=== PATIENT | female | born 1930 | race Caucasian/White ===

== ENCOUNTER 2017-11-16 12:55 | Emergency (ER) | payer OTHER ==
[2017-11-16] MEDS ORDERED: ONDANSETRON 4 MG/2 ML VIAL ONE ×2 (15:15→16:26)
[2017-11-16] MEDS ORDERED: NA CHLORIDE 0.9% 1,000 ML ONE (15:15)
[2017-11-16 15:16] LABS: Absolute Lymphocytes (CBC) 2.5 K/uL (0.7-4.9); Absolute Monocytes 1.2 K/uL (0.1-1.3); Absolute Neutrophil 6.1 K/uL (1.8-8.0); Basophils % 0.7 % (0-1.3); Eosinophils % 0.7 % (0-4.4); Hematocrit 33.9 % (36.0-45.0); Lymphocytes % 24.9 % (15.3-44.8); MCV 88.3 fL (80-100); MPV 8.1 fL (7.6-11.3); RBC Red Blood Cell Count 3.84 M/uL (3.86-4.86)
[2017-11-16 15:34] LABS: Albumin 3.4 g/dL (3.4-5.0); Bilirubin Direct 0.1 mg/dL (0-0.2); Bilirubin Total 0.3 mg/dL (0.2-1.0); Potassium 3.6 mmol/L (3.5-5.1); Protein, Total 6.6 g/dL (6.4-8.2)
[2017-11-16] MEDS ORDERED: PROMETHAZINE 25 MG/ML VIAL ONE (16:50)
--- NOTE | 2017-11-16 17:45 | RAD REPORT ---
EXAM DESCRIPTION: CT - Abdomen Pelvis W Contrast - 11/16/2017 5:30 pm CLINICAL HISTORY: Left-sided abdominal pain, patient details history of diverticulitis diagnosis 1 w [id number] earlier COMPARISON: No recent imaging, January 2017 study reviewed. TECHNIQUE: Biphasic, helical CT imaging of the abdomen and pelvis was performed following 100 ml non -ionic IV contrast. Oral contrast was given. All CT scans are performed using dose optimization technique as appropriate and may include automated exposure control or mA/KV adjustment according to patient size. FINDINGS: Chronic atelectasis changes are present abutting the chronic right hemidiaphragm elevation . No pericardial thickening or effusion. The liver, spleen, and pancreas show no suspicious findings. Gallbladder and biliary tree are also wi thout suspicious finding. Symmetric renal function is seen with no hydronephrosis or suspicious renal mass. Patient has numerou s bilateral renal cysts, more so on the left. These are similar to the comparison. No pyelonephritis. No urinary bladder abnormalities. Patient has several vascular calcifications present. In the left s ayesha pelvis (image 78/102) there is a 2 mm calcific density potentially a distal left ureteral calculu s. Small atrophic uterus is present. No ovarian abnormality. No acute gastric finding. No small bowel dilatation, wall thickening or mass. Patient has very minima l left-sided diverticulosis. No diverticulitis, mass, wall thickening or other acute colon process. No free air, free fluid or inflammatory stranding. No hernia, mass or bulky lymphadenopathy. No adre nal abnormality. No suspicious bony findings. IMPRESSION: No diverticulitis or acute colon process. Patient has very little diverticulosis. A 2 millimeter calcification is seen in close proximity or within the distal left ureter. There is n o hydronephrosis, asymmetric function or other findings to indicate ureteral obstruction. Correlation is needed with any clinical presentation or UA abnormality that might indicate a stone. Otherwise, no abnormality seen that would explain left-sided symptoms.
[2017-11-16 19:02] LABS: Urine Blood NEGATIVE (NEG); Urine Glucose NEGATIVE (NEG); Urine Protein NEGATIVE (NEG); Urine Specific Gravity 1.015 (1.005-1.030)
[2017-11-16 19:03] LABS: Urine Bacteria <20 /HPF (<20); Urine Culture Reflex Order NOT NEEDED; Urine RBC <5 /HPF (NONE SEEN)
--- NOTE | 2017-11-16 19:06 | ER ---
Nurse's Notes [facility] Name: Itzel Nunez Age: 86 yrs Sex: Female : 1930 Arrival Date: 11/16/2017 Time: 12:58 Bed 3 Private MD: Sky Draper C Diagnosis: Unspecified abdominal pain Presentation: 11/16 13:20 Presenting complaint: Patient states: Thursday a week ago, i was dx with diverticulitis, hj and was Rx with 2 antibiotics; now, i have not been eating or drinking right; denies fever and chills; reports constipation and abd pain;. Transition of care: patient was not received from another setting of care. Onset of symptoms was November 16, 2017. Risk Assessment: Do you want to hurt yourself or someone else? Patient reports no desire to harm self or others. Initial Sepsis Screen: Does the patient meet any 2 criteria? No. Patient's initial sepsis screen is negative. Does the patient have a suspected source of infection? No. Patient's initial sepsis screen is negative. Care prior to arrival: None. 13:20 Method Of Arrival: Ambulatory 13:20 Acuity: BRENDAN 3 hj Triage Assessment: 13:23 General: Appears in no apparent distress. uncomfortable, Behavior is calm, cooperative, hj appropriate for age. Pain: Complains of pain in abdomen. GI: Reports lower abdominal pain. Historical: - Allergies: 13:23 No Known Allergies; hj - Home Meds: 13:23 Metoprolol Tartrate Oral [Active]; Tramadol Oral for Chronic pain [Active]; Hyzaar Oral hj [Active]; - PMHx: 13:23 Back pain; High Cholesterol; Hypertension; hj - PSHx: 13:23 None; hj - Immunization history:: Adult Immunizations up to date. - Social history:: Smoking status: Patient/guardian denies using tobacco, Patient/guardian denies using alcohol. - Ebola Screening: : Patient negative for fever greater than or equal to 101.5 degrees Fahrenheit, and additional compatible Ebola Virus Disease symptoms Patient denies exposure to infectious person Patient denies travel to an Ebola-affected area in the 21 days before illness onset. Screenin:24 Abuse screen: Denies threats or abuse. Denies injuries from another. Nutritional hj screening: No deficits noted. Tuberculosis screening: No symptoms or risk factors identified. Fall Risk None identified. Assessment: 13:24 GI: Bowel sounds present X 4 quads. Abd is soft Abdomen is tender to palpation. hj 15:00 General: Appears in no apparent distress. comfortable, well groomed, well developed, sg well nourished, Behavior is calm, cooperative, appropriate for age. Pain: Complains of pain in abdomen Quality of pain is described as aching. Neuro: Level of Consciousness is awake, alert, obeys commands, Oriented to person, place, time, situation, Hall Manager are equal bilaterally Moves all extremities. Full function Speech is normal, Facial symmetry appears normal. Cardiovascular: Heart tones S1 S2 present Capillary refill is brisk in bilateral fingers Patient's skin is warm and dry. Chest pain is denied. Respiratory: Airway is patent Respiratory effort is even, unlabored, Respiratory pattern is regular, symmetrical. : No signs and/or symptoms were reported regarding the genitourinary system. EENT: No signs and/or symptoms were reported regarding the EENT system. Derm: Skin is pink, warm \T\ dry. Musculoskeletal: Circulation, motion, and sensation intact. Range of motion: intact in all extremities, Swelling absent. 15:48 Reassessment: Patient appears in no apparent distress at this time. Patient and/or sg family updated on plan of care and expected duration. Pain level reassessed. pt reports finishing her PO contrast, CT notified. 16:27 Reassessment: Patient appears in no apparent distress at this time. Patient and/or sg family updated on plan of care and expected duration. Pain level reassessed. Patient is alert, oriented x 3, equal unlabored respirations, skin warm/dry/pink. Patient states symptoms have not improved. 16:51 Reassessment: Patient appears in no apparent distress at this time. Patient and/or sg family updated on plan of care and expected duration. Pain level reassessed. Patient is alert, oriented x 3, equal unlabored respirations, skin warm/dry/pink. awaiting CT scan at this time, will continue to monitor Patient states symptoms have not improved. 19:00 Reassessment: RECD REPORT FROM LAUREN GALVAN. 86YO WF P/W ABD PAIN, ALL CURRENT ORDERS bp COMPLETED. VS STABLE, NO ACUTE FINDINGS AT THIS TIME. 19:17 Reassessment: Patient appears in no apparent distress at this time. Patient and/or tl2 family updated on plan of care and expected duration. Pain level reassessed. Patient is alert, oriented x 3, equal unlabored respirations, skin warm/dry/pink. Pt and family verbalized understanding of discharge instructions, need for follow up and prescription usage. Pt taken out of ER by family via wheelchair Patient states feeling better. Vital Signs: 13:24 BP 104 / 60; Pulse 65; Resp 18; Temp 98.0(O); Pulse Ox 95% on R/A; Weight 64.41 kg; hj Height 5 ft. 2 in. (157.48 cm); 17:07 BP 152 / 74; Pulse 64; Resp 18; Pulse Ox 92% on R/A; sv 18:33 BP 132 / 61; Pulse 75; Resp 18; Pulse Ox 93% ; mh5 19:00 BP 149 / 81; Pulse 82; Resp 14; Pulse Ox 91% ; bp 13:24 Body Mass Index 25.97 (64.41 kg, 157.48 cm) ED Course: 12:58 Patient arrived in ED. rg4 12:58 Sky Draper MD is Private Physician. rg4 13:22 Triage completed. hj 13:24 Arm band placed on right wrist. hj 13:24 Patient has correct armband on for positive identification. Placed in gown. Bed in low hj position. Call light in reach. Side rails up X 1. Adult w/ patient. 14:14 Wilman Amaya, MANDY is Primary Nurse. sg 14:42 David Godinez PA is PHCP. cp 14:42 David Luu MD is Attending Physician. cp 15:00 Initial lab(s) drawn, by sd, sent to lab. Inserted saline lock: 22 gauge in left sg antecubital area, using aseptic technique. Blood collected. 16:[address] Scan. sg 17:30 CT completed. Patient moved to CT via stretcher. Patient moved back from CT. cw1 17:30 CT Abd/Pelvis - W/Contrast In Process Unspecified. EDMS 18:30 Straight cath inserted, using sterile technique, 16 Fr. Specimen obtained. Patient mh5 tolerated well. 18:31 Urine Microscopic Only Sent. mh5 19:05 Sky Draper MD is Referral Physician. cp 19:17 Primary Nurse role handed off by Wilman Amaya RN sg 19:17 No provider procedures requiring assistance completed. IV discontinued, intact, tl2 bleeding controlled, No redness/swelling at site. Pressure dressing applied. 19:18 Chavez Lorenzo, RN is Primary Nurse. bp Administered Medications: 15:10 Drug: NS 0.9% 1000 ml Route: IV; Rate: 75 ml/hr; Site: left antecubital; sg 19:21 Follow up: IV Status: Order to discontinue infusion tl2 15:10 Drug: NS 0.9% 250 ml Route: IV; Rate: bolus; Site: left antecubital; sg 19:21 Follow up: IV Status: Completed infusion; IV Intake: 250ml tl2 15:10 Drug: Zofran 4 mg Route: IVP; Site: left antecubital; sg 16:10 Follow up: Response: No adverse reaction; Nausea unchanged sg 16:26 Drug: Zofran 4 mg Route: IVP; Site: left antecubital; sg 19:20 Follow up: Response: Marked relief of symptoms bp 16:49 Drug: Phenergan 6.25 mg Route: IVP; Site: left antecubital; sv 19:20 Follow up: Response: Marked relief of symptoms bp Intake: 19:21 IV: 250ml; Total: 250ml. tl2 Outcome: 19:05 Discharge ordered by MD. cp 19:17 Discharged to home via wheelchair, with family. tl2 19:17 Condition: stable 19:17 Discharge instructions given to patient, family, Instructed on discharge instructions, follow up and referral plans. medication usage, Demonstrated understanding of instructions, follow-up care, medications, Prescriptions given X 1. 19:32 Patient left the ED. tl2 Signatures: Dispatcher [employer] EDRadha Wang RN Wilman Mendez RN RN Kimberli Ricks cw1 Homer Mtz RN David Macias PA PA cp Knox, Taylor RN RN 2 Clari Perkins [facility] Mi Rodriguez [facility] Chavez Lorenzo, RN RN bp
--- NOTE | 2017-11-16 19:06 | EDPHYS ---
Physician Documentation [facility] Name: Itzel Nunez Age: 86 yrs Sex: Female : 1930 Arrival Date: 11/16/2017 Time: 12:58 Bed 3 Private MD: Sky Draper C ED Physician David Luu HPI: 11/16 14:47 This 86 yrs old Female presents to ER via Ambulatory with complaints of cp Abdominal Pain. 14:47 The patient presents with abdominal pain in the left upper quadrant. Onset: The cp symptoms/episode began/occurred gradually. The symptoms do not radiate. Associated signs and symptoms: Pertinent positives: constipation, nausea, decreased appetite. The symptoms are described as constant. Modifying factors: the symptoms are aggravated by pressure. Patient reports being diagnosed with diverticulitis 1 week ago and being prescribed oral antibiotics. Patient reports continued pain and decreased appetite. Historical: - Allergies: 13:23 No Known Allergies; hj - Home Meds: 13:23 Metoprolol Tartrate Oral [Active]; Tramadol Oral for Chronic pain [Active]; Hyzaar Oral hj [Active]; - PMHx: 13:23 Back pain; High Cholesterol; Hypertension; hj - PSHx: 13:23 None; hj - Immunization history:: Adult Immunizations up to date. - Social history:: Smoking status: Patient/guardian denies using tobacco, Patient/guardian denies using alcohol. - Ebola Screening: : Patient negative for fever greater than or equal to 101.5 degrees Fahrenheit, and additional compatible Ebola Virus Disease symptoms Patient denies exposure to infectious person Patient denies travel to an Ebola-affected area in the 21 days before illness onset. ROS: 14:50 Constitutional: Positive for poor PO intake, Negative for body aches, chills, fever. cp 14:50 Eyes: Negative for injury, pain, redness, and discharge. cp 14:50 ENT: Negative for drainage from ear(s), ear pain, sore throat, difficulty swallowing, difficulty handling secretions. 14:50 Cardiovascular: Negative for chest pain, edema, palpitations. 14:50 Respiratory: Negative for cough, shortness of breath, wheezing. 14:50 Abdomen/GI: Positive for abdominal pain, nausea, constipation, anorexia, Negative for vomiting, diarrhea, black/tarry stool, rectal bleeding. 14:50 Back: Negative for pain at rest, pain with movement, radiated pain. 14:50 : Negative for urinary symptoms. 14:50 Skin: Negative for cellulitis, rash. 14:50 Neuro: Negative for altered mental status, dizziness, headache, syncope, near syncope, weakness. 14:50 All other systems are negative. Exam: 15:00 Constitutional: The patient appears in no acute distress, alert, awake, well developed, cp well nourished. 15:00 Head/Face: Normocephalic, atraumatic. cp 15:00 Eyes: Periorbital structures: appear normal, Pupils: equal, round, and reactive to light and accomodation, Extraocular movements: intact throughout, Conjunctiva: normal, no exudate, no injection, Sclera: no appreciated abnormality, Lids and lashes: appear normal, bilaterally. 15:00 ENT: External ear(s): are unremarkable, Ear canal(s): are normal, clear, TM's: bulging, is not appreciated, dullness, bilaterally, erythema, is not appreciated, bilaterally, Nose: is normal, Mouth: Lips: moist, Oral mucosa: pink and intact, moist, Posterior pharynx: is normal, airway is patent, no erythema, no exudate. 15:00 Neck: ROM/movement: is normal, is supple, without pain, no range of motions limitations, no meningismus, no nuchal rigidity. 15:00 Chest/axilla: Inspection: normal, Palpation: is normal, no crepitus, no tenderness. 15:00 Cardiovascular: Rate: normal, Rhythm: regular. 15:00 Respiratory: the patient does not display signs of respiratory distress, Respirations: normal, no use of accessory muscles, no retractions, no splinting, no tachypnea, labored breathing, is not present, Breath sounds: are clear throughout, no decreased breath sounds, no stridor, no wheezing. 15:00 Abdomen/GI: Inspection: abdomen appears normal, Bowel sounds: active, all quadrants, Palpation: soft, in all quadrants, mild abdominal tenderness, in the left upper quadrant, rebound tenderness, is not appreciated, voluntary guarding, is not appreciated, involuntary guarding, is not appreciated. 15:00 Back: pain, is absent, ROM is normal. 15:00 Skin: cellulitis, is not appreciated, no rash present. 15:00 Neuro: Orientation: to person, place \T\ time. Mentation: lucid, able to follow commands, Cerebellar function: is grossly normal, Motor: moves all fours, strength is normal, Sensation: no obvious gross deficits. Vital Signs: 13:24 BP 104 / 60; Pulse 65; Resp 18; Temp 98.0(O); Pulse Ox 95% on R/A; Weight 64.41 kg; hj Height 5 ft. 2 in. (157.48 cm); 17:07 BP 152 / 74; Pulse 64; Resp 18; Pulse Ox 92% on R/A; sv 18:33 BP 132 / 61; Pulse 75; Resp 18; Pulse Ox 93% ; mh5 19:00 BP 149 / 81; Pulse 82; Resp 14; Pulse Ox 91% ; bp 13:24 Body Mass Index 25.97 (64.41 kg, 157.48 cm) hj MDM: 14:42 Patient medically screened. cp 15:00 Differential diagnosis: bowel obstruction, cholecystitis, Cholelithiasis, cp diverticulitis, gastritis, pancreatitis, Pyelonephritis, Ureterolithiasis, urinary tract infection. 18:00 Data reviewed: vital signs, nurses notes, lab test result(s), radiologic studies, CT cp scan. 18:36 Physician consultation: A Bonny CARVAJAL was called at 18:36, left message on voicemail. cp 19:05 Physician consultation: A Bonny CARVAJAL was called at 19:05, left message on voicemail. cp 11/16 14:51 Order name: Amylase, Serum; Complete Time: 16:31 cp 11/16 14:51 Order name: Basic Metabolic Panel; Complete Time: 16:31 cp 11/16 17:57 Interpretation: Normal except: GFR 42. cp 11/16 14:51 Order name: CBC with Diff; Complete Time: 16:31 cp 11/16 16:31 Interpretation: Normal except: RBC 3.84; HGB 11.5; HCT 33.9. cp 11/16 14:51 Order name: Creatinine for Radiology; Complete Time: 16:31 cp 11/16 17:14 Interpretation: Abnormal: GFR 42. cp 11/16 14:51 Order name: Hepatic Function; Complete Time: 16:31 cp 11/16 17:53 Interpretation: Normal except: AST 14. cp 11/16 14:51 Order name: Lipase; Complete Time: 16:31 cp 11/16 14:51 Order name: Urine Microscopic Only; Complete Time: 19:04 cp 11/16 19:04 Interpretation: Reviewed. 11/16 14:51 Order name: CT Abd/Pelvis - W/Contrast; Complete Time: 17:47 cp 11/16 18:56 Order name: Urine Dipstick--Ancillary (enter results); Complete Time: 19:04 rg2 11/16 13:50 Order name: Urine Dipstick-Ancillary (obtain specimen); Complete Time: 19:17 hj 11/16 14:51 Order name: IV Saline Lock; Complete Time: 15:18 cp 11/16 14:51 Order name: Labs collected and sent; Complete Time: 15:18 cp 11/16 18:00 Order name: Straight Cath - Urine; Complete Time: 18:31 sg Administered Medications: 15:10 Drug: NS 0.9% 1000 ml Route: IV; Rate: 75 ml/hr; Site: left antecubital; sg 19:21 Follow up: IV Status: Order to discontinue infusion tl2 15:10 Drug: NS 0.9% 250 ml Route: IV; Rate: bolus; Site: left antecubital; sg 19:21 Follow up: IV Status: Completed infusion; IV Intake: 250ml tl2 15:10 Drug: Zofran 4 mg Route: IVP; Site: left antecubital; sg 16:10 Follow up: Response: No adverse reaction; Nausea unchanged sg 16:26 Drug: Zofran 4 mg Route: IVP; Site: left antecubital; sg 19:20 Follow up: Response: Marked relief of symptoms bp 16:49 Drug: Phenergan 6.25 mg Route: IVP; Site: left antecubital; sv 19:20 Follow up: Response: Marked relief of symptoms bp Disposition: 11/17 07:21 Co-signature as Attending Physician, David Luu MD I agree with the assessment and arash plan of care. Disposition: 11/16/17 19:05 Discharged to Home. Impression: Unspecified abdominal pain. - Condition is Stable. - Discharge Instructions: Abdominal Pain, Adult. - Prescriptions for Zofran 4 mg Oral Tablet - take 1 tablet by ORAL route every 12 hours As needed; 20 tablet. - Medication Reconciliation Form, Thank You Letter, Antibiotic Education, Prescription Opioid Use form. - Follow up: Sky Draper MD; When: 2 - 3 days; Reason: Recheck today's complaints. - Problem is new. - Symptoms have improved. Signatures: Dispatcher [employer] Radha Meza, RN RN Wilman Corado RN RN sg Anderson, Corey, MD MD cha Joaquin, Henry RN David Macias, LIZABETH BARONE cp Brittny Ojeda RN RN tl2 Chavez Lorenzo RN bp Corrections: (The following items were deleted from the chart) 11/16 19:32 19:05 11/16/2017 19:05 Discharged to Home. Impression: Unspecified abdominal pain. tl2 Condition is Stable. Forms are Medication Reconciliation Form, Thank You Letter, Antibiotic Education, Prescription Opioid Use. Follow up: Sky Draper; When: 2 - 3 days; Reason: Recheck today's complaints. Problem is new. Symptoms have improved. cp
== END 2017-11-16 19:32 | disposition home or self-care (01) ==
LOC: ER 12:55
DX: R10.12 Left upper quadrant pain (principal); I10 Essential (primary) hypertension; E78.00 Pure hypercholesterolemia, unspecified
CPT/HCPCS: 36415; 74177; 80048; 80076; 82150; 83690; 85025; J2405 ×2; J2550; J7030; Q9967; 51702; 81003; 81015; 96361; 96365; 96366; 96374; 96375; 99284

== ENCOUNTER 2018-03-28 11:27 | Inpatient (IN) | payer OTHER ==
[2018-03-28 12:35] LABS: Absolute Lymphocytes (CBC) 1.9 K/uL (0.7-4.9); Absolute Monocytes 1.1 K/uL (0.1-1.3); Absolute Neutrophil 6.9 K/uL (1.8-8.0); Basophils % 0.5 % (0-1.3); Eosinophils % 0.3 % (0-4.4); Hematocrit 37.7 % (36.0-45.0); MCH 31.1 pg (27.0-35.0); MCV 90.8 fL (80-100); MPV 8.2 fL (7.6-11.3); Monocytes % 11.1 % (3.3-12.3); RBC Red Blood Cell Count 4.15 M/uL (3.86-4.86)
[2018-03-28 12:45] LABS: Protime INR 1.06
[2018-03-28 12:47] LABS: Albumin 3.5 g/dL (3.4-5.0); Bilirubin Direct 0.2 mg/dL (0-0.2); Bilirubin Total 0.7 mg/dL (0.2-1.0); Magnesium 1.9 mg/dL (1.8-2.4); Potassium 3.6 mmol/L (3.5-5.1); Protein, Total 7.5 g/dL (6.4-8.2); Troponin (Emerg Dept Use Only) 0.08 ng/mL (0.0-0.045)
[2018-03-28] MEDS ORDERED: NA CHLORIDE 0.9% 1,000 ML ONE (13:04)
--- NOTE | 2018-03-28 13:05 | RAD REPORT ---
EXAM DESCRIPTION: CT - Head C Spine Cap Wo Con - 03/28/2018 12:32 pm CLINICAL HISTORY: Trauma, head and neck injury. Chest, abdomen and pelvis pain. PAIN COMPARISON: Abdomen Pelvis W Contrast dated 11/16/2017; Abdomen Pelvis Wo Contrast dated 01/28/20 17; Facial Bones W/ Mpr dated 07/27/2015; Thorax Wo Con dated 12/14/2015 TECHNIQUE: CT head without contrast. CT cervical spine without contrast with coronal and sagittal reformatted images. CT chest, abdomen and pelvis without contrast with coronal and sagittal reformatted images of the spi ne. All CT scans are performed using dose optimization technique as appropriate and may include automated exposure control or mA/KV adjustment according to patient size. FINDINGS: CT HEAD WITHOUT CONTRAST: No intracranial hemorrhage, hydrocephalus or extra-axial fluid collection. Mild generalized brain atr ophy is present with mild periventricular and deep white matter chronic microvascular ischemic change s. No areas of brain edema or midline shift. The paranasal sinuses and mastoids are clear. The calvarium is intact. CT CERVICAL SPINE WITHOUT CONTRAST: No fracture or subluxation. Prominent mid and lower cervical degenerative changes. The prevertebral s oft tissues are normal in thickness. CT CHEST, ABDOMEN, PELVIS WITHOUT CONTRAST: NOTE: Lack of contrast is a significant limitation in the assessment of trauma related findings. Spec ifically, solid organ, vascular and bowel evaluation is significantly limited. Mild linear subsegmental atelectasis in both lung bases.No evidence of pulmonary infiltrate or contus ion.No pneumothorax or pericardial/pleural fluid. No evidence of intra-abdominal visceral injury, free fluid or free air is seen within the above detai led limitations. No concerning pelvic findings. Mild to moderate compression fracture affects T11, likely acute. No significant canal compromise susp ected. IMPRESSION: Acute T11 compression fracture seen, with estimated loss of vertebral body height at 20% . No significant central canal compromise suspected.
--- NOTE | 2018-03-28 13:09 | RAD REPORT ---
EXAM DESCRIPTION: RAD - Chest Single View - 03/28/2018 12:45 pm CLINICAL HISTORY: COUGH Chest pain. COMPARISON: CHEST SINGLE VIEW dated 05/01/2013; CHEST PA AND LAT 2 VIEW dated 04/29/2010; CHEST PA AND LAT 2 VIEW dated 11/26/2009; CHEST PA AND LAT 2 VIEW dated 08/31/2008 FINDINGS: Portable technique limits examination quality. Chronic elevation of right hemidiaphragm is noted. The lungs appear grossly clear. The heart is moder ately prominent size. No displaced fractures. IMPRESSION: No acute intrathoracic process suspected.
--- NOTE | 2018-03-28 13:12 | RAD REPORT ---
EXAM DESCRIPTION: RAD - Elbow Left 3 View - 03/28/2018 12:45 pm CLINICAL HISTORY: PAIN COMPARISON: No comparisons FINDINGS: Diffuse osteopenia is seen with the laceration present in the olecranon soft tissues. No f racture or dislocation of the left elbow seen
--- NOTE | 2018-03-28 13:37 | ER ---
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 Patient reports she was able to get herself up onto bed. Reports pain to lower back, left elbow, and bilateral knees. Back pain is chronic. Transition of care: patient was not received from another setting of care. 11:32 Method Of Arrival: Wheelchair aj 11:34 Care prior to arrival: None. Mechanism of Injury: Fall from standing position. Trauma aj event details: Injury occurred in the [facility], Injury occurred: at home. Injury occurred: March 26, 2018. 11:34 Acuity: BRENDAN 3 aj 11:45 Onset of symptoms was March 2018. Risk Assessment: Do you want to hurt yourself or aa5 someone else? Patient reports no desire to harm self or others. Initial Sepsis Screen: Does the patient meet any 2 criteria? No. Patient's initial sepsis screen is negative. Does the patient have a suspected source of infection? No. Patient's initial sepsis screen is negative. Trauma Activation: Not Applicable Physician: ED Physician; Name: ; Notified At: ; Arrived At: Physician: General Surgeon; Name: ; Notified At: ; Arrived At: Physician: Radiology; Name: ; Notified At: ; Arrived At: Physician: Respiratory; Name: ; Notified At: ; Arrived At: Physician: Lab; Name: ; Notified At: ; Arrived At: Historical: - Allergies: 11:37 No Known Allergies; aj - Home Meds: 11:37 Hyzaar Oral [Active]; Metoprolol Tartrate Oral [Active]; Tramadol Oral for Chronic pain aj [Active]; - PMHx: 11:37 Back pain; High Cholesterol; Hypertension; aj - PSHx: 11:37 None; aj - Immunization history: Last tetanus immunization: - up to date. - Social history:: Smoking status: Patient/guardian denies using tobacco. - Ebola Screening: : Patient negative for fever greater than or equal to 101.5 degrees Fahrenheit, and additional compatible Ebola Virus Disease symptoms Patient denies exposure to infectious person Patient denies travel to an Ebola-affected area in the 21 days before illness onset No symptoms or risks identified at this time. Screenin:15 Abuse screen: Denies threats or abuse. Nutritional screening: No deficits noted. aa5 Tuberculosis screening: No symptoms or risk factors identified. Fall Risk Fall in past 12 months (25 points). Secondary diagnosis (15 points) impaired mobility, IV access (20 points). Ambulatory Aid- Crutches/Cane/Walker (15 pts). Gait- Weak (10 pts.). Mental Status- Oriented to own ability (0 pts). Total [place] Fall Scale indicates High Risk Score (45 or more points). Fall prevention measures have been instituted. Side Rails Up X 2 Placed Close to Nursing Station Family Present and informed to notify staff if the need to leave the bedside. Primary Survey: 11:34 A: Airway: patent. Breathing/Chest: Respiratory pattern: regular, Respiratory effort: aj spontaneous, unlabored, Breath sounds: clear, bilaterally. Circulation: Skin color: pink. Disability Alert. Reassessment Airway Airway Patent Breathing/Chest Respiratory pattern Regular Respiratory effort Spontaneous Unlabored Circulation Color [place] Temperature Warm Dry Disability Alert. Assessment: 11:34 General: Appears in no apparent distress. comfortable, Behavior is calm, cooperative, aj appropriate for age. Pain: Complains of pain in low back area, left elbow, right leg and left leg. Neuro: Level of Consciousness is awake, alert, obeys commands, Oriented to person, place, time, situation, Appropriate for age. Respiratory: Airway is patent Respiratory effort is even, unlabored, Respiratory pattern is regular, symmetrical. Derm: Skin is intact, is healthy with good turgor, Skin is pink, warm \\T\\ dry. normal. Musculoskeletal: Circulation, motion, and sensation intact. Range of motion: intact in all extremities, Reports pain in low back area, left elbow, right leg and left leg. 11:45 General: Appears comfortable, Behavior is calm, cooperative. Pain: Complains of pain in aa5 right mid back and left elbow Pain does not radiate. Pain currently is 8 out of 10 on a pain scale. Quality of pain is described as aching, Pain began Pt reports back pain is chronic but was aggravated after a fall 2-3 days ago and left elbow pain since fall 2-3 days ago Is intermittent, Aggravated by Pt reports pain only with movement. Neuro: Level of Consciousness is awake, alert, obeys commands, Oriented to person, place, time, situation, Aircraft Inspector are weak bilaterally Moves all extremities. Speech is normal, Facial symmetry appears normal, Pupils are PERRLA, Reports generalized weakness . Cardiovascular: Heart tones S1 S2 present Rhythm is regular. Respiratory: Airway is patent Respiratory effort is even, unlabored, Respiratory pattern is regular, symmetrical, Breath sounds are clear bilaterally. Denies cough, shortness of breath. GI: Abdomen is round non-distended, Bowel sounds present X 4 quads. Abd is soft and non tender X 4 quads. Reports decreased appetite x 2-3 days ago. : No signs and/or symptoms were reported regarding the genitourinary system. EENT: No signs and/or symptoms were reported regarding the EENT system. Derm: Skin is pink, warm \\T\\ dry. Bruising that is dark purple, green, on left elbow. Musculoskeletal: Range of motion: intact in all extremities. 12:52 Reassessment: Patient and/or family updated on plan of care and expected duration. Pain aa5 level reassessed. Patient is alert, oriented x 3, equal unlabored respirations, skin warm/dry/pink. Pt back from radiology . 13:15 Reassessment: Pt assisted to bedside commode, urine specimen collected. . aa5 14:20 Reassessment: Patient and/or family updated on plan of care and expected duration. Pain aa5 level reassessed. Patient is alert, oriented x 3, equal unlabored respirations, skin warm/dry/pink. 14:20 Pain: Pain currently is 5 out of 10 on a pain scale. aa5 15:20 Reassessment: Patient is alert, oriented x 3, equal unlabored respirations, skin aa5 warm/dry/pink. Vital Signs: 11:34 BP 149 / 69; Pulse 72; Resp 20; Temp 97.7; Pulse Ox 97% on R/A; Weight 66.68 kg; Height aj 5 ft. 3 in. (160.02 cm); 12:00 BP 151 / 82; Pulse 77; Resp 18 S; Pulse Ox 95% on R/A; aa5 12:52 Pulse Ox 91% on R/A; aa5 12:53 BP 143 / 75; Pulse 67; Resp 18 S; Pulse Ox 95% on 2 lpm NC; aa5 13:32 BP 144 / 78; Pulse 72; Resp 20 S; Pulse Ox 96% on 2 lpm NC; aa5 11:34 Body Mass Index 26.04 (66.68 kg, 160.02 cm) aj 12:52 Pt denies SOB, pt states "My oxygen is normally 94 or 95" aa5 [place] Coma Score: 11:34 Eye Response: spontaneous(4). Verbal Response: oriented(5). Motor Response: obeys aj commands(6). Total: 15. 12:00 Eye Response: spontaneous(4). Verbal Response: oriented(5). Motor Response: obeys aa5 commands(6). Total: 15. 12:53 Eye Response: spontaneous(4). Verbal Response: oriented(5). Motor Response: obeys aa5 commands(6). Total: 15. 13:32 Eye Response: spontaneous(4). Verbal Response: oriented(5). Motor Response: obeys aa5 commands(6). Total: 15. Trauma Score (Adult): 11:34 Eye Response: spontaneous(1); Verbal Response: oriented(1); Motor Response: obeys aj commands(2); Systolic BP: > 89 mm Hg(4); Respiratory Rate: 10 to 29 per min(4); Lucile Score: 15; Trauma Score: 12 ED Course: 11:29 Patient arrived in ED. as 11:30 Sky Draper MD is Private Physician. as 11:35 Triage completed. aj 11:37 Arm band placed on left wrist. Patient placed in an exam room. aj 11:38 David Luu MD is Attending Physician. arash 11:42 Dorcas Hinson, RN is Primary Nurse. aa5 11:45 Patient has correct armband on for positive identification. Placed in gown. Bed in low aa5 position. Call light in reach. Side rails up X2. sample worker on. Pulse ox on. NIBP on. 12:05 Radiology exam delayed due to dorcas to call when pts ready. eh 12:10 Inserted saline lock: 20 gauge in right antecubital area, using aseptic technique. aa5 Blood collected. 12:10 Initial lab(s) drawn, by me, sent to lab. First set of blood cultures drawn by me. aa5 12:20 Second set of blood cultures drawn by me. aa5 12:30 CT completed. Patient moved to CT via stretcher. Patient moved back from CT. eh 12:33 CT Traumagram (Head C Spine CAP wo con) In Process Unspecified. EDMS 12:43 XRAY Chest (1 view) In Process Unspecified. EDMS 12:43 Elbow Left 3 View XRAY In Process Unspecified. EDMS 13:21 No provider procedures requiring assistance completed. aa5 13:35 Sky Draper MD is Hospitalizing Provider. [facility] 13:57 CT completed. Patient moved to CT via stretcher. Patient moved back from CT. 15:20 Patient admitted, IV remains in place. aa5 Administered Medications: 13:00 Drug: NS 0.9% 1000 ml Route: IV; Rate: 125 ml/hr; Site: right antecubital; aa5 15:20 Follow up: IV Status: Infusion continued upon admission aa5 14:17 Drug: SOLU-Medrol 125 mg Route: IVP; Site: right antecubital; aa5 14:25 Follow up: Response: No adverse reaction aa5 14:18 Drug: Lovenox 60 mg Route: Sub-Q; Site: right lower abdomen; aa5 15:00 Follow up: Response: No adverse reaction aa5 14:20 Drug: Xopenex 2.5 mg Route: Inhalation; aa5 14:20 Drug: AtroVENT Aerosol 0.5 mg Route: Inhalation; aa5 14:20 Drug: Rocephin - (cefTRIAXone) 1 grams {Note: administered slow IVP per pharmacy aa5 protocol at this time. .} Route: IVPB; Infused Over: 30 mins; Site: right antecubital; 14:40 Follow up: Response: No adverse reaction aa5 14:37 Not Given (Pt reports taking ASA 325mg this morning ): Aspirin 162 mg PO once aa5 Outcome: 13:37 Decision to Hospitalize by Provider. [facility] 15:20 Admitted to Tele accompanied by tristin, via wheelchair, with oxygen, with chart, Report aa5 called to MANDY Shafer 15:20 Condition: stable 15:20 Instructed on the need for admit, Demonstrated understanding of instructions. 15:36 Patient left the ED. aa5 Signatures: Dispatcher [employer] Cynthia Stewart, MANDY RN David Baeza MD MD cha Hagler, Ervin eh Martinez, Amelia as Calderon, Audri, MANDY RN aa5 Corrections: (The following items were deleted from the chart) 13:30 12:53 BP 143 / 75; Pulse 67bpm; Resp 18bpm; Spontaneous; Pulse Ox 95% Nasal Cannula; aa5aa5 13:30 12:52 Pulse Ox 91% RA; aa5 aa5 14:39 14:20 Rocephin - (cefTRIAXone) 1 grams IVPB in right antecubital over 30 mins aa5 aa5
--- NOTE | 2018-03-28 13:37 | EDPHYS ---
Physician Documentation [facility] Name: Itzel Nunez Age: 87 yrs Sex: Female : 1930 Arrival Date: 03/28/2018 Time: 11:29 Bed 7 Private MD: Sky Draper C ED Physician David Luu HPI: 03/28 13:30 This 87 yrs old Female presents to ER via Wheelchair with complaints of arash Weakness. Historical: - Allergies: 11:37 No Known Allergies; aj - Home Meds: 11:37 Hyzaar Oral [Active]; Metoprolol Tartrate Oral [Active]; Tramadol Oral for Chronic pain aj [Active]; - PMHx: 11:37 Back pain; High Cholesterol; Hypertension; aj - PSHx: 11:37 None; aj - Immunization history: Last tetanus immunization: - up to date. - Social history:: Smoking status: Patient/guardian denies using tobacco. - Ebola Screening: : Patient negative for fever greater than or equal to 101.5 degrees Fahrenheit, and additional compatible Ebola Virus Disease symptoms Patient denies exposure to infectious person Patient denies travel to an Ebola-affected area in the 21 days before illness onset No symptoms or risks identified at this time. ROS: 13:30 Constitutional: Negative for fever, chills, and weight loss, Eyes: Negative for injury, arash pain, redness, and discharge, ENT: Negative for injury, pain, and discharge, Neck: Negative for injury, pain, and swelling, Cardiovascular: Negative for chest pain, palpitations, and edema, Abdomen/GI: Negative for abdominal pain, nausea, vomiting, diarrhea, and constipation, : Negative for injury, bleeding, discharge, and swelling, MS/Extremity: Negative for injury and deformity, Skin: Negative for injury, rash, and discoloration, Psych: Negative for depression, anxiety, suicide ideation, homicidal ideation, and hallucinations, Allergy/Immunology: Negative for hives, rash, and allergies, Endocrine: Negative for neck swelling, polydipsia, polyuria, polyphagia, and marked weight changes, Hematologic/Lymphatic: Negative for swollen nodes, abnormal bleeding, and unusual bruising. 13:30 Respiratory: Positive for cough, shortness of breath, at rest. 13:30 Back: Positive for decreased range of motion, pain at rest, pain with movement, of the thoracic area. 13:30 MS/extremity: Negative for acute changes. 13:30 Neuro: Positive for dizziness, weakness. Exam: 13:30 Constitutional: This is a well developed, well nourished patient who is awake, alert, arash and in no acute distress. Head/Face: Normocephalic, atraumatic. Eyes: Pupils equal round and reactive to light, extra-ocular motions intact. Lids and lashes normal. Conjunctiva and sclera are non-icteric and not injected. Cornea within normal limits. Periorbital areas with no swelling, redness, or edema. ENT: Nares patent. No nasal discharge, no septal abnormalities noted. Tympanic membranes are normal and external auditory canals are clear. Oropharynx with no redness, swelling, or masses, exudates, or evidence of obstruction, uvula midline. Mucous membranes moist. Neck: Trachea midline, no thyromegaly or masses palpated, and no cervical lymphadenopathy. Supple, full range of motion without nuchal rigidity, or vertebral point tenderness. No Meningismus. Chest/axilla: Normal chest wall appearance and motion. Nontender with no deformity. No lesions are appreciated. Cardiovascular: Regular rate and rhythm with a normal S1 and S2. No gallops, murmurs, or rubs. Normal PMI, no JVD. No pulse deficits. Respiratory: Lungs have equal breath sounds bilaterally, clear to auscultation and percussion. No rales, rhonchi or wheezes noted. No increased work of breathing, no retractions or nasal flaring. Female : Normal external genitalia. Skin: Warm, dry with normal turgor. Normal color with no rashes, no lesions, and no evidence of cellulitis. MS/ Extremity: Pulses equal, no cyanosis. Neurovascular intact. Full, normal range of motion. Neuro: Awake and alert, GCS 15, oriented to person, place, time, and situation. Cranial nerves II-XII grossly intact. Motor strength 5/5 in all extremities. Sensory grossly intact. Cerebellar exam normal. Normal gait. Psych: Awake, alert, with orientation to person, place and time. Behavior, mood, and affect are within normal limits. 13:30 Abdomen/GI: Inspection: distension, Bowel sounds: normal, Palpation: abdomen is soft and non-tender, Liver: no appreciated palpable abnormalities, Hernia: not appreciated. 13:30 Musculoskeletal/extremity: DVT Exam: No signs of deep vein thrombosis. no pain, no swelling, no tenderness, negative Homans' sign noted on exam, no appreciated bluish discoloration, no erythema, no increased warmth. Vital Signs: 11:34 BP 149 / 69; Pulse 72; Resp 20; Temp 97.7; Pulse Ox 97% on R/A; Weight 66.68 kg; Height aj 5 ft. 3 in. (160.02 cm); 12:00 BP 151 / 82; Pulse 77; Resp 18 S; Pulse Ox 95% on R/A; aa5 12:52 Pulse Ox 91% on R/A; aa5 12:53 BP 143 / 75; Pulse 67; Resp 18 S; Pulse Ox 95% on 2 lpm NC; aa5 13:32 BP 144 / 78; Pulse 72; Resp 20 S; Pulse Ox 96% on 2 lpm NC; aa5 11:34 Body Mass Index 26.04 (66.68 kg, 160.02 cm) aj 12:52 Pt denies SOB, pt states "My oxygen is normally 94 or 95" aa5 [place] Coma Score: 11:34 Eye Response: spontaneous(4). Verbal Response: oriented(5). Motor Response: obeys aj commands(6). Total: 15. 12:00 Eye Response: spontaneous(4). Verbal Response: oriented(5). Motor Response: obeys aa5 commands(6). Total: 15. 12:53 Eye Response: spontaneous(4). Verbal Response: oriented(5). Motor Response: obeys aa5 commands(6). Total: 15. 13:32 Eye Response: spontaneous(4). Verbal Response: oriented(5). Motor Response: obeys aa5 commands(6). Total: 15. Trauma Score (Adult): 11:34 Eye Response: spontaneous(1); Verbal Response: oriented(1); Motor Response: obeys aj commands(2); Systolic BP: > 89 mm Hg(4); Respiratory Rate: 10 to 29 per min(4); [place] Score: 15; Trauma Score: 12 MDM: 11:38 Patient medically screened. [facility] 13:46 Data reviewed: vital signs, nurses notes, lab test result(s), EKG, radiologic studies, [facility] CT scan, plain films. 03/28 11:39 Order name: Basic Metabolic Panel; Complete Time: 13:11 [facility] 03/28 11:39 Order name: CBC with Diff; Complete Time: 13:11 [facility] 03/28 11:39 Order name: LFT's; Complete Time: 13:11 [facility] 03/28 11:39 Order name: Magnesium; Complete Time: 13:11 [facility] 03/28 11:39 Order name: NT PRO-BNP; Complete Time: 13:11 [facility] 03/28 11:39 Order name: PT-INR; Complete Time: 13:11 [facility] 03/28 11:39 Order name: Troponin (emerg Dept Use Only); Complete Time: 13:11 [facility] 03/28 11:39 Order name: Lipase; Complete Time: 13:11 [facility] 03/28 11:39 Order name: Blood Culture Adult (2) [facility] 03/28 11:39 Order name: Procalcitonin; Complete Time: 13:26 [facility] 03/28 11:41 Order name: Urine Culture [facility] 03/28 13:29 Order name: Urine Dipstick--Ancillary (enter results) 03/28 13:47 Order name: Basic Metabolic Panel [facility] 03/28 13:47 Order name: Basic Metabolic Panel [facility] 03/28 11:39 Order name: XRAY Chest (1 view); Complete Time: 13:11 [facility] 03/28 11:41 Order name: CT Traumagram (Head C Spine CAP wo con); Complete Time: 13:11 [facility] 03/28 11:41 Order name: Elbow Left 3 View XRAY; Complete Time: 13:26 [facility] 03/28 13:34 Order name: CT Chest For PE Angio [facility] 03/28 13:47 Order name: Echo with Doppler [facility] 03/28 13:47 Order name: CBC with Automated Diff [facility] 03/28 13:47 Order name: CBC with Automated Diff [facility] 03/28 13:47 Order name: NT PRO-BNP [facility] 03/28 13:47 Order name: NT PRO-BNP [facility] 03/28 13:47 Order name: Troponin I [facility] 03/28 13:47 Order name: Troponin I [facility] 03/28 13:48 Order name: Troponin I [facility] 03/28 13:48 Order name: Chest Single View [facility] 03/28 13:48 Order name: Chest Single View [facility] 03/28 14:07 Order name: CT [facility] 03/28 11:39 Order name: EKG; Complete Time: 11:41 [facility] 03/28 11:39 Order name: Cardiac monitoring; Complete Time: 12:24 [facility] 03/28 11:39 Order name: EKG - Nurse/Tech; Complete Time: 12:24 [facility] 03/28 11:39 Order name: IV Saline Lock; Complete Time: 12:24 [facility] 03/28 11:39 Order name: Labs collected and sent; Complete Time: 12:24 [facility] 03/28 11:39 Order name: O2 Per Protocol; Complete Time: 12:24 [facility] 03/28 11:39 Order name: O2 Sat Monitoring; Complete Time: 12:24 [facility] 03/28 11:41 Order name: Urine Dipstick-Ancillary (obtain specimen); Complete Time: 13:21 [facility] 03/28 13:47 Order name: CONS Physician Consult [facility] 03/28 13:47 Order name: Consistent Carb (ADA) 1800 Eric [facility] 03/28 13:47 Order name: EKG Electrocardiogram [facility] 03/28 13:47 Order name: EKG Electrocardiogram EDMS Administered Medications: 13:00 Drug: NS 0.9% 1000 ml Route: IV; Rate: 125 ml/hr; Site: right antecubital; aa5 15:20 Follow up: IV Status: Infusion continued upon admission aa5 14:17 Drug: SOLU-Medrol 125 mg Route: IVP; Site: right antecubital; aa5 14:25 Follow up: Response: No adverse reaction aa5 14:18 Drug: Lovenox 60 mg Route: Sub-Q; Site: right lower abdomen; aa5 15:00 Follow up: Response: No adverse reaction aa5 14:20 Drug: Xopenex 2.5 mg Route: Inhalation; aa5 14:20 Drug: AtroVENT Aerosol 0.5 mg Route: Inhalation; aa5 14:20 Drug: Rocephin - (cefTRIAXone) 1 grams {Note: administered slow IVP per pharmacy aa5 protocol at this time. .} Route: IVPB; Infused Over: 30 mins; Site: right antecubital; 14:40 Follow up: Response: No adverse reaction aa5 14:37 Not Given (Pt reports taking ASA 325mg this morning ): Aspirin 162 mg PO once aa5 Disposition: 03/28/18 13:37 Hospitalization ordered by Sky Draper for Inpatient Admission. Preliminary diagnosis are Weakness, Dyspnea, Cardiomegaly, Fracture of thoracic vertebra - T11, 20% compression, Hypoxemia. - Bed requested for Telemetry/MedSurg (Inpatient). - Status is Inpatient Admission. aa5 - Condition is Fair. - Problem is new. - Symptoms have improved. UTI on Admission? No Signatures: Dispatcher [employer] EDOH Angelica Castellano Cynthia Iglesias RN RN aj Anderson, Corey, MD MD cha Calderon, Audri, RN RN aa5 Corrections: (The following items were deleted from the chart) 12:25 11:41 Shoulder Right 2 View+[email or web address] ordered. EDOH EDOH 13:46 13:37 Hospitalization Ordered by A Bonny CARVAJAL for Inpatient Admission. Preliminary arash diagnosis is Weakness; Dyspnea; Cardiomegaly; Fracture of thoracic vertebra - T11, 20% compression. Bed requested for Telemetry/MedSurg (Inpatient). Status is Inpatient Admission. Condition is Fair. Problem is new. Symptoms have improved. UTI on Admission? No. arash 14:16 13:46 03/28/2018 13:37 Hospitalization Ordered by A Bonny CARVAJAL for Inpatient Admission. bd Preliminary diagnosis is Weakness; Dyspnea; Cardiomegaly; Fracture of thoracic vertebra - T11, 20% compression; Hypoxemia. Bed requested for Telemetry/MedSurg (Inpatient). Status is Inpatient Admission. Condition is Fair. Problem is new. Symptoms have improved. UTI on Admission? No. arash 15:36 14:16 03/28/2018 13:37 Hospitalization Ordered by A Bonny CARVAJAL for Inpatient Admission. aa5 Preliminary diagnosis is Weakness; Dyspnea; Cardiomegaly; Fracture of thoracic vertebra - T11, 20% compression; Hypoxemia. Bed requested for Telemetry/MedSurg (Inpatient). Status is Inpatient Admission. Condition is Fair. Problem is new. Symptoms have improved. UTI on Admission? No. bd
[2018-03-28] MEDS ORDERED: ONDANSETRON 4 MG/2 ML VIAL IV PRN (13:40)
[2018-03-28] MEDS ORDERED: MORPHINE 2 MG/ML SYR IV PRN (13:40)
[2018-03-28] MEDS ORDERED: IPRATROPIUM BROM 0.5MG/2.5ML NEB PRN (13:40)
[2018-03-28] MEDS ORDERED: ALBUTEROL 2.5 MG/3 ML NEB SOL NEB PRN (13:40)
[2018-03-28] MEDS ORDERED: ACETAMINOPHEN 500 MG TAB PO PRN (13:40)
--- NOTE | 2018-03-28 14:07 | RAD REPORT ---
EXAM DESCRIPTION: CT - Chest For Pe Angio - 03/28/2018 1:59 pm CLINICAL HISTORY: Chest pain. DYSPNEA COMPARISON: Thorax Wo Con dated 12/14/2015; Chest Single View dated 03/28/2018; Head C Spine Cap Wo Co n dated 03/28/2018; CTANGIO CHEST FOR PE dated 11/10/2014; THORAX W CONTRAST dated 01/11/2014; THORAX W CONTRAST dated 07/15/2013 TECHNIQUE: CT angiogram of the pulmonary arteries was performed with MIP. All CT scans are performed using dose optimization technique as appropriate and may include automated exposure control or mA/KV adjustment according to patient size. FINDINGS: No evidence of pulmonary thromboembolism. No acute aortic finding demonstrated. Elevated right hemidiaphragmatic leaflet noted. This appears to be chronic. Mild bilateral ground-gla ss opacity is present suggesting mild interstitial pulmonary edema No significant pericardial or pleural fluid. IMPRESSION: No evidence of pulmonary thromboembolism. Mild interstitial pulmonary edema suspected. Chronic elevation right hemidiaphragm.
[2018-03-28] MEDS ORDERED: IPRATROPIUM BROM 0.5MG/2.5ML ONE (14:28)
[2018-03-28] MEDS ORDERED: METHYLPREDNISOLONE 125 MG INJ ONE (14:28)
[2018-03-28] MEDS ORDERED: CEFTRIAXONE/SWI 1gm 1 GM/10 ML SYR ONE (14:29)
[2018-03-28] MEDS ORDERED: LEVALBUTEROL 1.25 MG/3 ML NEB ONE (14:29)
[2018-03-28] MEDS ORDERED: ENOXAPARIN 60 MG/0.6 ML SQ ONE (14:29)
[2018-03-28] MEDS: CEFTRIAXONE/SWI 1gm 1 GM/10 ML SYR IV SCH (15:00)
[2018-03-28 15:36] LABS: Urine Blood NEGATIVE (NEG); Urine Glucose NEGATIVE (NEG); Urine Protein 1+ (NEG)
[2018-03-28] MEDS: FUROSEMIDE 20 MG/ 2ML VIAL IV SCH (16:29)
[2018-03-28] MEDS ORDERED: METHYLPREDNISOLONE 40 MG INJ IV SCH (17:00)
[2018-03-28] MEDS ORDERED: DIPHENHYDRAMINE 25 MG TAB/CAP PO PRN (18:16)
[2018-03-28] MEDS ORDERED: FAMOTIDINE 20 MG/2 ML VIAL IV SCH (21:00)
[2018-03-28] MEDS: MELATONIN 3 MG TABLET PO SCH (21:07)
[2018-03-28] MEDS: ENOXAPARIN 60 MG/0.6 ML SQ SCH (21:07)
[2018-03-28] MEDS: ATORVASTATIN 10 MG TAB PO SCH (21:08)
[2018-03-28] MEDS: TRAMADOL HCL 50 MG TAB PO SCH (21:08)
[2018-03-28] MEDS: METOPROLOL TAR 50 MG TAB PO SCH (21:09)
[2018-03-28] MEDS: DOCUSATE NA/SENNA CONC 1 TAB PO SCH (21:11)
[2018-03-29] MEDS: PANTOPRAZOLE 40MG TABLET PO SCH (05:39)
[2018-03-29 06:03] LABS: Absolute Monocytes 0.3 K/uL (0.1-1.3); Absolute Neutrophil 4.6 K/uL (1.8-8.0); Basophils % 0.1 % (0-1.3); Hematocrit 36.4 % (36.0-45.0); Lymphocytes % 17.4 % (15.3-44.8); MCH 31.4 pg (27.0-35.0); MCV 90.4 fL (80-100); RBC Red Blood Cell Count 4.03 M/uL (3.86-4.86)
[2018-03-29 06:31] LABS: Potassium 3.5 mmol/L (3.5-5.1)
--- NOTE | 2018-03-29 07:12 | EKG ---
Test Date: 2018-03-28 Test Time: 12:07:17 [employer] Director: BANDAR MEASUREMENT RESULTS: Intervals: Rate: 76 AK: 182 QRSD: 78 QT: 442 QTc: 497 [place]: P: 46 AK: 182 QRS: -59 T: -67 INTERPRETIVE STATEMENTS: Normal sinus rhythm Low voltage QRS Left anterior fascicular block Possible Inferior infarct, age undetermined Anterolateral infarct, age undetermined Abnormal ECG Compared to ECG 05/01/2013 14:42:12 Low QRS voltage now present Left anterior fascicular block now present Sinus bradycardia no longer present Myocardial infarct finding still present Electronically Signed On 03-29-18 07:11:03 OPERATING ROOM NURSE by Narayan Narayanan
--- NOTE | 2018-03-29 08:44 | RAD REPORT ---
EXAM DESCRIPTION: RAD - Chest Single View - 03/29/2018 8:18 am CLINICAL HISTORY: Chest Pain Chest pain. COMPARISON: Chest Single View dated 03/28/2018; CHEST SINGLE VIEW dated 05/01/2013; CHEST PA AND LAT 2 VIEW dated 04/29/2010; CHEST PA AND LAT 2 VIEW dated 11/26/2009; Chest For Pe Angio dated 03/28/2018 FINDINGS: Portable technique limits examination quality. Chronically elevated right hemidiaphragm is noted. The lungs appear grossly clear. The heart is mildl y enlarged in size. No displaced fractures. IMPRESSION: No acute intrathoracic process suspected.
[2018-03-29] MEDS ORDERED: HOME MED 1 EA UNK (Omeprazole [Omeprazole] 20 MG) PO SCH (09:00)
[2018-03-29] MEDS: METOPROLOL TAR 50 MG TAB PO SCH ×2 (09:05→20:49)
[2018-03-29] MEDS: DULOXETINE 30 MG CAP PO SCH (09:05)
[2018-03-29] MEDS: CEFTRIAXONE/SWI 1gm 1 GM/10 ML SYR IV SCH (09:05)
[2018-03-29] MEDS: AMLODIPINE 5 MG TAB PO SCH (09:06)
[2018-03-29] MEDS: CITALOPRAM 10 MG TABLET PO SCH (09:06)
[2018-03-29] MEDS: ASPIRIN 81 MG CHEWABLE TABLET PO SCH (09:06)
[2018-03-29] MEDS: DOCUSATE NA/SENNA CONC 1 TAB PO SCH ×2 (09:06→20:49)
[2018-03-29] MEDS: LOSARTAN/HCTZ 50-12.5 PO SCH (09:06)
[2018-03-29] MEDS: TRAMADOL HCL 50 MG TAB PO SCH ×3 (09:07→20:50)
[2018-03-29] MEDS: ENOXAPARIN 60 MG/0.6 ML SQ SCH (09:08)
--- NOTE | 2018-03-29 11:34 | EKG ---
Test Date: 2018-03-29 Test Time: 10:19:51 Heat Regulator: [place] MEASUREMENT RESULTS: Intervals: Rate: 76 MA: 178 QRSD: 92 QT: 440 QTc: 495 Palm: P: 58 MA: 178 QRS: -52 T: -53 INTERPRETIVE STATEMENTS: Normal sinus rhythm Left axis deviation Inferior infarct, age undetermined Anterolateral infarct, age undetermined Abnormal ECG Compared to ECG 03/28/2018 12:07:17 Left-axis deviation now present Left anterior fascicular block no longer present Myocardial infarct finding still present Electronically Signed On 03-29-18 11:34:03 TUMBLER OPERATOR by Fabrice Ledezma
--- NOTE | 2018-03-29 11:37 | ECHO ---
HEIGHT: 5 ft 3 in WEIGHT: 147 lb 0 oz DATE OF STUDY: 03/29/[address]: David Luu MD 2-DIMENSIONAL: YES M.MODE: YES DOPPLER: YES COLOR FLOW: YES TDS: YES PORTABLE: NO DEFINITY: NO BUBBLE STUDY: NO DIAGNOSIS: DYSPNEA CARDIAC HISTORY: CATHERIZATION: NO SURGERY: NO PROSTHETIC VALVE: NO PACEMAKER: NO MEASUREMENTS (cm) DIASTOLIC (NORMALS) SYSTOLIC (NORMALS) IVSd 1.2 (0.6-1.2) LA Diam 3.5 (1.9-4.0) LVEF 59% LVIDd 2.9 (3.5-5.7) LVIDs 2.0 (2.0-3.5) %FS 30% LVPWd 1.3 (0.6-1.2) Ao Diam 2.7 (2.0-3.7) 2 DIMENSIONAL ASSESSMENT: RIGHT ATRIUM: NORMAL LEFT ATRIUM: NORMAL RIGHT VENTRICLE: NORMAL LEFT VENTRICLE: LEFT VENTRICULAR HYPERTOPHY TRICUSPID VALVE: NORMAL MITRAL VALVE: NORMAL PULMONIC VALVE: NORMAL AORTIC VALVE: NORMAL PERICARDIAL EFFUSION: NONE AORTIC ROOT: NORMLA LEFT VENTRICULAR WALL MOTION: ANTERIOR HYPOKINESIS. DOPPLER/COLOR FLOW: MILD TRICUPSID REGURGITATION. NORMAL RIGHT VENTRICULAR SYSTOLIC PRESSURE. COMMENTS: NORMAL LEFT VENTRICULAR EJECTION FRACTION WITH WALL MOTION ABNORMALITY. LEFT VENTRICULAR HYPERTOPHY. MILD TRICUPSID REGURGITATION. TECHNICALLY DIFFICULT STUDY. TECHNOLOGIST: Steffanie BRISCOE
[2018-03-29] MEDS: CALCITONIN NASAL SPRAY 200 IU/DOSE NAS SCH (11:45)
--- NOTE | 2018-03-29 12:56 | CON ---
An 87-year-old woman. Reason For Consult: Elevated troponin and elevated B-natriuretic peptide. History Of Present Illness: Ms. Vargas came to our hospital because she fell. She injured her elb ow. She did not think very much out of it and x-rays have been fairly unremarkable. There is no ramesh gical procedure planned. The main thing we see in all of her skeletal x-rays is diffuse severe osteo porosis with a compression fracture of one of her thoracic vertebrae. When she fell, there was no lo ss of consciousness. No chest pain or shortness of breath. Chest x-ray reveals an elevated hemidiap hragm on the right, but no evidence of cardiomegaly or congestive heart failure. It is an AP project ion of the chest. A comment is made, there may be slight enlargement of the cardiac silhouette. I w ould think that would be a questionable predictive value given the fact that it is an AP projection a nd there is elevated hemidiaphragm. An echocardiogram will be done later today and we can use that t o see if she actually has heart failure or cardiomegaly. The patient denies having chest pain, short ness of breath, palpitation, syncope, presyncope, paroxysmal nocturnal dyspnea, orthopnea. She has a lot of skeletal pain. If she sits very still, she does not have much pains. Therefore, she sits st ill a lot. She uses no tobacco, rare alcohol. Medications: Outpatient medications have been melatonin, tramadol, Benadryl, omeprazole, metoprolol, Livalo, Celexa, amlodipine, sennosides with docusate sodium, losartan, hydrochlorothiazide, duloxeti ne, and aspirin. Allergies: NO ALLERGIES ARE KNOWN. Physical Examination: General: She is 87 in appearance, 5 feet 3 inches, 147 pounds. She was in some distress, but when w e laid her bed into about a 45-degree angle, she then became comfortable. Lungs: Clear. Heart: Regular rate and rhythm. No significant murmur. Abdomen: Soft. Extremities: Palpable distal pulses. No cyanosis, clubbing, or edema. Imaging: Her electrocardiogram right after coming to the hospital showed sinus rhythm, low voltage l eftward axis, questionable inferior anterior infarct. Laboratory Data: Reveals troponin levels they are all about 0.06, 0.08, 0.05. N-terminal proBNP lev els are very elevated at 9818 and 7318. Impression: My impression is that Ms. Nunez probably is not what I would consider an acute coronar y syndrome patient or heart failure patient. Lab tests may be due to a number of things so echocardi ogram will tell us a lot about her cardiovascular status. Blood tests have been ordered in a setting where there were not cardiac symptoms and now they are difficult to explain, so we will try very mickey d to learn what we can about her heart. SANTO/VIJAY Voice ID: [id number] Report ID: [id number]
[2018-03-29] MEDS: FUROSEMIDE 20 MG/ 2ML VIAL IV SCH (15:08)
--- NOTE | 2018-03-29 16:01 | RAD REPORT ---
EXAM DESCRIPTION: MRI - Thoracic Spine Wo Contr - 03/29/2018 3:34 pm CLINICAL HISTORY: Recent fall, back pain, abnormal CT imaging COMPARISON: CT study March 28 TECHNIQUE: Sagittal T1 weighted, T2 weighted and T2 STIR weighted sequences were obtained. Axial T2 weighted images were obtained through each disc level. FINDINGS: T11 body shows approximately 20% compression along the superior endplate. Posterior wall h eight is preserved; however, there is a mild protrusion of the superior aspect of the posterior wall into the central canal. There is no contact of the cord. Canal is reduced to 9 mm. There is hypointen se T1 and hyperintense T2 IR signal along the superior aspect of the involved vertebrae. This would i ndicate acute or subacute age to the fracture. No pathologic component seen. Pedicles and posterior e lements of T11 are intact. No associated T10-11 or T11-12 disc herniation. The remaining thoracic vertebrae are normal in height, alignment and marrow signal characteristics. M ild disc bulge changes are present T4-T6. No significant encroachment into the canal. No cord signal abnormality, compression or expansile change. IMPRESSION: Approximately 20% T11 acute to subacute compression fracture. No pathologic component urias spected. T11 posterior wall height is preserved though there is encroachment into the central canal along the superior aspect of the posterior wall. Midline canal diameter is 9 mm with no contact of the cord. No disc herniation in the associated adjacent disc levels.
--- NOTE | 2018-03-29 16:06 | RAD REPORT ---
EXAM DESCRIPTION: MRI - Lumbar Spine Wo Con - 03/29/2018 3:34 pm CLINICAL HISTORY: Fall, back pain, abnormal CT study COMPARISON: CT examination March 28, MRI study August 2010 TECHNIQUE: Sagittal T1-weighted, T2-weighted and T2-STIR weighted sequences were obtained. Axial T1 -weighted and heavily T2-weighted sequenceswere obtained through the lumbar disc levels. FINDINGS: Lumbar bodies are normal in height. AP alignment is normal. There is a right convex degene rative scoliotic curvature. No lumbar compression fracture changes. T11 findings are detailed in sepa rate MRI report. No suspicious marrow signal. No paraspinal masses. Conus is normal with no clumping or thickening of the cauda equina. T12-L1 level: Disc is desiccated with a bulging of disc material across the central canal and into ea ch exit foramen. No central spinal stenosis or significant foraminal encroachment. Findings are minim ally progressive from 2011. L1-2 level: Prominent circumferential bulging of disc material with desiccation. Findings are not sub stantially different from 2011. No central spinal stenosis. Left foraminal encroachment is present du e to the concavity along the left side of the spine. L2-3 level: Disc is thinned and desiccated. No central spinal stenosis. Circumferential disc bulge is present. Moderate left foraminal stenosis present from concave curvature, spurring and disc bulge. N o significant right foramen stenosis. L3-4 level: Disc is desiccated without loss in disc height. Circumferential bulging of disc material seen. Facet degenerative changes are mild. Bilateral foraminal stenosis present from disc bulge, liga mentous thickening and facet degenerative change. No central spinal stenosis. L4-5 level: Disc is thinned and desiccated. Height loss has progressed from the comparison. Circumfer ential disc bulge is present causing moderate bilateral foraminal stenosis. No central spinal stenosi s. L5-S1 level: Disc is desiccated. No herniation or significant disc bulge. Facet degenerative changes are prominent with fluid in the facet joints. No canal or significant foramen stenosis. IMPRESSION: Lumbar spine degenerative changes are present from T12-S1. Findings are stable or minima lly progressive from 2011. No central canal herniation or central spinal stenosis. Patient has multilevel moderate severity fora roxanne stenosis detailed at each level. No acute lumbar vertebral body finding. T11 findings are detailed in separate MR thoracic spine repor t.
[2018-03-29] MEDS: ATORVASTATIN 10 MG TAB PO SCH (20:50)
[2018-03-29] MEDS: MELATONIN 3 MG TABLET PO SCH (21:00)
--- NOTE | 2018-03-30 05:23 | HP ---
Date of Admission: 03/29/2018 Chief Complaint: Feeling weak, short of breath, and fall. History Of Present Illness: An 87-year-old female patient, who lives at home, started to have generalized weakness, feeling short of breath, and she fell down over the weekend and started complaining of back pain. Denies any chest pain. No fever. No cough. No expectoration. She was brought in yesterday to emergency room. Further workup was done in the ER and she was admitted to the hospital with abnormal cardiac enzymes and compression fracture of thoracic spine. Medications: List reviewed. Allergies: NO KNOWN ALLERGIES. Review of Systems: Musculoskeletal: As mentioned above. Constitutional: As mentioned above. All other systems reviewed and negative. Past Medical History: Significant for hypertension; mixed hyperlipidemia; osteoarthritis at multiple sites; chronic kidney disease, stage III; osteoporosis; diverticulosis; gastroesophageal reflux disease; and depression. Past Surgical History: Tonsillectomy. Family History: Prostate cancer, hypertension. Social History: Negative for smoking or alcohol use. Physical Examination: Vital Signs: This morning; temperature 97.3, pulse 88, respiratory rate 18, blood pressure 134/74, oxygen saturation 95%. Height 5 feet 3 inches, weight 147 pounds. General: Awake, alert, oriented, not in distress. HEENT: Head atraumatic, normocephalic. Conjunctivae nonerythematous. Sclerae white. Mouth, no thrush or edema noted. Ears/Nose, no mass, lesion, discharge noted. Neck: Supple. No JVD, lymph nodes, bruit, thyromegaly noted. Lungs: Bilateral good equal air entry. Clear to auscultation. No rhonchi. No rales. Heart: Normal heart sounds, no murmur or gallop. Abdomen: Soft, bowel sounds normal. No guarding, rigidity, tenderness, mass, hepatosplenomegaly, distention, or bruit noted. Extremities: No leg edema. No calf tenderness. Skin: No rash, ulcer, cellulitis. Lymphatics: No lymph node enlargement in neck, supraclavicular, infraclavicular region. Neuro: No focal neurological deficit. Chest: Unremarkable. External Genitalia: Deferred. Rectal: Deferred. Laboratory Data: Yesterday, white count 10, hemoglobin 12.9, platelets 299. This morning, white count 6, hemoglobin 12.7, platelets 295. Yesterday, sodium 139, potassium 3.6, chloride 104, bicarb 26, BUN 18, creatinine 1, glucose 108. Liver function tests unremarkable. Troponin 0.08 on the first set with proBNP 9818, second troponin 0.06, third troponin 0.05. This morning, ProBNP 7318. Sodium 140, potassium 3.5, chloride 102, bicarb 26, BUN 29, creatinine 1.30, glucose 148. Procalcitonin less than 0.05. Urinalysis, 1+ protein, otherwise negative. CAT scan of the chest per PE protocol, no evidence of pulmonary embolism, mild interstitial pulmonary edema suspected chronic elevation of the right hemidiaphragm. CAT scan of the head and C-spine, no acute changes noted. No fracture. No acute intracranial changes. CAT scan of the chest and abdomen, no acute changes except acute T11 compression fracture. EKG, normal sinus rhythm, low-voltage QRS, left anterior fascicular block. Chest x-ray, no acute changes. Left elbow x-ray was reported an osteopenia and according to Radiology report, laceration present in the olecranon, soft tissue , no fracture, but upon physical exam, the patient does not have any laceration. Impression: 1. Compression fracture, acute, T11. 2. Abnormal cardiac enzymes. 3. Generalized weakness. 4. Dyspnea. 5. Hypertension. 6. Mixed hyperlipidemia. 7. Osteoporosis. 8. Osteoarthritis, multiple sites. 9. Chronic kidney disease, stage III. 10. Diverticulosis. 11. Gastroesophageal reflux disease. Plan: Admit the patient to hospital for further evaluation and management of this problem. The patient is appropriate for inpatient and is expected to spend 2 midnights in the hospital. We will go ahead and continue home medications per order. We will consult Cardiology. Get echo with Doppler today. MRI of the thoracic and lumbar spine was ordered today. Pain medications will be given per order. Lovenox will be continued, which was started in the emergency room yesterday. IV steroid and IV Pepcid as well as IV antibiotic. Ceftriaxone was started in the emergency room. I have discontinued those as there is no need to continue any of those medications. We will start the patient on calcitonin nasal spray. This may actually provide her relief with her back pain and if her back pain does not improve with conservative treatment, then elective outpatient referral to neurosurgeon will be recommended for consideration of kyphoplasty type of procedure. RAMONA/VIJAY Voice ID: [id number] MTDD
[2018-03-30] MEDS: PANTOPRAZOLE 40MG TABLET PO SCH (05:35)
[2018-03-30] MEDS: TRAMADOL HCL 50 MG TAB PO SCH ×3 (08:50→20:51)
[2018-03-30] MEDS ORDERED: ENOXAPARIN 60 MG/0.6 ML SQ SCH (09:00)
[2018-03-30] MEDS: AMLODIPINE 5 MG TAB PO SCH (10:16)
[2018-03-30] MEDS: METOPROLOL TAR 50 MG TAB PO SCH ×2 (10:16→20:46)
[2018-03-30] MEDS: CEFTRIAXONE/SWI 1gm 1 GM/10 ML SYR IV SCH (10:16)
[2018-03-30] MEDS: ASPIRIN 81 MG CHEWABLE TABLET PO SCH (10:17)
[2018-03-30] MEDS: DOCUSATE NA/SENNA CONC 1 TAB PO SCH ×2 (10:17→20:46)
[2018-03-30] MEDS: CITALOPRAM 10 MG TABLET PO SCH (10:17)
[2018-03-30] MEDS: CALCITONIN NASAL SPRAY 200 IU/DOSE NAS SCH (10:18)
[2018-03-30] MEDS: DULOXETINE 30 MG CAP PO SCH (10:20)
[2018-03-30] MEDS: LOSARTAN/HCTZ 50-12.5 PO SCH (10:36)
[2018-03-30] MEDS: FUROSEMIDE 20 MG/ 2ML VIAL IV SCH (14:00)
[2018-03-30] MEDS: ATORVASTATIN 10 MG TAB PO SCH (20:46)
[2018-03-30] MEDS: MELATONIN 3 MG TABLET PO SCH (20:47)
--- NOTE | 2018-03-31 01:37 | PN ---
Date of Progress Note: 03/30/2018 Subjective: The patient was seen this morning for followup. No new complaints or problems reported by the patient except her back pain which is better today than yesterday. No nausea or vomiting. Objective: Vital Signs: Reviewed. HEENT: Examination unremarkable. Lungs: Clear to auscultation. Heart: Sounds normal. Abdomen: Soft. Bowel sounds normal. No guarding, rigidity, tenderness, or distention. Extremities: No leg edema. Laboratory Data: MRI of thoracic and lumbar spine shows acute compression fracture of T11 spine. Ec hocardiogram shows normal ejection fraction. Impression: 1.Acute compression fracture, T11 spine. 2.Abnormal cardiac enzymes. 3.Hypertension. 4.Hyperlipidemia. 5.Osteoarthritis, multiple sites. 6.Osteoporosis, senile. Plan: We will go ahead and continue current medications. At home, the patient takes Actonel once a week for her osteoporosis. We will continue physical therapy. Rehab consult is pending. Continue c alcitonin nasal spray and recommend medical management. Continue Lovenox per order. Discontinue ceftriaxone as there is no evidence of any infection, and I will see her tomorrow for followup. RAMONA/MODL Voice ID: [id number] Report ID: [id number]
[2018-03-31] MEDS: PANTOPRAZOLE 40MG TABLET PO SCH (06:02)
[2018-03-31] MEDS ORDERED: MAGNESIUM HYDROXIDE 8% 30 ML PO ONE (07:32)
[2018-03-31 07:51] LABS: Absolute Lymphocytes (CBC) 2.2 K/uL (0.7-4.9); Absolute Neutrophil 4.7 K/uL (1.8-8.0); Basophils % 0.9 % (0-1.3); Eosinophils % 2.6 % (0-4.4); Hematocrit 36.6 % (36.0-45.0); Lymphocytes % 27.3 % (15.3-44.8); MCH 31.6 pg (27.0-35.0); MCV 91.2 fL (80-100); Monocytes % 11.6 % (3.3-12.3); RBC Red Blood Cell Count 4.01 M/uL (3.86-4.86)
[2018-03-31 08:07] LABS: Potassium 3.5 mmol/L (3.5-5.1)
[2018-03-31] MEDS: CALCITONIN NASAL SPRAY 200 IU/DOSE NAS SCH (09:00)
[2018-03-31] MEDS: LOSARTAN/HCTZ 50-12.5 PO SCH (09:49)
[2018-03-31] MEDS: ASPIRIN 81 MG CHEWABLE TABLET PO SCH (09:50)
[2018-03-31] MEDS: ENOXAPARIN 40 MG/0.4 ML SQ SCH (09:50)
[2018-03-31] MEDS: METOPROLOL TAR 50 MG TAB PO SCH ×2 (09:51→20:45)
[2018-03-31] MEDS: DULOXETINE 30 MG CAP PO SCH (09:51)
[2018-03-31] MEDS: CITALOPRAM 10 MG TABLET PO SCH (09:51)
[2018-03-31] MEDS: TRAMADOL HCL 50 MG TAB PO SCH ×3 (09:51→20:45)
[2018-03-31] MEDS: AMLODIPINE 5 MG TAB PO SCH (09:52)
[2018-03-31] MEDS: DOCUSATE NA/SENNA CONC 1 TAB PO SCH ×2 (09:52→20:44)
--- NOTE | 2018-03-31 13:46 | PN ---
Date of Progress Note: 03/30/2018 Dr. Ledezma had seen the patient on 03/29/2018 because of T11 compression, elevated troponin, and weak ness and falling. Echocardiogram that was done yesterday showed ejection fraction of 59% with some v celina mild anterior hypokinesis. I would consider continue her present regimen and we will see her in the office whenever she goes home in about 2 weeks. JEMIMA/VIJAY Voice ID: [id number] Report ID: [id number]
[2018-03-31] MEDS: MELATONIN 3 MG TABLET PO SCH (20:45)
[2018-03-31] MEDS: ATORVASTATIN 10 MG TAB PO SCH (20:45)
--- NOTE | 2018-03-31 23:07 | PN ---
Date of Progress Note: 03/31/2018 Subjective: The patient was seen this morning for followup. No new complaints or problems reported by the patient, lying in bed, not in distress. Denies any new complaints except reports not having a ny bowel movement, but reports that her back pain is better and the patient also reported yesterday s he ambulated with physical therapy. Denies any chest pain, shortness of breath. Objective: Vital Signs: Reviewed. HEENT: Unremarkable. Lungs: Clear to auscultation. No rhonchi or rales. Heart: Sounds normal. Abdomen: Soft. Bowel sounds normal. No guarding, rigidity, tenderness, or distention. Extremities: No leg edema. Laboratory Data: White count 8.2, hemoglobin 12.7, and platelets 299. Sodium 138, potassium 3.5, ch loride 102, bicarb 28, BUN 46, and creatinine 1.30. Impression: 1.Acute compression fracture, T11 spine. 2.Hypokalemia. 3.Hypertension. 4.Hyperlipidemia. 5.Osteoarthritis, multiple sites. 6.Osteoporosis, senile. Plan: We will go ahead and reduce dose of Lovenox to prophylactic dose per order. Discontinue IV La six. Physical therapy to continue to work with the patient. Continue current pain medication. Cont inue calcitonin nasal spray and rehab consultation was done. Decision from rehab is pending. We jeramie l contact the patient's daughter per the patient's and her daughter's request this evening to communicate information and give her updates. RAMONA/MODL Voice ID: [id number] Report ID: [id number]
[2018-04-01] MEDS: PANTOPRAZOLE 40MG TABLET PO SCH (05:58)
[2018-04-01 07:57] LABS: Magnesium 2.4 mg/dL (1.8-2.4); Potassium 3.8 mmol/L (3.5-5.1)
[2018-04-01] MEDS: CALCITONIN NASAL SPRAY 200 IU/DOSE NAS SCH (09:00)
[2018-04-01] MEDS: ENOXAPARIN 40 MG/0.4 ML SQ SCH (09:22)
[2018-04-01] MEDS: CITALOPRAM 10 MG TABLET PO SCH (09:23)
[2018-04-01] MEDS: METOPROLOL TAR 50 MG TAB PO SCH ×2 (09:23→21:33)
[2018-04-01] MEDS: DULOXETINE 30 MG CAP PO SCH (09:23)
[2018-04-01] MEDS: AMLODIPINE 5 MG TAB PO SCH (09:24)
[2018-04-01] MEDS: TRAMADOL HCL 50 MG TAB PO SCH ×3 (09:24→21:34)
[2018-04-01] MEDS: LOSARTAN/HCTZ 50-12.5 PO SCH (09:25)
[2018-04-01] MEDS: DOCUSATE NA/SENNA CONC 1 TAB PO SCH ×2 (09:25→21:34)
[2018-04-01] MEDS: ASPIRIN 81 MG CHEWABLE TABLET PO SCH (09:25)
[2018-04-01] MEDS: ATORVASTATIN 10 MG TAB PO SCH (21:34)
[2018-04-01] MEDS: MELATONIN 3 MG TABLET PO SCH (21:35)
--- NOTE | 2018-04-02 00:13 | PN ---
Date of Progress Note: 04/01/2018 History Of Present Illness: The patient was seen this morning for followup. She appears weaker than her normal self, but denies any specific complaints. Back pain is reported to be better than before and says that she does ambulate with physical therapy. Had a bowel movement yesterday. Denies any abdominal pain, nausea, vomiting. No chest pain, no shortness of breath. Physical Examination: Vital Signs: Reviewed. HEENT: Unremarkable. Lungs: Clear to auscultation. Heart: Heart sounds normal. Abdomen: Soft. Bowel sounds normal. No guarding, rigidity, tenderness, or distention. Extremities: No leg edema. Laboratory Data: Sodium 136, potassium 3.8, BUN 43, creatinine 1.2. Impression: 1.Acute compression fracture, T11 spine. 2.Osteoporosis. 3.Hypertension. 4.Hyperlipidemia. 5.Osteoarthritis, multiple sites. Plan: We will continue current medication. The patient's Lasix was discontinued yesterday and her e lectrolytes are stable. Renal function is stable between yesterday and today. No need for any furth er diuretic therapy. Continue ambulation and the patient's insurance company has denied inpatient re hab benefit, so we will communicate with family regarding discharge planning. The patient wants to g o home with home health and home physical therapy, but I have informed her that she will not be able to stay at home by herself and somebody will need to stay with her 24 hours, so I will have to communicate with family to see if that option is possible or she will need to go to long term f acility for short-term rehab stay. RAMONA/MODL Voice ID: [id number] Report ID: [id number]
[2018-04-02] MEDS: PANTOPRAZOLE 40MG TABLET PO SCH (05:41)
[2018-04-02] MEDS: CITALOPRAM 10 MG TABLET PO SCH (09:24)
[2018-04-02] MEDS: TRAMADOL HCL 50 MG TAB PO SCH ×3 (09:24→20:12)
[2018-04-02] MEDS: LOSARTAN/HCTZ 50-12.5 PO SCH (09:24)
[2018-04-02] MEDS: ASPIRIN 81 MG CHEWABLE TABLET PO SCH (09:24)
[2018-04-02] MEDS: ENOXAPARIN 40 MG/0.4 ML SQ SCH (09:25)
[2018-04-02] MEDS: CALCITONIN NASAL SPRAY 200 IU/DOSE NAS SCH (09:25)
[2018-04-02] MEDS: AMLODIPINE 5 MG TAB PO SCH (09:25)
[2018-04-02] MEDS: METOPROLOL TAR 50 MG TAB PO SCH ×2 (09:25→20:12)
[2018-04-02] MEDS: DOCUSATE NA/SENNA CONC 1 TAB PO SCH ×2 (09:25→20:11)
[2018-04-02] MEDS: DULOXETINE 30 MG CAP PO SCH (09:25)
[2018-04-02] MEDS: ATORVASTATIN 10 MG TAB PO SCH (20:12)
[2018-04-02] MEDS: MELATONIN 3 MG TABLET PO SCH (20:13)
[2018-04-03] MEDS: PANTOPRAZOLE 40MG TABLET PO SCH (05:25)
[2018-04-03] MEDS ORDERED: AMLODIPINE 5 MG TAB PO SCH (08:27)
[2018-04-03] MEDS ORDERED: LOSARTAN/HCTZ 50-12.5 PO SCH (08:27)
[2018-04-03] MEDS: TRAMADOL HCL 50 MG TAB PO SCH ×2 (08:50→14:00)
[2018-04-03 08:51] LABS: Absolute Lymphocytes (CBC) 2.2 K/uL (0.7-4.9); Absolute Monocytes 0.6 K/uL (0.1-1.3); Absolute Neutrophil 6.1 K/uL (1.8-8.0); Basophils % 0.8 % (0-1.3); Eosinophils % 2.2 % (0-4.4); Hematocrit 35.9 % (36.0-45.0); MCH 30.8 pg (27.0-35.0); MCV 90.8 fL (80-100); Monocytes % 6.1 % (3.3-12.3); RBC Red Blood Cell Count 3.95 M/uL (3.86-4.86)
[2018-04-03] MEDS: METOPROLOL TAR 50 MG TAB PO SCH (08:51)
[2018-04-03] MEDS: DOCUSATE NA/SENNA CONC 1 TAB PO SCH (08:51)
[2018-04-03] MEDS: ENOXAPARIN 40 MG/0.4 ML SQ SCH (08:52)
[2018-04-03] MEDS: DULOXETINE 30 MG CAP PO SCH (08:52)
[2018-04-03] MEDS: ASPIRIN 81 MG CHEWABLE TABLET PO SCH (08:52)
[2018-04-03] MEDS: CITALOPRAM 10 MG TABLET PO SCH (08:52)
[2018-04-03] MEDS: CALCITONIN NASAL SPRAY 200 IU/DOSE NAS SCH (08:52)
[2018-04-03 08:59] LABS: Magnesium 1.9 mg/dL (1.8-2.4)
[2018-04-03] MEDS ORDERED: MAGNESIUM HYDROXIDE 8% 30 ML PO ONE (10:00)
--- NOTE | 2018-04-03 14:49 | PN ---
Date of Progress Note: 04/02/2018 Subjective: The patient was seen this morning for followup. She appears little weaker than normal, but denies any specific complaints. Has some back pain and reports that she ambulates with physical therapy. Objective: Vital Signs: Reviewed. HEENT: Unremarkable. Lungs: Clear to auscultation. Heart: Sounds normal. Abdomen: Soft. Bowel sounds normal. No guarding, rigidity, tenderness, or distention. Extremities: No leg edema. Impression: 1.Compression fracture, T11 spine, acute. 2.Hypertension. 3.Osteoporosis. 4.Osteoarthritis, multiple sites. 5.Abnormal cardiac enzymes. Plan: The patient's echocardiogram was normal. Practical Nurse Clinical Coordinator has not suggested any further intervent ion. We will continue current antihypertensive medication. Continue calcitonin nasal spray and pain medication per order. Physical therapy to continue to work with the patient. The patient's insuran ce has denied inpatient rehab benefit and patient as well as her daughter they both would like to go home with outpatient physical therapy and they do not want to go to long term facility, so our plan is to possibly discharge her to go home tomorrow. RAMONA/MODL Voice ID: [id number] Report ID: [id number]
--- NOTE | 2018-04-04 03:51 | DS ---
Date of Discharge: 04/03/2018 Disposition: Discharged to go home. Physical Examination: HEENT: Unremarkable. Lungs: Clear to auscultation. Heart: Sounds normal. Abdomen: Soft. Bowel sounds normal. No guarding, rigidity, tenderness, distention. Extremities: No leg edema. Laboratory Data: Initial white count on 03/28/2018 was 10, hemoglobin 12.9, platelets 299. Last white count today 9.1, hemoglobin 12.2, platelets 320. Last chemistry today is sodium 135, potassium 4, chloride 100, bicarb 27, BUN 33 , creatinine 1.20. Glucose 199, this was after she ate breakfast. Magnesium level 1.9. Her troponin level was 0.05 and 0.06 as well as 0.07 on 3 different cardiac enzymes. Hospital Course: This is an 87-year-old female patient who was admitted to the hospital with generalized weakness, fall and injury, and back pain. Please see dictated H and P for more information. The patient came into emergency room. After she was evaluated in the ER, she was admitted to the hospital. Initial workup included routine blood work, CAT scan, x-ray. Her radiology testing revealed presence of compression fracture of T11 spine. This was acute compression fracture. Day after admission, we did MRI of thoracic and lumbar spine without contrast and it showed this evidence of acute compression fracture of T11 spine without any evidence of spinal cord compression. Pain medication was ordered for her back pain and I also started her on calcitonin nasal spray for her back pain. Overall, her back pain has improved. Physical Therapy was consulted and the patient has started to ambulate well with the back pain. She does require assistance as well as use of walker and assistance with one person to get in and out of bed to go to the bathroom, but she is making improvement overall. Her back pain has improved. Her appetite is fair. Initially, chest x-ray had shown some fluid buildup in her lungs. IV Lasix 20 mg daily was given and after 2 or 3 days we discontinued that. Her BUN had gone up to like 44 range but after we discontinued BUN is improving as noted on today's blood work. Cardiology consultation was obtained because of abnormal cardiac enzymes, echocardiogram was done, which revealed normal ejection fraction and mail handlers supervisor has not recommended any further cardiac intervention. Overall, her condition is stable. Initially, we wanted her to go to inpatient rehab and rehab floor was consulted, but the patient's insurance company, they denied any benefit for inpatient rehab and we discussed with the patient regarding other options, one option being going to [facility] for [facility] stay and physical therapy or go home and continue her physical therapy on an outpatient basis. The patient and patient's daughter, they both elected to go home with continuation of outpatient physical therapy. All these details were discussed with the patient's daughter on phone today. A copy of MRI film was given to patient to take it home and the patient will follow up with Dr. Harrell on an outpatient basis for this compression fracture of spine and daughter will schedule that appointment and I will see her also for followup on outpatient basis. I have informed the patient's daughter to make sure to use calcitonin as prescribed and alternate nostril on a daily basis as well as to check blood pressure before giving her antihypertensive medication and if systolic blood pressure is less than 130, then to hold certain medication for that particular day and all these instructions will be provided in discharge instruction. All these instructions were explained to patient's daughter on the phone as well. Final Diagnoses: 1. Acute compression fracture, closed, T11 spine. 2. Osteoporosis. 3. Osteoarthritis, multiple sites. 4. Hypertension. 5. Hyperlipidemia. 6. Abnormal cardiac enzymes. 7. Volume overload. 8. Generalized weakness. 9. Diverticulosis. 10. Gastroesophageal reflux disease. RAMONA/MODL Voice ID: [id number] Report ID: [id number] LEXI
== END 2018-04-03 14:30 | disposition home or self-care (01) | DRG 552 ==
LOC: ER 11:27 → ERHOLD 13:38 → 2ND 15:12
PROVIDERS: ADMIT Internal Medicine; ATTEND Internal Medicine
DX: S22.081A Stable burst fracture of T11-T12 vertebra, initial encounter for closed fracture (principal); S50.02XA Contusion of left elbow, initial encounter; W01.0XXA Fall on same level from slipping, tripping and stumbling without subsequent striking against object, initial encounter; Y93.89 Activity, other specified; Y92.019 Unspecified place in single-family (private) house as the place of occurrence of the external cause; E78.2 Mixed hyperlipidemia; M15.9 Polyosteoarthritis, unspecified; K21.9 Gastro-esophageal reflux disease without esophagitis; I12.9 Hypertensive chronic kidney disease with stage 1 through stage 4 chronic kidney disease, or unspecified chronic kidney disease; N18.3 Chronic kidney disease, stage 3 (moderate); M81.0 Age-related osteoporosis without current pathological fracture; K57.90 Diverticulosis of intestine, part unspecified, without perforation or abscess without bleeding; R74.8 Abnormal levels of other serum enzymes; E87.6 Hypokalemia; E87.70 Fluid overload, unspecified
CPT/HCPCS: 36415; 70450; 71045; 71250; 71275; 72125; 72146; 72148; 80048; 80076; 81003; 83690; 83735; 83880; 84145; 84484; 85025; 85610; 87040; 87086; 87088; 93005; 93306; 96361; 96372; 96374; 96375; 97116; 97163; 97530; 99285; J0696; J1650; J1940; J2270; J2405; J2920; J2930; J7030; Q9967

== ENCOUNTER 2018-05-31 12:24 | Emergency (ER) | payer OTHER ==
[2018-05-31] MEDS ORDERED: NA CHLORIDE 0.9% 1,000 ML ONE (13:08)
[2018-05-31] MEDS ORDERED: METOCLOPRAMIDE 10 MG/2mL INJ ONE (13:08)
--- NOTE | 2018-05-31 13:16 | RAD REPORT ---
EXAM DESCRIPTION: CT - Ct Stroke Brain Wo Cont - 05/31/2018 1:04 pm CLINICAL HISTORY: Headache, speech difficulty CLINICAL HISTORY: CT head March 28, 2018 TECHNIQUE: Axial 5 millimeter thick images of the head were obtained without IV contrast. All CT scans are performed using dose optimization technique as appropriate and may include automated exposure control or mA/KV adjustment according to patient size. FINDINGS: No intracranial hemorrhage, mass, or cerebral edema. No acute cortical based infarction. N o cortical edema or sulcal effacement. Moderate severity atrophy and chronic ischemic changes are pre sent. Ventricles are in proportion to volume loss. No extra-axial fluid collections. Medrano matter-whi te matter differentiation is preserved. Intracranial findings are not significantly different from comparison. Visualized portions of the mastoid air cells, paranasal sinuses, and orbits are unremarkable. Findings telephoned to the referring clinician 1312 hours. IMPRESSION: No hemorrhage, mass or acute cortical based infarction. Moderate severity atrophy and chronic ischemic change not significantly different from March 2018.
[2018-05-31 13:19] LABS: Absolute Monocytes 0.9 K/uL (0.1-1.3); Absolute Neutrophil 4.5 K/uL (1.8-8.0); Basophils % 0.8 % (0-1.3); Eosinophils % 0.8 % (0-4.4); Hematocrit 38.6 % (36.0-45.0); Lymphocytes % 27.4 % (15.3-44.8); MPV 7.2 fL (7.6-11.3); Monocytes % 11.4 % (3.3-12.3); RBC Red Blood Cell Count 4.19 M/uL (3.86-4.86)
[2018-05-31 13:43] LABS: BUN Blood Urea Nitrogen 17 mg/dL (7-18); Bicarbonate 30 mmol/L (21-32); Glucose Level 99 mg/dL (74-106); Magnesium 1.7 mg/dL (1.8-2.4); Sodium Level 139 mmol/L (136-145); Troponin (Emerg Dept Use Only) < 0.02 ng/mL (0.0-0.045)
--- NOTE | 2018-05-31 14:17 | RAD REPORT ---
EXAM DESCRIPTION: RAD - Chest Single View - 05/31/2018 1:55 pm CLINICAL HISTORY: Cough COMPARISON: March 2018 TECHNIQUE: AP portable chest image was obtained 1352 hours . FINDINGS: Chronic interstitial lung disease is present accentuated slightly from comparison. Diaphra gmatic eventration and elevated right hemidiaphragm noted similar to comparison. Heart and vasculatur e are normal. No measurable pleural effusion and no pneumothorax. No acute bony abnormality seen. No acute aortic findings suspected. IMPRESSION: Interstitial markings are increased slightly from comparison suggesting a mild edema or infiltrate superimposed on chronic interstitial lung disease.
[2018-05-31 14:51] LABS: Urine Blood NEGATIVE (NEG); Urine Glucose NEGATIVE (NEG); Urine Protein NEGATIVE (NEG)
--- NOTE | 2018-05-31 15:53 | ER ---
Nurse's Notes [facility] Name: Itzel Nunez Age: 87 yrs Sex: Female : 1930 Arrival Date: 05/31/2018 Time: 12:26 Bed 8 Private MD: Diagnosis: Transient cerebral ischemic attack, unspecified Presentation: 05/31 12:28 Presenting complaint: Patient states: headache that began approximately 1 week ago. aa5 Pt's daughter states "this morning when I saw her she was having trouble saying what she ate for breakfast". President Celebrity [employer]quistion are weak bilaterally, no drift noted, no facial droop noted, pt is A \\T\\ O x 4. Transition of care: patient was not received from another setting of care. Onset of symptoms was May 31, 2018. Risk Assessment: Do you want to hurt yourself or someone else? Patient reports no desire to harm self or others. Initial Sepsis Screen: Does the patient meet any 2 criteria? No. Patient's initial sepsis screen is negative. Does the patient have a suspected source of infection? No. Patient's initial sepsis screen is negative. Care prior to arrival: None. 12:28 Method Of Arrival: Wheelchair aa5 12:28 Acuity: BRENDAN 3 aa5 12:32 An acute neurological deficit is present. The charge nurse has been notified. tw2 Pre-hospital glucose is not applicable to this patient. Triage Assessment: 13:40 Pain: Pain began 1 week ago Also complains of nausea. tw2 13:41 The onset of the patients symptoms was May 24, 2018 at 08:00. Headache History: tw2 The patient has had previous headaches and this one is similar to previous episodes. General: Appears in no apparent distress. Pain: Pain currently is 6 out of 10 on a pain scale. Stroke Activation: Symptom onset > 6 hours Physician: Stroke Attending; Name: ; Notified At: ; Arrived At: Physician: Chief Stroke Resident; Name: ; Notified At: ; Arrived At: Physician: Stroke Resident; Name: ; Notified At: ; Arrived At: Physician: ED Attending; Name: ; Notified At: ; Arrived At: Physician: ED Resident; Name: ; Notified At: ; Arrived At: 12:[address] Camarillo tw2 Historical: - Allergies: 12:28 No Known Allergies; aa5 - Home Meds: 12:52 Hyzaar Oral [Active]; Metoprolol Tartrate Oral [Active]; Tramadol Oral for Chronic pain tw2 [Active]; - PMHx: 12:28 Back pain; High Cholesterol; Hypertension; TIA; aa5 - PSHx: 12:28 None; aa5 - Immunization history:: Flu vaccine is up to date. - Social history:: Smoking status: Patient/guardian denies using tobacco, Patient/guardian denies using alcohol, street drugs, The patient lives with family. - Ebola Screening: : No symptoms or risks identified at this time. - Family history:: not pertinent. Screenin:49 Abuse screen: Denies threats or abuse. Nutritional screening: No deficits noted. tw2 Tuberculosis screening: No symptoms or risk factors identified. Fall Risk None identified. Assessment: 12:40 Provider notified of bedside swallow screening results: Thomas Camarillo MD. Patient tw2 has been NPO before screening. The patient is alert, and able to follow commands. The patient does not exhibit slurred or garbled speech. The patient is exhibiting difficulty speaking. family at bedside states "she is having trouble getting the right words out" The patient does not exhibit difficulty understanding words. The patient is able to swallow own secretions with no drooling or need for suction. Patient tolerated one teaspoon of water. No drooling, immediate coughing, gurgling, or clearing of the throat was noted. The patient tolerated 90mL of water. No drooling, immediate coughing, gurgling, or clearing of the throat was noted. The patient passed the bedside swallow screening. Oral medications may be given as ordered. Contact Physician for further diet orders. Neuro: Level of Consciousness is awake, alert, obeys commands, Oriented to person, place, situation, Speech with expressive aphasia noted. 12:40 General: Appears in no apparent distress. well groomed, Behavior is calm, cooperative, tw2 appropriate for age. Pain: Complains of pain in headache. Neuro: Reports headache. Cardiovascular: Heart tones S1 S2. Respiratory: Airway is patent is compromised Respiratory effort is even, unlabored, Respiratory pattern is regular, symmetrical, Breath sounds are clear bilaterally. GI: Reports nausea. : No signs and/or symptoms were reported regarding the genitourinary system. EENT: No signs and/or symptoms were reported regarding the EENT system. Derm: No signs and/or symptoms reported regarding the dermatologic system. Musculoskeletal: No signs and/or symptoms reported regarding the musculoskeletal system. Range of motion: intact in all extremities. 13:00 Reassessment: pt assisted to use of bedpan at this time. tw2 13:10 Reassessment: pt assisted to use of bedpan at this time. tw2 13:35 Reassessment: pt assisted to use of bedpan at this time. tw2 13:44 Reassessment: Patient appears in no apparent distress at this time. Patient and/or tw2 family updated on plan of care and expected duration. Pain level reassessed. 14:40 Reassessment: Patient appears in no apparent distress at this time. Patient and/or tw2 family updated on plan of care and expected duration. Pain level reassessed. 15:50 Reassessment: Patient appears in no apparent distress at this time. Patient and/or tw2 family updated on plan of care and expected duration. Pain level reassessed. 16:27 Reassessment: Patient appears in no apparent distress at this time. Patient and/or tw2 family updated on plan of care and expected duration. Pain level reassessed. 16:59 T-PA (Activase) Screening: Contraindications: Patient reports onset of signs and tw2 symptoms of stroke greater than 6 hours ago:. Vital Signs: 12:30 BP 146 / 67; Pulse 70; Resp 16 S; Temp 97.9(O); Pulse Ox 98% on R/A; Weight 66.22 kg aa5 (R); Pain 6/10; 13:45 BP 176 / 83; Pulse 66; Resp 17; Pulse Ox 96% on R/A; tw2 14:30 BP 187 / 86; Pulse 79; Resp 17; Pulse Ox 95% on R/A; tw2 15:11 BP 179 / 80; Pulse 86; Resp 17; Pulse Ox 95% on R/A; tw2 16:26 BP 180 / 84; Pulse 81; Resp 17; Pulse Ox 95% on R/A; tw2 Kempner Coma Score: 15:48 Eye Response: spontaneous(4). Verbal Response: oriented(5). Motor Response: obeys ma2 commands(6). Total: 15. NIH Stroke Scale Scores: 12:40 NIHSS Score: 2 tw2 ED Course: 12:26 Patient arrived in ED. aa5 12:28 Arm band placed on. aa5 12:30 Triage completed. aa5 12:32 Bed in low position. Call light in reach. Adult w/ patient. photographic processor on. Pulse tw2 ox on. NIBP on. 12:39 Thomas Camarillo MD is Attending Physician. ma2 12:48 Svetlana Wahl RN is Primary Nurse. tw2 13:00 Inserted saline lock: 22 gauge in right antecubital area, using aseptic technique. tw2 Blood collected. 13:03 CT completed. Patient tolerated procedure well. Patient moved to CT via stretcher. sj Patient moved back from CT. 13:04 CT Stroke Brain w/o Contrast In Process Unspecified. EDMS 13:19 EKG done, by information technology professor. reviewed by Thomas Camarillo MD. at1 13:50 X-ray completed. Portable x-ray completed in exam room. Patient tolerated procedure mh1 well. 13:53 Stroke CXR 1 View In Process Unspecified. EDMS 14:31 initiated a transfer with [facility] [place]. eb 14:31 Urine collected: clean catch specimen, cloudy, sanjana colored. jb1 15:11 transfer declined at [facility] due to them being at capacity. eb 15:36 Assisted with bedpan. jl7 15:45 initiate a transfer with Eduard at the [facility] transfer [place]. eb 15:[address] Munoz the neurologist supervisor steel division for [facility] with Dr. Marquise young for patient transfer consultation. 16:07 administrative approval given by Eduard Mo RN, Suresh Larson has accepted the patient in transfer, report to be called to [phone], patient is going to Neuro IMU. 16:25 Report given to Nila Cerna RN. tw2 16:59 No provider procedures requiring assistance completed. Patient transferred, IV remains tw2 in place. Administered Medications: 13:00 Drug: Reglan 10 mg Route: IVP; Site: right antecubital; tw2 14:30 Follow up: Response: No adverse reaction; Nausea is decreased tw2 13:02 Drug: NS 0.9% 1000 ml Route: IV; Rate: 1 bolus; Site: right antecubital; tw2 14:30 Follow up: Response: No adverse reaction; IV Status: Completed infusion; IV Intake: tw2 1000ml 16:03 Drug: Aspirin 325 mg Route: PO; tw2 Point of Care Testing: Blood Glucose: 13:17 Blood Glucose: 110 mg/dL; tw2 Ranges: Intake: 14:30 IV: 1000ml; Total: 1000ml. tw2 Outcome: 15:52 ER care complete, transfer ordered by ma2 16:59 Patient left the ED. 7 16:59 Transferred by ground EMS tw2 16:59 Condition: stable 16:59 Instructed on the need for transfer. NIH Stroke Scale - NIH Stroke Score Date: 05/31/2018 Time: 12:40 Total Score = 2 1a. Level of Consciousness (LOC) - 0(Alert) 1b. Level of Consciousness (LOC) (Year \\T\\ Age) - 0(Both) 1c. LOC Commands (Open \\T\\ Closes Eyes/Roving Department End Finder) - 0(Both) 2. Best Gaze (Lateral Gaze Paresis) - 0(Normal) 3. Visual Field Loss - 0(No visual loss) 4. Facial Palsy - 0(Normal) 5a. Left Arm: Motor (10-second hold) - 0(No drift) 5b. Right Arm: Motor (10-second hold) - 0(No drift) 6a. Left Leg: Motor (5-second hold - always test supine) - 0(No drift) 6b. Right Leg: Motor (5-second hold - always test supine) - 0(No drift) 7. Limb Ataxia (finger/nose \\T\\ heel/soto - test with eyes open) - 0(Absent) 8. Sensory Loss (pinprick arms/legs/face) - 0(Normal) 9. Best Language: Aphasia (description/naming/reading) - 1(Mild to moderate aphasia) 10. Dysarthria (speech clarity - read or repeat words) - 1(Mild to Moderate) 11. Extinction and Inattention (visual/tactile/auditory/spatial/personal) - 0(No abnormality) Initials: tw2 Signatures: Dispatcher [employer] EDGiovany Hagan jb1 Tammy Rosa mh1 Hollie Rogers Audri, RN RN aa5 Cynthia Austin, spout liner helper EKG Tat1 vSetlana Wahl RN RN tw2 Nell Cook RN RN jl7 Thomas Camarillo MD MD ma2 Monet Collazo Corrections: (The following items were deleted from the chart) : 13:34 Patient has been NPO before screening. The patient is alert, and able to tw2 follow commands. The patient does not exhibit slurred or garbled speech. The patient is exhibiting difficulty speaking. family at bedside states "she is having trouble getting the right words out" The patient does not exhibit difficulty understanding words. The patient is able to swallow own secretions with no drooling or need for suction. Patient tolerated one teaspoon of water. No drooling, immediate coughing, gurgling, or clearing of the throat was noted. The patient tolerated 90mL of water. No drooling, immediate coughing, gurgling, or clearing of the throat was noted. The patient passed the bedside swallow screening. Oral medications may be given as ordered. Contact Physician for further diet orders. tw2 : 13:34 Provider notified of bedside swallow screening results: Thomas Camarillo tw2 tw2 : 13:34 Neuro: Level of Consciousness is awake, alert, obeys commands, Oriented tw2 to person, place, situation, Speech with expressive aphasia noted, tw2 13:34 Pain: Complains of pain in headache tw2 tw2 : 13:34 Cardiovascular: Heart tones S1 S2 tw2 tw2 : 13:34 General: Appears in no apparent distress. well groomed, Behavior is calm, tw2 cooperative, appropriate for age, tw2 : 13:34 Respiratory: Airway is patent is compromised Respiratory effort is even, tw2 unlabored, Respiratory pattern is regular, symmetrical, Breath sounds are clear bilaterally. tw2 : 13:34 GI: Reports nausea, tw2 tw2 : 13:34 Neuro: Reports headache tw2 tw2 13:34 : No signs and/or symptoms were reported regarding the genitourinary tw2 system. tw2 : 13:34 EENT: No signs and/or symptoms were reported regarding the EENT system. tw2 tw2 : 13:34 Musculoskeletal: No signs and/or symptoms reported regarding the tw2 musculoskeletal system. Range of motion: intact in all extremities, tw2 13:34 Derm: No signs and/or symptoms reported regarding the dermatologic tw2 system. tw2 13:34 NIHSS Score: 2 tw2 tw2
--- NOTE | 2018-05-31 15:53 | EDPHYS ---
Physician Documentation [facility] Name: Itzel Nunez Age: 87 yrs Sex: Female : 1930 Arrival Date: 05/31/2018 Time: 12:26 Bed 8 Private MD: ED Physician Thomas Camarillo HPI: 05/31 15:48 This 87 yrs old Female presents to ER via Wheelchair with complaints of ma2 Headache. 15:48 The patient complains of pain to the forehead. Onset: The symptoms/episode ma2 began/occurred suddenly, 4 hour(s) ago. Associated signs and symptoms: Pertinent positives: altered mental status, disarthria. Severity of symptoms: At its worst the pain was severe. Headache History: The patient has had previous headaches and this one is similar to previous episodes. The patient has not experienced similar symptoms in the past. had episode of confusion and disarthria 4 hrs prior to arrival that resolved has moderate gradual headache here . Historical: - Allergies: 12:28 No Known Allergies; aa5 - Home Meds: 12:52 Hyzaar Oral [Active]; Metoprolol Tartrate Oral [Active]; Tramadol Oral for Chronic pain tw2 [Active]; - PMHx: 12:28 Back pain; High Cholesterol; Hypertension; TIA; aa5 - PSHx: 12:28 None; aa5 - Immunization history:: Flu vaccine is up to date. - Social history:: Smoking status: Patient/guardian denies using tobacco, Patient/guardian denies using alcohol, street drugs, The patient lives with family. - Ebola Screening: : No symptoms or risks identified at this time. - Family history:: not pertinent. ROS: 15:48 Neuro: Positive for altered mental status, speech changes, Negative for gait ma2 disturbance, hearing loss, tremor, weakness. 15:48 All other systems are negative. 15:53 Constitutional: Negative for fever, chills, and weight loss. ma2 Exam: 15:48 Constitutional: This is a well developed, well nourished patient who is awake, alert, ma2 and in no acute distress. Chest/axilla: Normal chest wall appearance and motion. Nontender with no deformity. No lesions are appreciated. Cardiovascular: Regular rate and rhythm with a normal S1 and S2. No gallops, murmurs, or rubs. Normal PMI, no JVD. No pulse deficits. Respiratory: Lungs have equal breath sounds bilaterally, clear to auscultation and percussion. No rales, rhonchi or wheezes noted. No increased work of breathing, no retractions or nasal flaring. Abdomen/GI: Soft, non-tender, with normal bowel sounds. No distension or tympany. No guarding or rebound. No evidence of tenderness throughout. MS/ Extremity: Pulses equal, no cyanosis. Neurovascular intact. Full, normal range of motion. Neuro: Awake and alert, GCS 15, oriented to person, place, time, and situation. Cranial nerves II-XII grossly intact. Motor strength 5/5 in all extremities. Sensory grossly intact. Cerebellar exam normal. Normal gait. Vital Signs: 12:30 BP 146 / 67; Pulse 70; Resp 16 S; Temp 97.9(O); Pulse Ox 98% on R/A; Weight 66.22 kg aa5 (R); Pain 6/10; 13:45 BP 176 / 83; Pulse 66; Resp 17; Pulse Ox 96% on R/A; tw2 14:30 BP 187 / 86; Pulse 79; Resp 17; Pulse Ox 95% on R/A; tw2 15:11 BP 179 / 80; Pulse 86; Resp 17; Pulse Ox 95% on R/A; tw2 16:26 BP 180 / 84; Pulse 81; Resp 17; Pulse Ox 95% on R/A; tw2 NIH Stroke Scale Scores: 12:40 NIHSS Score: 2 tw2 [place] Coma Score: 15:48 Eye Response: spontaneous(4). Verbal Response: oriented(5). Motor Response: obeys ma2 commands(6). Total: 15. MDM: 12:39 Patient medically screened. ma2 15:48 Differential diagnosis: cerebral vascular accident, migraine, uremia, possible TIA as ma2 symptoms resolved. Data reviewed: vital signs, nurses notes. Counseling: I had a detailed discussion with the patient and/or guardian regarding: the historical points, exam findings, and any diagnostic results supporting the discharge/admit diagnosis, the presence of at least one elevated blood pressure reading (>120/80) during this emergency department visit, the need to transfer to another facility. ED course: will transfer for higher level of care as no neurology available at our hospital today . 05/31 12:52 Order name: Magnesium; Complete Time: 15:54 nc2 05/31 12:52 Order name: Troponin (emerg Dept Use Only); Complete Time: 15:54 nc05/31 12:52 Order name: Basic Metabolic Panel; Complete Time: 15:54 nc2 05/31 12:52 Order name: CBC with Diff; Complete Time: 13:42 nc2 05/31 12:52 Order name: Protime (+inr); Complete Time: 13:42 nc05/31 12:52 Order name: Ptt, Activated; Complete Time: 13:42 nc05/31 12:52 Order name: CT Stroke Brain w/o Contrast; Complete Time: 13:42 [facility] 05/31 12:52 Order name: Stroke CXR 1 View; Complete Time: 15:54 nc05/31 12:52 Order name: EKG; Complete Time: 12:53 [facility] 05/31 14:31 Order name: Urine Culture [facility] 05/31 14:41 Order name: Urine Dipstick--Ancillary (enter results); Complete Time: 15:54 05/31 12:52 Order name: Accucheck; Complete Time: 13:47 [facility] 05/31 12:52 Order name: Cardiac monitoring; Complete Time: 13:47 [facility] 05/31 12:52 Order name: EKG - Nurse/Tech; Complete Time: 13:47 nc05/31 12:52 Order name: IV Saline Lock; Complete Time: 13:47 [facility] 05/31 12:52 Order name: Labs collected and sent; Complete Time: 13:47 nc05/31 12:52 Order name: NPO; Complete Time: 13:47 nc05/31 12:52 Order name: O2 Per Protocol; Complete Time: 13:48 nc05/31 12:52 Order name: O2 Sat Monitoring; Complete Time: 13:48 nc05/31 12:52 Order name: Stroke Swallow Screen; Complete Time: 13:48 nc05/31 15:03 Order name: Diet Ada 1800 Eric; Complete Time: 15:04 iw Administered Medications: 13:00 Drug: Reglan 10 mg Route: IVP; Site: right antecubital; tw2 14:30 Follow up: Response: No adverse reaction; Nausea is decreased tw2 13:02 Drug: NS 0.9% 1000 ml Route: IV; Rate: 1 bolus; Site: right antecubital; tw2 14:30 Follow up: Response: No adverse reaction; IV Status: Completed infusion; IV Intake: tw2 1000ml 16:03 Drug: Aspirin 325 mg Route: PO; tw2 Point of Care Testing: Blood Glucose: 13:17 Blood Glucose: 110 mg/dL; tw2 Ranges: Critical Glucose Levels:Adult <50 mg/dl or >400 mg/dl <40 mg/dl or >180 mg/dl Disposition: 05/31/18 15:52 Transfer ordered to [facility]. Diagnosis is Transient cerebral ischemic attack, unspecified. - Reason for transfer: Higher level of care. - Accepting physician is accepted by Dr. Arevalo. - Condition is Stable. - Problem is new. - Symptoms are resolved. NIH Stroke Scale - NIH Stroke Score Date: 05/31/2018 Time: 12:40 Total Score = 2 1a. Level of Consciousness (LOC) - 0(Alert) 1b. Level of Consciousness (LOC) (Year \T\ Age) - 0(Both) 1c. LOC Commands (Open \T\ Closes Eyes/Planetarium Technician) - 0(Both) 2. Best Gaze (Lateral Gaze Paresis) - 0(Normal) 3. Visual Field Loss - 0(No visual loss) 4. Facial Palsy - 0(Normal) 5a. Left Arm: Motor (10-second hold) - 0(No drift) 5b. Right Arm: Motor (10-second hold) - 0(No drift) 6a. Left Leg: Motor (5-second hold - always test supine) - 0(No drift) 6b. Right Leg: Motor (5-second hold - always test supine) - 0(No drift) 7. Limb Ataxia (finger/nose \T\ heel/soto - test with eyes open) - 0(Absent) 8. Sensory Loss (pinprick arms/legs/face) - 0(Normal) 9. Best Language: Aphasia (description/naming/reading) - 1(Mild to moderate aphasia) 10. Dysarthria (speech clarity - read or repeat words) - 1(Mild to Moderate) 11. Extinction and Inattention (visual/tactile/auditory/spatial/personal) - 0(No abnormality) Initials: tw2 Signatures: Dispatcher [employer] Adriana Minor, RN RN aa5 Svetlana Wahl, RN RN tw2 Nell Cook RN RN jl7 Thomas Camarillo MD MD nc2 Corrections: (The following items were deleted from the chart) 15:55 15:52 05/31/2018 15:52 Transfer ordered to [address] Diagnosis is Transient cerebral ischemic attack, unspecified. Reason for transfer: Higher level of care. Accepting physician is [facility]. Condition is Stable. Problem is new. Symptoms are resolved. ma2 16:59 15:55 05/31/2018 15:52 Transfer ordered to [address] Diagnosis is Transient cerebral ischemic attack, unspecified. Reason for transfer: Higher level of care. Accepting physician is accepted by Dr. Arevalo. Condition is Stable. Problem is new. Symptoms are resolved. nc2
[2018-05-31] MEDS ORDERED: ASPIRIN 325 MG TAB ONE (16:11)
--- NOTE | 2018-05-31 17:26 | EKG ---
Test Date: 2018-05-31 Test Time: 13:12:15 Sales Center Associate: [place]/S MEASUREMENT RESULTS: Intervals: Rate: 71 DC: 174 QRSD: 90 QT: 424 QTc: 460 [place]: P: 40 DC: 174 QRS: -12 T: 34 INTERPRETIVE STATEMENTS: Sinus rhythm with occasional premature ventricular complexes Low voltage QRS Cannot rule out Anteroseptal infarct, age undetermined Abnormal ECG Compared to ECG 03/29/2018 10:19:51 Ventricular premature complex(es) now present Low QRS voltage now present Left-axis deviation no longer present Myocardial infarct finding still present Electronically Signed On 05-31-18 17:25:35 SENIOR AUTOMATION ENGINEER by Fabrice Ledezma
== END 2018-05-31 16:59 | disposition short-term general hospital (02) ==
LOC: ER 12:24
DX: G45.9 Transient cerebral ischemic attack, unspecified (principal); I10 Essential (primary) hypertension; E78.00 Pure hypercholesterolemia, unspecified
CPT/HCPCS: 36415; 70450; 71045; 80048; 81003; 82962; 83735; 84484; 85025; 85610; 85730; 87086; 87088; 93005; 96361; 96374; 99285; J2765; J7030

== ENCOUNTER 2018-07-18 14:02 | Observation (INO) | payer OTHER ==
--- OUTSIDE RECORDS SUMMARY | 2018-07-18 14:07 | XMS REPORT | Continuity of Care Document ---
:1930 Author Organization Interface Problems Problem Status Onset Classification Date Comments Source Date Reported TIA Active 05/31/[address] SPINE KYPHOPLASTY Active 04/30/19 [place] [id number] Anxiety and Active Problem 06/09/2018 [facility] depression [facility] GERD (<span Active Problem 06/09/2018 [facility] ID="[id number]" [facility] >Confirmed</span> [facility] ) Osteoarthritis Active Problem 06/09/2018 [facility] Osteoporosis Active Problem 06/09/2018 [facility] ILLNESS, Active [facility] UNSPECIFIED [facility] Medications Medication Details Route Status Patient Ordering Order Source Instructions Provider Date Ambien 5 mg, 1 tab, Inactive Route: PO, 2018 [facility] Drug form: [place] TAB, Bedtime, Dosing Weight 65.3, kg, Start date: 06/07/18 21:00:00 [employer], Duration: 30 day, Stop date: 07/06/18 21:00:00 CDTNotes: (Same As: Ambien) Melatonin 3 MG 3 mg, 1 tab, No Longer Extended Release Route: PO, Active 2018 [facility] Tablet Drug Form: [place] TAB, Dosing Weight 65.3, kg, Bedtime, Start date: 06/06/18 21:00:00 [employer], Duration: 30 day, Stop date: 07/05/18 21:00:00 CDTNotes: (Same as: Melatonin) losartan 100 mg 100 mg=1 tab, Active oral tablet PO, Daily, # 2019 [facility] tab, 0 City Refill(s), Pharmacy: [facility]/pharmacy #[id number] amLODIPine 5 mg 7.5 mg=1.5 Active oral tablet tab, PO, 2019 [facility] Daily, # 45 City tab, 0 Refill(s), Pharmacy: [facility]/pharmacy #[id number] atorvastatin 40 mg 40 mg=1 tab, Active oral tablet PO, Bedtime, # 2019 [facility] 30 tab, 0 City Refill(s), Pharmacy: [facility]/pharmacy #[id number] Aspirin 81 MG 81 mg=1 tab, Active Enteric Coated PO, Daily, 0 2018 [facility] Tablet Refill(s) [facility] Amlodipine 7.5 mg, 1.5 No Longer tab, Route: Active 2018 [facility] PO, Drug form: [place] TAB, Daily, Dosing Weight 65.3, kg, Start date: 06/04/18 9:00:00 [employer], Duration: 30 day, Stop date: 07/03/18 9:00:00 CDTNotes: (Same as: Norvasc) Aspirin 81 mg, 1 tab, No Longer Route: PO, 2018 [facility] Drug form: [facility] ECTAB, Daily, Dosing Weight 65.3, kg, Start date: 06/04/18 9:00:00 [employer], Duration: 30 day, Stop date: 07/03/18 9:00:00 CDTNotes: Do not crush or chew. (Same As: Ecotrin) duloxetine 30 mg, 1 cap, No Longer Route: PO, 2018 [facility] Drug form: [facility] DRC, BID, Dosing Weight 65.3, kg, Start date: 06/03/18 9:44:00 [employer], Duration: 30 day, Stop date: 07/03/18 9:00:00 CDTNotes: (Same as: Cymbalta) (Do Not Crush) Citalopram 20 mg, 1 tab, No Longer Route: PO, 2018 [facility] Drug form: [facility] TAB, Daily, Dosing Weight 65.3, kg, Start date: 06/03/18 9:44:00 [employer], Duration: 30 day, Stop date: 07/03/18 9:00:00 CDTNotes: (Same As: CeleXA) metoprolol 50 mg, 1 tab, No Longer tartrate Route: PO, Active 2018 [facility] Drug form: [facility] TAB, Q12H, Dosing Weight 65.3, kg, Priority: NOW, Start date: 06/03/18 9:40:00 [employer], Duration: 30 day, Stop date: 07/03/18 9:00:00 CDTNotes: (Same as: Lopressor) Metoprolol 5 mg, 5 mL, No Longer Route: IV, Active 2018 [facility] Drug form: [facility] INJ, ONCE, Dosing Weight 65.3, kg, Start date: 06/02/18 23:40:00 [employer], Stop date: 06/02/18 23:40:00 CSTNotes: (Same as: Lopressor) Push over 2 minutes normal saline 0.9% 1,000 mL, No Longer IV 1,000 mL Rate: 90 Active 2019 [facility] ml/hr, Infuse [facility] over: 11.1 hr, Route: IV, Dosing Weight 65.3 kg, Total Volume: 1,000, Start date: 06/02/18 15:27:00 [employer], Duration: 1 day, Stop date: 06/03/18 15:26:00 [employer], 1.69, m2 Magnesium Sulfate 2 gm, 50 mL, Inactive Route: IVPB, 2018 [facility] Drug form: [facility] INJ, ONCE, Dosing Weight 65.3, kg, Start date: 06/02/18 9:34:00 [employer], Stop date: 06/02/18 9:34:00 CSTNotes: WASTE: F/P - Sink; E - [facility]ash [facility] Potassium Chloride 40 mEq, 2 tab, Inactive Route: PO, 2018 [facility] Drug form: [facility] ERTAB, ONCE, Dosing Weight 65.3, kg, Start date: 06/02/18 5:24:00 [employer], Stop date: 06/02/18 5:24:00 CSTNotes: (Same as: K-Dur 20) "Do Not Crush" Give with food and full glass of water For patients unable to swallow tablet, dissolve in one half glass of water. Allow about 2 minutes for the tablets to disintegrate. Stir before giving to prepare slurry and administer. Please exclude Patients with feeding tube less than 14 [place] (Dobhoff, J-tube etc) and pediatric and patients. atorvastatin 40 mg, 1 tab, No Longer Route: PO, Active 2018 [facility] Drug form: [place] TAB, Bedtime, Dosing Weight 65.3, kg, Start date: 06/01/18 21:00:00 [employer], Duration: 30 day, Stop date: 06/30/18 21:00:00 CDTNotes: (Same as: Lipitor) Melatonin 6 mg, 2 tab, No Longer Route: PO, Active 2018 [facility] Drug form: [place] TAB, Bedtime, Dosing Weight 65.3, kg, PRN as needed for sleep, Start date: 06/01/18 20:11:00 [employer], Duration: 30 day, Stop date: 07/01/18 20:10:00 CDTNotes: (Same as: Melatonin) Losartan 100 mg, 1 tab, No Longer Route: PO, Active 2018 [facility] Drug form: [place] TAB, Daily, Dosing Weight 65.3, kg, Priority: NOW, Start date: 06/01/18 18:40:00 [employer], Duration: 30 day, Stop date: 07/01/18 9:00:00 CDTNotes: (Same as: Ivethzaar) Hydralazine 10 mg, 0.5 mL, No Longer Route: IVP, Active 2018 [facility] Drug form: [place] INJ, Q2H, Dosing Weight 65.3, kg, PRN Hypertension, Start date: 06/01/18 18:40:00 [employer], Duration: 30 day, Stop date: 07/01/18 18:39:00 CDTNotes: (Same as: Apresoline) Push over 5 minutes Losartan 100 mg, 1 tab, Inactive Route: PO, 2018 [facility] Drug form: [place] TAB, Daily, Dosing Weight 65.3, kg, Start date: 06/01/18 9:00:00 [employer], Duration: 30 day, Stop date: 06/30/18 9:00:00 CDTNotes: (Same as: Chandan) Amlodipine 5 mg, 1 tab, No Longer Route: PO, Active 2018 [facility] Drug form: [place] TAB, Daily, Dosing Weight 65.3, kg, Start date: 06/01/18 9:00:00 [employer], Duration: 30 day, Stop date: 06/30/18 9:00:00 CDTNotes: (Same as: Norvasc) Enoxaparin 30 mg, 0.3 mL, No Longer Route: SUB-Q, Active 2018 [facility] Drug form: [place] INJ, [id number], Dosing Weight 65.3, kg, Start date: 06/01/18 9:00:00 [employer], Duration: 30 day, Stop date: 06/30/18 9:00:00 CDTNotes: (Same as: Lovenox) Saline Flush 0.9% 10 ml, Route: Inactive IVP, Drug 2018 [facility] Form: INJ, [facility] Dosing Weight 65.3, kg, Q12H, Start date: 06/01/18 9:00:00 [employer], Duration: 30 day, Stop date: 06/30/18 21:00:00 CDTNotes: (Same as: BD Posiflush) pantoprazole 40 mg, 1 tab, No Longer Route: PO, Active 2018 [facility] Drug form: [place] ECTAB, Daily, Dosing Weight 65.3, kg, Start date: 06/01/18 9:00:00 [employer], Duration: 30 day, Stop date: 06/30/18 9:00:00 CDTNotes: Tablet should not be chewed or crushed. (Same as: Protonix) Sodium Chloride 25 mL, Route: No Longer 0.9% IV IV, Start Active 2018 [facility] date: 06/01/18 [facility] 7:02:00 [employer], Duration: 30 day, Stop date: 07/01/18 8:01:00 CDT, PRN Line Flush BD Normal Saline 10 mL, Route: Inactive Flush IV, Drug Form: 2018 [facility] INJ, PRN, PRN [facility] Line Flush, Start date: 06/01/18 7:02:00 [employer], Duration: 30 day, Stop date: 07/01/18 8:01:00 CDTNotes: (Same as: BD Posiflush) citalopram 20 mg 20 mg=1 tab, Active oral tablet PO, Daily, 0 2018 [facility] Refill(s) [facility] pitavastatin 2 mg 2 mg=1 tab, No Longer oral tablet PO, Daily, 0 Active 2018 [facility] Refill(s) [facility] Aspirin 325 MG 325 mg, 1 tab, No Longer Enteric Coated Route: PO, Active 2018 [facility] Tablet Drug form: [place] ECTAB, Q24H, Dosing Weight 65.3, kg, Start date: 05/31/18 22:00:00 [employer], Duration: 30 day, Stop date: 06/29/18 22:00:00 CDTNotes: (Do Not Crush) Do not crush or chew. Saline Flush 0.9% 10 ml, Route: No Longer IVP, Drug Active 2018 [facility] Form: INJ, [facility] Dosing Weight 65.3, kg, PRN, PRN Line Flush, Start date: 05/31/18 21:03:00 [employer], Duration: 30 day, Stop date: 06/30/18 22:02:00 CDTNotes: (Same as: BD Posiflush) Acetaminophen 650 mg, 2 tab, No Longer Route: PO, Active 2018 [facility] Drug form: [facility] TAB, Q4H, Dosing Weight 65.3, kg, PRN Pain 1-3/Temp > 100.4 F, Start date: 05/31/18 21:03:00 [employer], Duration: 30 day, Stop date: 06/30/18 21:02:00 CDTNotes: Do not exceed 4 gm/day. (Same as: Tylenol) Labetalol 10 mg, 2 mL, No Longer Route: IVP, [facility] 2018 [facility] Drug form: [facility] INJ, Q10Min, Dosing Weight 65.3, kg, PRN Hypertension, For SBP > 180 mmHg and/or DBP > 105 mmHg, Start date: 05/31/18 21:03:00 [employer], Duration: 30 day, Stop date: 06/30/18 22:02:00 CDTNotes: (Same as: Normodyne, Trandate) Push over 2 minutes Give bolus over 2-3 minutes. Sodium Chloride 1,000 mL, No Longer 0.9% IV 1,000 mL Rate: [address] ml/hr, Infuse [facility] over: 20 hr, Route: IV, Dosing Weight 65.3 kg, Total Volume: 1,000, Start date: 05/31/18 21:03:00 [employer], Duration: 30 day, Stop date: 06/30/18 21:02:00 CDT, 1.69, m2 Metoprolol 5 mg, Route: Inactive IV, POST OP, [address] [place] [address] Dosing Weight 66.364, kg, Start date: 05/27/18 15:00:00 [employer], Duration: 30 day, Stop date: 06/26/18 14:59:00 [employer] Morphine 2 mg, Route: Inactive IVP, Q5Min, 2018 [facility] Dosing Weight 66.364, kg, PRN Pain Score 4-6, Start date: 05/27/18 13:38:00 [employer], Duration: 5 doses or times, Stop date: Limited # of times Flumazenil 0.2 mg, Route: Inactive IVP, PRN, 2019 [facility] Dosing Weight 66.364, kg, PRN Benzodiazepine Reversal, Initial dose, Start date: 05/27/18 13:38:00 [employer], Duration: 30 day, Stop date: 06/26/18 13:37:00 [employer] Hydromorphone 0.5 mg, Route: Inactive IVP, Q5Min, 2018 [facility] Dosing Weight 66.364, kg, PRN Pain Score 7-10, Start date: 05/27/18 13:38:00 [employer], Duration: 4 doses or times, Stop date: Limited # of times Naloxone 0.4 mg, Route: Inactive IVP, Q2MIN, 2018 [facility] Dosing Weight 66.364, kg, PRN Narcotic Reversal, Start date: 05/27/18 13:38:00 [employer], Duration: 8 doses or times, Stop date: Limited # of times Ondansetron 4 mg, Route: Inactive IVP, ONCE, 2018 [facility] Dosing Weight 66.364, kg, PRN Nausea & Vomiting, Start date: 05/27/18 13:38:00 [employer] Acetaminophen 1,000 mg, Inactive Route: IVPB, 2018 [facility] Drug form: INJ, ONCE, Dosing Weight 66.364, kg, PRN Pain Score 1-3, Start date: 05/27/18 13:38:00 [employer] Labetalol 10 mg, Route: Inactive IVP, Q5Min, 2018 [facility] Dosing Weight 66.364, kg, PRN Elevated BP, Start date: 05/27/18 13:38:00 [employer], Duration: 5 doses or times, Stop date: Limited # of times Calcium Chloride 1,000 mL, Inactive 0.0014 MEQ/ML / Rate: 125 2018 [facility] Potassium Chloride ml/hr, Infuse 0.004 MEQ/ML / over: 8 hr, Sodium Chloride Route: IV, 0.103 MEQ/ML / Dosing Weight Sodium Lactate 66.364 kg, 0.028 MEQ/ML Total Volume: Injectable 1,000, Start Solution date: 05/27/18 13:38:00 [employer], Duration: 30 day, Stop date: 06/26/18 13:37:00 [employer], 1.73, m2 Albuterol 0.833 3 mL, Route: Inactive MG/ML / NEB, Dosing 2019 [facility] Ipratropium Weight 66.364, [place] 0.167 kg, ONCE, MG/ML Inhalant STAT, Start Solution date: 05/27/18 11:07:00 [employer], Stop date: 05/27/18 11:07:00 [employer] Calcium Chloride 1,000 mL, Inactive 0.0014 MEQ/ML / Rate: 25 2018 [facility] Potassium Chloride ml/hr, Infuse 0.004 MEQ/ML / over: 40 hr, Sodium Chloride Route: IV, 0.103 MEQ/ML / Dosing Weight Sodium Lactate 66.364 kg, 0.028 MEQ/ML Total Volume: Injectable 1,000, Start Solution date: 05/27/18 11:07:00 [employer], Duration: 30 day, Stop date: 06/26/18 11:06:00 [employer], 1.73, m2 tramadol 50 mg=1 tab, Active hydrochloride 50 PO, Q8H 2019 [facility] MG Oral Tablet Docusate Sodium 50 2 tab, PO, Active MG / sennosides, Bedtime, 0 2018 [facility] ASSISTED 8.6 MG Oral Refill(s) Tablet Omeprazole 20 mg, PO, Active Daily, 0 2018 [facility] Refill(s) amLODIPine 5 mg 5 mg=1 tab, Active oral tablet PO, Daily, 0 2018 [facility] Refill(s) Melatonin 3 MG 3 mg=1 tab, Active Extended Release PO, Bedtime, 2019 [facility] Tablet PRN for insomnia, # 14 tab, 0 Refill(s) Hydrochlorothiazid 1 tab, PO, Active e 25 MG / Losartan Daily, 0 2018 [facility] Potassium 100 MG Refill(s) Oral Tablet metoprolol 50 mg, PO, Active tartrate BID, 0 2018 [facility] Refill(s) escitalopram 10 mg 10 mg=1 tab, Active oral tablet PO, Daily, 0 2018 Refill(s) DULoxetine 30 mg 30 mg=1 cap, Active oral delayed PO, BID, 2018 release capsule Refill(s) Aspirin 325 MG 325 mg=1 tab, Active Oral Tablet PO, Daily, 2018 Refill(s) Diphenhydramine 25 mg, as Active 2018 Allergies, Adverse Reactions, Alerts Substance Category Reaction Severity Reaction Status Date Comments Source type Reported Immunizations Immunization Date Given Site Status Last Updated Comments Source Results Order Name Results Value Reference Date Interpretation Comments Source Range ELECTROLYT AGAP 11.9 meq/L 10.0 - 06/05 ES 20.0 [facility] ELECTROLYT Glucose Lvl 93 mg/dL 70 - 99 06/05 [facility] ELECTROLYT BUN 18 mg/dL 7 - 22 06/05 [facility] ELECTROLYT CO2 25 meq/L 24 - 32 06/05 [facility] ELECTROLYT Sodium Lvl 138 meq/L 135 - 145 06/05 [facility] ELECTROLYT Chloride Lvl 105 meq/L 95 - 109 06/05 [facility] ELECTROLYT Potassium 3.9 meq/L 3.5 - 5.1 06/05 ES Lvl [facility] ELECTROLYT eGFR 51 06/05 Result Comment: The eGFR is calculated using the CKD-EPI formula. In most young, healthy individuals the eGFR will be >90 mL/ min/1.73m2. The eGFR declines with age. An eGFR of 60-89 may be normal in mL/min/1.7 some populations, particularly the elderly, for whom the CKD-EPI formula has not been extensively validated. Use of the eGFR is not recommended in the following populations: [address] Individuals with unstable creatinine concentrations, including patients and those with serious co-morbid conditions. Patients with extremes in muscle mass or diet. The data above are obtained from the National Kidney Disease Education Program (NKDEP) which additionally recommends that when the eGFR is used in patients with extremes of body mass index for purposes of drug dosing, the eGFR should be multiplied by the estimated BMI. ELECTROLYT Creatinine 0.99 mg/dL 0.50 - 02/16 MH ES Lvl 1.40 [facility] ELECTROLYT Phosphorus 3.4 mg/dL 2.5 - 4.5 06/05 [facility] ELECTROLYT Albumin Lvl 3.3 g/dL 3.5 - 5.0 06/05 [facility] ELECTROLYT Calcium Lvl 9.0 mg/dL 8.5 - 10.5 06/05 [facility] CHEM PANEL Phosphorus 3.0 mg/dL 2.5 - 4.5 06/03 [facility] CHEM PANEL Magnesium 2.1 mg/dL 1.8 - 2.4 06/03 Lv [facility] CHEM PANEL eGFR 40 06/03 Result Comment: The eGFR is calculated using the CKD-EPI formula. In most young, healthy individuals the eGFR will be >90 mL/ min/1.73m2. The eGFR declines with age. An eGFR of 60-89 may be normal in mL/min/1. some populations, particularly the elderly, for whom the CKD-EPI formula has not been extensively validated. Use of the eGFR is not recommended in the following populations: [address] Individuals with unstable creatinine concentrations, including patients and those with serious co-morbid conditions. Patients with extremes in muscle mass or diet. The data above are obtained from the National Kidney Disease Education Program (NKDEP) which additionally recommends that when the eGFR is used in patients with extremes of body mass index for purposes of drug dosing, the eGFR should be multiplied by the estimated BMI. CHEM PANEL Creatinine 1.20 mg/dL 0.50 - 06/03 Lvl 1.40 [facility] CHEM PANEL Calcium Lvl 9.4 mg/dL 8.5 - 10.5 06/03 [facility] CHEM PANEL Glucose Lvl 192 mg/dL 70 - 99 06/03 [facility] CHEM PANEL CO2 21 meq/L 24 - 32 06/03 [facility] CHEM PANEL AGAP 16.9 meq/L 10.0 - 06/03 20. [facility] CHEM PANEL BUN 15 mg/dL 7 - 22 06/03 [facility] CHEM PANEL Sodium Lvl 140 meq/L 135 - 145 06/03 [facility] CHEM PANEL Potassium 3.9 meq/L 3.5 - 5.1 06/03 Lv [facility] CHEM PANEL Chloride Lvl 106 meq/L 95 - 109 06/03 [facility] CHEM PANEL Magnesium 1.5 mg/dL 1.8 - 2.4 06/02 Lvl [facility] ELECTROLYT AGAP 13.3 meq/L 10.0 - 06/02 ES 20.0 [facility] ELECTROLYT Chloride Lvl 104 meq/L 95 - 109 06/02 [facility] ELECTROLYT Potassium 3.3 meq/L 3.5 - 5.1 06/02 ES Lvl [facility] ELECTROLYT Sodium Lvl 141 meq/L 135 - 145 06/02 [facility] ELECTROLYT Calcium Lvl 9.3 mg/dL 8.5 - 10.5 06/02 ES [facility] ELECTROLYT CO2 27 meq/L 24 - 32 06/02 [facility] ELECTROLYT BUN 11 mg/dL 7 - 22 06/02 [facility] ELECTROLYT Glucose Lvl 106 mg/dL 70 - 99 06/02 [facility] ELECTROLYT eGFR 57 06/02 Result Comment: The eGFR is calculated using the CKD-EPI formula. In most young, healthy individuals the eGFR will be >90 mL/ min/1.73m2. The eGFR declines with age. An eGFR of 60-89 may be normal in ES mL/min/1. some populations, particularly the elderly, for whom the CKD-EPI formula has not been extensively validated. Use of the eGFR is not recommended in the following populations: [address] Individuals with unstable creatinine concentrations, including patients and those with serious co-morbid conditions. Patients with extremes in muscle mass or diet. The data above are obtained from the National Kidney Disease Education Program (NKDEP) which additionally recommends that when the eGFR is used in patients with extremes of body mass index for purposes of drug dosing, the eGFR should be multiplied by the estimated BMI. ELECTROLYT Creatinine 0.90 mg/dL 0.50 - 06/02 ES Lvl 1.40 [facility] HEMATOLOGY Hgb 13.1 g/dL 12.0 - 06/02 16. [facility] HEMATOLOGY Hct 37.7 % 36.0 - 06/02 MH 48.0 [facility] HEMATOLOGY MCV 91.7 fL 80.0 - 06/02 98.0 [facility] HEMATOLOGY MCH 31.8 pg 27.0 - 06/02 MH 31.0 [facility] MCHC 34.7 g/dL 32.0 - 06/02 MH 36.0 [facility] HEMATOLOGY RDW 13.4 % 11.5 - 06/02 MH 14.5 [facility] Platelet 303 K/CMM 133 - 450 06/02 [facility] MPV 7.7 fL 7.4 - 10.4 06/02 [facility] RBC 4.12 M/CMM 4.20 - 06/02 MH 5.40 /2018 [facility] WBC 8.7 K/CMM 3.7 - 10.4 06/02 [facility] Eosinophils 0.2 K/CMM 0.0 - 0.5 06/02 [facility] Basophils # 0.1 K/CMM 0.0 - 0.2 06/02 [facility] Monocytes 11.2 % 2.0 - 12.0 06/02 [facility] HEMATOLOGY Lymphocytes 25.0 % 20.0 - 06/02 MH 40.0 [facility] Segs 60.7 % 45.0 - 06/02 MH 75.0 [facility] Lymphocytes 2.2 K/CMM 1.0 - 5.5 06/02 [facility] HEMATOLOGY Monocytes # 1.0 K/CMM 0.0 - 0.8 06/02 [facility] Neutrophils 5.3 K/CMM 1.5 - 8.1 06/02 [facility] HEMATOLOGY Eosinophils 2.1 % 0.0 - 4.0 06/02 [facility] Basophils 1.0 % 0.0 - 1.0 06/02 [facility] Chest CTA Chest CTA EXAMINATION: CT ANGIOGRAPHY OF THE CHEST WITH CONTRAST 06/02 - - [facility] HISTORY: Altered mental status; history of thoracic compression fracture status post vertebroplasty on 05/27/2018; pericardial effusion; "Eval for RV perforation in setting of recent kyphoplasty an Read by: Itz Garcia MD d subsequent pericardial effusion w/ layering thrombus"; Dictated Date/time: 06/02/18 14:01 Electronically Signed by: Itz Garcia MD 06/02/18 14:19 FINAL REPORT TECHNIQUE: Multiple contiguous transaxial CT images of the chest are obtained following the administration of intravenous contrast in the arterial phase. Coronal and sagittal reformatted images are perf ormed. 3D/MIP reformatted images of the aorta were created at the acquisition scanner. This exam was performed according to our departmental dose- optimization program which includes automated exposure c ontrol, adjustment of the mA and/or kV according to patient size and/or use of iterative reconstruction technique. IV Contrast: 100 ml Omnipaque 300 DLP: 2576 mGy-cm COMPARISON: There are no comparisons. FINDINGS: Aorta: The thoracic aorta is normal in size without aneurysmal dilatation. There is no evidence of aortic dissection or aortic rupture. The left vertebral artery arises directly from the aortic arch, a normal variant. Lower Neck: The visible portions of the lower neck and thyroid are unremarkable. Heart: The heart size is normal. There is a small pericardial effusion along the anterior aspect of the heart, superficial to the right ventricle, with mild heterogeneous attenuation of the pericardial fluid. There is no arterial contrast extravasation within the pericardial sac. There is no CT evidence of perforation of the right ventricular wall. Lymph Nodes: There is no supraclavicular, axillary, mediastinal, or hilar lymphadenopathy. Lungs and Pleura: No pneumonic consolidation, pleural effusion, or pneumothorax. Upper Abdomen: There is elevation of the right hemidiaphragm with displacement of the heart to the left. There is a small hiatal hernia. There is a large complex cyst lesion arising from the superior left kidney partially visualized. Osseous Structures: There is a mild to moderate T12 compression fracture deformity status post vertebroplasty procedure at this level. A small amount of methylmethacrylate extrudes along the left ronel lateral aspect of the T12-L1 intervertebral disc space (series 300 B, image 74). There is no extrusion of methylmethacrylate within the spinal canal and there is no evidence of methylmethacrylate pulmonary embolism. IMPRESSION: 1. Small pericardial effusion along the anterior aspect of the heart, superficial to the right ventricle, with mild heterogeneous attenuation of the pericardial fluid in keeping with the patient's reported small volume thrombus within the pericardial fluid. There is no arterial contrast extravasation within the pericardial sac and there is no CT evidence of perforation of the right ventricular wall. 2. Mild to moderate T12 compression fracture deformity status post vertebroplasty procedure with a small amount of methylmethacrylate extrusion along the left anterolateral aspect of the T12-L1 interver tebral disc space. There is no extrusion of methylmethacrylate within the spinal canal and there is no evidence of methylmethacrylate pulmonary embolism. 3. Large complex cystic lesion arising from the superior left kidney which is only partially visualized and incompletely characterized. Cystic renal cell carcinoma could potentially have a similar appea eloy, but again this lesion is incompletely imaged. Further evaluation with renal ultrasound versus dedicated CT examination of the abdomen and pelvis without and with intravenous contrast with renal mass protocol is recommended. 4. Clear lungs without focal pneumonic consolidation. ANEMIA Vitamin B12 598 pg/mL 254 - 1320 06/01 STUDY Lvl /2018 [facility] CARDIAC Troponin-I null 0.00 - 06/01 ENZYMES 0.40 [facility] CHEM PANEL Ammonia 12.0 <=45.0 06/01 umol/L uMol/L /2018 [facility] CARDIAC Troponin-I null 0.00 - 06/01 ENZYMES 0.40 [facility] Brain/Neck Brain/Neck EXAM: CTA NECK WITH CONTRAST 06/01 CTA CTA /2018 [facility] EXAM: CTA BRAIN WITH CONTRAST [facility] EXAM: NONCONTRAST CT BRAIN Read by: Fabrice Hatch MD Dictated Date/time: 06/01/18 11:49 Electronically Signed by: Fabrice Hatch MD 06/01/18 11:57 FINAL REPORT DATE: 06/01/2018 8:12 [employer] ORDERING PHYSICIAN: Ashwin Bell MD CLINICAL INDICATION: Confusion - r/o occlusive carotid disease; TECHNIQUE Rapid acquisition spiral images were obtained following the intravenous administration of 100 mL Omnipaque. 3D MIP reconstructions were performed. Precontrast images of the brain were also obtained. This exam was performed according to our departmental dose-optimization protocol, which includes automated exposure control, adjustment of the mA and/ or kV according to patient size and/or use of iterative reconstruction technique. DLP: 2178 mGy-cm This exam was performed according to our departmental dose-optimization protocol, which includes automated exposure control, adjustment of the mA and/ or kV according to patient size and/or use of iterative reconstruction technique. COMPARISON: Outside facility brain CT of 05/31/2018, 05/31/2018 brain magnetic resonance imaging DISCUSSION: BRAIN CT: BRAIN PARENCHYMA: There is no evidence of cerebral edema, mass, mass effect , hemorrhage, or recent cortical infarct. The collado-white distinction is maintained. There is moderate generalized cortical and deep white matter volume loss. Chronic small vessel ischemic changes are present. There are calcified atherosclerotic changes. CEREBELLOPONTINE REGIONS AND SKULL BASE: The cerebellopontine angles appear unremarkable. Skull VENTRICLES/SULCI/CISTERNS: The lateral ventricles are normal size and configuration. The cortical sulci are patent. The basal cisterns are patent. ORBITS, VISUALIZED PARANASAL SINUSES AND MASTOIDS: Paranasal sinuses are clear. The mastoid air cells are clear. No orbital pathology is seen. CTA NECK: Aortic arch: Type 3 anatomy. No atherosclerosis. No great vessel origin stenosis. Left carotid system: The common carotid is tortuous but otherwise unremarkable. There is minimal plaque in the bifurcation with estimated carotid bifurcation narrowing less than 5%. The distal cervical internal carotid artery is tortuous but otherwise unremarkable. Right carotid system: The common carotid is tortuous but otherwise unremarkable. There is minimal plaque in the bifurcation with estimated carotid bifurcation narrowing less than 5%. The distal cervica l internal carotid artery is tortuous but otherwise unremarkable. Vertebral arteries: Codominant system. Normal course, caliber, and contour without atherosclerosis or stenosis>] Nonvascular tissues: No mucosal contour abnormality, abnormal enhancement, or asymmetry. Normal salivary and thyroid glands. No lymphadenopathy. There are cervical spine degenerative changes. CTA BRAIN: Distal Internal carotid arteries: Normal course, caliber, and contour without aneurysm or stenosis. There is mild cast right atherosclerosis. [place]: Standard configuration without proximal stenosis or aneurysm. Anterior cerebral arteries: No focal stenosis or aneurysm. Middle cerebral arteries: Mild, nonocclusive right M1 and proximal M2 atherosclerosis without thrombosis or flow limiting stenosis. The left side is unremarkable. Posterior cerebral arteries: Left P2 nonflow limiting atherosclerosis without thrombosis or flow limiting stenosis. The right side is unremarkable. Vertebrobasilar circulation: The intradural vertebral arteries, basilar artery, and all cerebellar branches are patent without focal stenosis or aneurysm. Veins: The major dural venous sinus, cortical and deep cerebral veins are patent. IMPRESSION: 1. Brain CT: No intracranial hemorrhage or early sign of acute cortical ischemia. 2. Brain CTA: No major branch occlusion, flow limiting stenosis, or aneurysm is identified intracranially. There are atherosclerotic changes most evident in the right MCA and left [employer]. 3. Neck CTA: No evidence of hemodynamically significant cervical carotid or vertebral stenosis All quantitative and qualitative assessments of carotid bifurcation and proximal internal carotid artery stenosis are made at referencing the distal internal carotid artery (NASCET criteria). CARDIAC Troponin-I null 0.00 - 02 ENZYMES 0.40 [facility] CHEM PANEL Alk Phos 77 unit/L 39 - 136 06/01 [facility] CHEM PANEL Albumin Lvl 3.0 g/dL 3.5 - 5.0 06/01 [facility] CHEM PANEL ALT 14 unit/L 0 - 65 06/01 [facility] CHEM PANEL AST 13 unit/L 0 - 37 06/01 [facility] CHEM PANEL Total 6.5 g/dL 6.4 - 8.4 06/01 [facility] CHEM PANEL Bili Total 0.4 mg/dL 0.2 - 1.3 06/01 [facility] CHEM PANEL B/C Ratio 13 6 - 25 06/01 [facility] CHEM PANEL Globulin 3.5 g/dL 2.7 - 4.2 06/01 [facility] CHEM PANEL A/G Ratio 0.9 0.7 - 1.6 06/01 [facility] HEMATOLOGY Eosinophils 0.1 K/CMM 0.0 - 0.5 / MH # /2019 [facility] HEMATOLOGY Eosinophils 0.8 % 0.0 - 4.0 06/01 [facility] HEMATOLOGY Monocytes 10.4 % 2.0 - 12.0 06/01 [facility] HEMATOLOGY Lymphocytes 2.7 K/CMM 1.0 - 5.5 06/01 MH # /2019 [facility] HEMATOLOGY Lymphocytes 30.3 % 20.0 - 02 MH 40.0 [facility] HEMATOLOGY Monocytes # 0.9 K/CMM 0.0 - 0.8 06/01 [facility] HEMATOLOGY Neutrophils 5.1 K/CMM 1.5 - 8.1 06/01 MH # /2018 [facility] HEMATOLOGY Basophils 0.4 % 0.0 - 1.0 06/01 [facility] HEMATOLOGY Segs 58.1 % 45.0 - 02 75.0 [facility] HEMATOLOGY PTT 32.9 s 22.9 - 02/ MH 35.8 /2019 [facility] HEMATOLOGY INR 1.08 0.85 - 02 MH 1.17 [facility] HEMATOLOGY PT 13.8 s 12.0 - 06/01 MH 14.7 /2019 [facility] HEMATOLOGY RBC 3.77 M/CMM 4.20 - 02 5.40 /2019 [facility] HEMATOLOGY WBC 8.8 K/CMM 3.7 - 10.4 02 [facility] HEMATOLOGY MCV 92.0 fL 80.0 - 06/01 98.0 /2019 [facility] HEMATOLOGY MCH 31.5 pg 27.0 - 06/01 MH 31.0 /2019 [facility] HEMATOLOGY MCHC 34.3 g/dL 32.0 - 02 MH 36.0 /2019 [facility] HEMATOLOGY Hct 34.7 % 36.0 - 06/01 MH 48.0 /2019 [facility] HEMATOLOGY MPV 7.6 fL 7.4 - 10.4 06/01 [facility] HEMATOLOGY Hgb 11.9 g/dL 12.0 - 06/01 16.0 [facility] HEMATOLOGY Platelet 296 K/CMM 133 - 450 02 [facility] HEMATOLOGY RDW 13.3 % 11.5 - 06/01 14.5 [facility] LIPIDS VLDL 23 02 /2018 [facility] LIPIDS HDL 59 mg/dL >=61 mg/dL 06/01 [facility] LIPIDS LDL 112 mg/dL <=99 mg/dL 06/01 (Calculated) [facility] LIPIDS Trig 115 mg/dL <=149 06/01 mg/dL [facility] LIPIDS Chol 194 mg/dL <=199 06/01 mg/dL /2018 [facility] LIPIDS CHD Risk 3.29 3.90 - 06/01 5.80 /2019 [facility] SPECIAL Hgb A1C 6.1 % <=5.6 % 06/01 CHEMISTRY /2018 [facility] URINE AND UA RBC 1 /HPF 0 - 2 06/01 STOOL [facility] URINE AND UA WBC 4 /HPF 0 - 5 06/01 STOOL [facility] URINE AND UA Nitrite Negative Negative 06/01 STOOL [facility] (05/31/18 9:44 PM) [facility] URINE AND UA <=1.0 0.1 - 1.0 06/01 STOOL Urobilinogen mg/dL [facility] URINE AND UA Ketones Trace Negative 06/01 STOOL [facility] *ABN* [facility] (05/31/18 9:44 PM) URINE AND UA Blood Negative Negative 06/01 STOOL [facility] (05/31/18 9:44 PM) [facility] URINE AND UA Sq Epi Occasional Few /LPF 06/01 STOOL /LPF [facility] URINE AND UA Leuk Est Negative Negative 06/01 [facility] (05/31/18 9:44 PM) [facility] URINE AND UA Bacteria Occasional None Seen 06/01 STOOL /HPF /HPF [facility] URINE AND UA Protein Negative Negative 06/01 [facility] (05/31/18 9:44 PM) [facility] URINE AND UA pH 7.0 5.0 - 8.0 06/01 STOOL [facility] URINE AND UA Turbidity Clear Clear 06/01 [facility] (05/31/18 9:44 PM) [facility] URINE AND UA Spec Grav 1.010 <=1.030 06/01 [facility] URINE AND UA Bili Negative Negative 06/01 [facility] *NA* [facility] (05/31/18 9:44 PM) URINE AND UA Glucose Negative Negative 06/01 [facility] *NA* [facility] (05/31/18 9:44 PM) URINE AND UA Color Straw 06/01 [facility] Brain wo Brain wo EXAM: Brain wo contrast MRI 05/31 - contrast contrast MRI - [facility] MRI [facility] DATE: 05/31/2018 21:03 [employer]. Read by: Melvin Gonzáles MD Dictated Date/time: 05/31/18 23:12 Electronically Signed by: Melvin Gonzáles MD 05/31/18 23:17 FINAL REPORT CLINICAL INDICATION: Patient had transient dysarthria and confusion lasting 1 hour she has a prior history of ischemic strokes please evaluate for any acute ischemic changes. COMPARISON: CT brain from an outside facility on 05/31/2018 at 1305 hours. TECHNIQUE: Multiplanar, multisequence, noncontrast MRI of the brain is performed. IV Contrast: None. FINDINGS: BRAIN No restricted diffusion is identified. The brain parenchyma has normal collado-white junction, sulci, and gyri. There is no extra-axial fluid collection or intraparenchymal hemorrhage. There is generalized volume loss with subsequent passive dilatation of the ventricular system. Scattered T2 hyperintense foci within the periventricular and subcortical white matter are nonspecific, although may represent chronic, small vessel ischemic changes. CEREBELLOPONTINE REGIONS, SELLA, AND SKULL The cerebellopontine angles appear unremarkable. No worrisome skull abnormality is seen. The pituitary gland appears unremarkable. VISIBLE VESSELS Major intracranial flow voids appear preserved. ORBITS, VISIBLE PARANASAL SINUSES/MASTOIDS/CERVICAL SPINE The visible paranasal sinuses are clear. The mastoid air cells are clear. No acute orbital abnormality is identified. Status post bilateral intraocular lens replacements. IMPRESSION: 1. No intracranial hemorrhage, mass, or acute infarct. No acute abnormality. 2. Generalized volume loss and chronic, microvascular ischemia. URINE AND UA Hyal Cast 3 /LPF 0 - 2 05/24 [facility] URINE AND UA Color Yellow Yellow 05/24 *NA* (05/24/18 11:44 AM) URINE AND UA Glucose Negative Negative 05/24 [facility] *NA* (05/24/18 11:44 AM) URINE AND UA Ketones Negative Negative 05/24 [facility] *NA* (05/24/18 11:44 AM) URINE AND UA Bacteria None Seen None Seen 05/24 [facility] (05/24/18 11:44 AM) URINE AND UA Mucus Moderate None Seen 05/24 STOOL /LPF /LPF [facility] URINE AND UA Protein Negative Negative 05/24 [facility] (05/24/18 11:44 AM) URINE AND UA pH 5.0 5.0 - 8.0 05/24 [facility] URINE AND UA Spec Grav 1.017 <=1.030 05/24 [facility] URINE AND UA Turbidity Slight Clear 05/24 [facility] *ABN* (05/24/18 11:44 AM) URINE AND UA RBC 2 /HPF 0 - 2 05/24 [facility] URINE AND UA WBC 4 /HPF 0 - 5 05/24 [facility] URINE AND UA Sq Epi Occasional Few /LPF 05/24 STOOL /LPF [facility] URINE AND Micro? Performed 05/24 [facility] (05/24/18 11:44 AM) URINE AND UA Leuk Est Small Negative 05/24 [facility] *ABN* (05/24/18 11:44 AM) URINE AND UA Nitrite Negative Negative 05/24 [facility] (05/24/18 11:44 AM) URINE AND UA Bili Negative Negative 05/24 STOOL [facility] *NA* (05/24/18 11:44 AM) URINE AND UA Blood Negative Negative 05/24 STOOL [facility] (05/24/18 11:44 AM) URINE AND UA <=1.0 0.1 - 1.0 05/24 STOOL Urobilinogen mg/dL [facility] Culture: <10,000 05/24 Urine CFU/mL /2018 [facility] [place] CHEM PANEL eGFR 47 05/24 Result Comment: The eGFR is calculated using the CKD-EPI formula. In most young, healthy individuals the eGFR will be >90 mL/ min/1.73m2. The eGFR declines with age. An eGFR of 60-89 may be normal in mL/min/1.7 some populations, particularly the elderly, for whom the CKD-EPI formula has not been extensively validated. Use of the eGFR is not recommended in the following populations: [facility] 3m2 Individuals with unstable creatinine concentrations, including patients and those with serious co-morbid conditions. Patients with extremes in muscle mass or diet. The data above are obtained from the National Kidney Disease Education Program (NKDEP) which additionally recommends that when the eGFR is used in patients with extremes of body mass index for purposes of drug dosing, the eGFR should be multiplied by the estimated BMI. CHEM PANEL CO2 27 meq/L 24 - 32 05/24 [facility] CHEM PANEL Calcium Lvl 9.1 mg/dL 8.5 - 10.5 05/24 [facility] CHEM PANEL Sodium Lvl 141 meq/L 135 - 145 05/24 [facility] CHEM PANEL Chloride Lvl 106 meq/L 95 - 109 05/24 [facility] CHEM PANEL Potassium 4.7 meq/L 3.5 - 5.1 05/24 Lvl [facility] CHEM PANEL BUN 20 mg/dL 7 - 22 05/24 [facility] CHEM PANEL Creatinine 1.06 mg/dL 0.50 - 05/24 Lvl 1.40 /2018 [facility] CHEM PANEL Glucose Lvl 93 mg/dL 70 - 99 05/24 [facility] CHEM PANEL AGAP 12.7 meq/L 10.0 - 02 MH 20.0 [facility] HEMATOLOGY Eosinophils 0.1 K/CMM 0.0 - 0.5 05/24 # /2019 [facility] HEMATOLOGY Basophils # 0.1 K/CMM 0.0 - 0.2 05/24 /2018 [facility] HEMATOLOGY Monocytes # 0.7 K/CMM 0.0 - 0.8 05/24 [facility] HEMATOLOGY Basophils 0.9 % 0.0 - 1.0 05/24 /2018 [facility] HEMATOLOGY Eosinophils 1.5 % 0.0 - 4.0 05/24 /2018 [facility] HEMATOLOGY Segs 60.6 % 45.0 - 02/ 75.0 /2018 [facility] HEMATOLOGY Monocytes 9.0 % 2.0 - 12.0 05/24 /2018 [facility] HEMATOLOGY Lymphocytes 28.0 % 20.0 - 02 MH 40.0 /2018 [facility] HEMATOLOGY Lymphocytes 2.2 K/CMM 1.0 - 5.5 05/24 MH # /2018 [facility] HEMATOLOGY Neutrophils 4.7 K/CMM 1.5 - 8.1 05/24 # /2018 [facility] HEMATOLOGY INR 1.04 0.85 - 05/24 1.17 [facility] HEMATOLOGY PT 13.4 s 12.0 - 05/24 14.7 [facility] HEMATOLOGY PTT 33.6 s 22.9 - 05/24 35.8 /2018 [facility] HEMATOLOGY MCH 31.2 pg 27.0 - 02 31.0 /2018 [facility] HEMATOLOGY RBC 4.08 M/CMM 4.20 - 02 5.40 /2018 [facility] HEMATOLOGY Hgb 12.7 g/dL 12.0 - 05/24 16.0 /2018 [facility] HEMATOLOGY Platelet 291 K/CMM 133 - 450 02 [facility] HEMATOLOGY WBC 7.7 K/CMM 3.7 - 10.4 02 /2018 [facility] HEMATOLOGY Hct 37.9 % 36.0 - 05/24 48.0 /2019 [facility] HEMATOLOGY MCV 92.8 fL 80.0 - 02 98.0 /2018 [facility] HEMATOLOGY MPV 7.8 fL 7.4 - 10.4 05/24 [facility] HEMATOLOGY MCHC 33.6 g/dL 32.0 - 02 36.0 [facility] HEMATOLOGY RDW 13.6 % 11.5 - 02/ 14.5 [facility] Vital Signs Vital Sign Value Date Comments Source Temperature Oral (F) 97.9 F 06/07/2018 [facility] Respitory Rate 19 06/07/2018 [facility] Heart Rate 78 06/07/2018 [facility] Systolic (mm Hg) 120 06/07/2018 [facility] Diastolic (mm Hg) 75 06/07/2018 [facility] Systolic (mm Hg) 145 06/07/2018 [facility] Diastolic (mm Hg) 75 06/07/2018 [facility] Respitory Rate 17 06/07/2018 [facility] Heart Rate 77 06/07/2018 [facility] Temperature Oral (F) 97.7 F 06/07/2018 [facility] Respitory Rate 16 06/07/2018 [facility] Systolic (mm Hg) 138 06/07/2018 [facility] Diastolic (mm Hg) 74 06/07/2018 [facility] Heart Rate 77 06/07/2018 [facility] Temperature Oral (F) 98.0 F 06/07/2018 [facility] Height 152.4 cm 06/01/2018 [facility] Weight 65.3 06/01/2018 [facility] BMI Calculated 28.12 06/01/2018 [facility] Systolic (mm Hg) 194 05/27/2018 [facility] Diastolic (mm Hg) 85 05/27/2018 [facility] Systolic (mm Hg) 198 05/27/2018 [facility] Diastolic (mm Hg) 82 05/27/2018 [facility] Systolic (mm Hg) 190 05/27/2018 [facility] Diastolic (mm Hg) 70 05/27/2018 [facility] Respitory Rate 20 05/27/2018 [facility] Heart Rate 57 05/24/2018 [facility] Temperature Oral (F) 97.7 F 05/24/2018 [facility] Respitory Rate 18 05/24/2018 [facility] BMI Calculated 26.76 05/24/2018 [facility] Weight 66.364 05/24/2018 [facility] Height 157.48 cm 05/24/2018 [facility] Encounters Location Location Encounter Encounter Reason Attending ADM DC Status Source Details Type Number For Provider Date Date Visit [id number] Chris 05/27 05/27 [facility] Sharri /2018 [facility] Inpatient [id number] Stephan 06/01 06/07 Diego Flores /2018 [facility] Procedures Procedure Code Date Perfomer Comments Source Spinal cord [id number] No metal [facility] operation<sup>1< [place] /sup> Spinal cord [id number] [facility] operation
[2018-07-18] MEDS ORDERED: NA CHLORIDE 0.9% 500 ML ONE (15:08)
[2018-07-18 15:16] LABS: Protime INR 0.99
[2018-07-18 15:20] LABS: Absolute Lymphocytes (CBC) 2.2 K/uL (0.7-4.9); Absolute Monocytes 0.7 K/uL (0.1-1.3); Absolute Neutrophil 4.7 K/uL (1.8-8.0); Basophils % 0.7 % (0-1.3); Hematocrit 37.5 % (36.0-45.0); Lymphocytes % 28.4 % (15.3-44.8); MPV 8.2 fL (7.6-11.3); Monocytes % 9.3 % (3.3-12.3)
[2018-07-18 15:22] LABS: BUN Blood Urea Nitrogen 19 mg/dL (7-18); Bicarbonate 26 mmol/L (21-32); Glucose Level 88 mg/dL (74-106); Potassium 3.9 mmol/L (3.5-5.1); Sodium Level 142 mmol/L (136-145); Troponin (Emerg Dept Use Only) < 0.02 ng/mL (0.0-0.045)
--- NOTE | 2018-07-18 15:39 | RAD REPORT ---
EXAM DESCRIPTION: RAD - Chest Single View - 07/18/2018 3:04 pm CLINICAL HISTORY: Weakness, tachypnea, shortness of breath COMPARISON: May 31 TECHNIQUE: AP portable chest image was obtained 1437 hours . FINDINGS: No new mass or infiltrate in the lung parenchyma. Patient has prominent chronic interstiti al lung disease. Right hemidiaphragm elevation is again noted. Heart and vasculature are normal. No m easurable pleural effusion and no pneumothorax. No acute bony abnormality seen. No acute aortic findi ngs suspected. IMPRESSION: No acute cardiopulmonary process. Chest findings are similar to comparison.
--- NOTE | 2018-07-18 15:47 | RAD REPORT ---
EXAM DESCRIPTION: CT - Ct Stroke Brain Wo Cont - 07/18/2018 3:37 pm CLINICAL HISTORY: Weakness, aphasia new onset stroke-like symptoms CLINICAL HISTORY: May 31 CT head TECHNIQUE: Axial 5 millimeter thick images of the head were obtained without IV contrast. All CT scans are performed using dose optimization technique as appropriate and may include automated exposure control or mA/KV adjustment according to patient size. FINDINGS: No intracranial hemorrhage, mass, or cerebral edema. No acute infarction identifiable. No cortical edema or sulcal effacement. Patient has moderate severity atrophy and chronic ischemic ramirez e. Ventricles are in proportion to the volume loss. Intracranial findings are similar to comparison. Arterial and physiologic calcifications are present. No globe or orbital content abnormality seen. Visualized portions of the mastoid air cells, paranasal sinuses, and orbits are unremarkable. Images reviewed and findings telephoned to the referring physician 2:58 p.m.. Due to technical factor s, examination was not immediately available in a format that would allow transcribed report at the t melony of the study. IMPRESSION: Prominent atrophy and chronic ischemic change similar to comparison. New No hemorrhage is present. No acute cortical based infarction seen. Chronic ischemic changes can mask nonhemorrhagic acute infarction. MR brain followup can be obtained if there is ongoing concern for acute ischemia.
[2018-07-18 16:24] LABS: Urine Bacteria <20 /HPF (<20); Urine Culture Reflex Order REFLEXED; Urine RBC <5 /HPF (NONE SEEN)
[2018-07-18 16:26] LABS: Urine Blood TRACE (NEG); Urine Glucose NEGATIVE (NEG); Urine Protein TRACE (NEG)
--- NOTE | 2018-07-18 16:36 | EDPHYS ---
Physician Documentation [facility] Name: Itzel Nunez Age: 87 yrs Sex: Female : 1930 Arrival Date: 07/18/2018 Time: 14:06 Bed 15 Private MD: ED Physician Corey Gonzales HPI: 07/18 14:59 This 87 yrs old Female presents to ER via EMS with complaints of General rn Weakness. 14:59 The patient presents with general weakness, trouble speaking. Onset: The rn symptoms/episode began/occurred at 09:00. Possible causes: unknown. Current symptoms: In the emergency department the patient's symptoms have improved. The patient has experienced a previous episode. The patient has not recently seen a physician. Reports around 0900 today, felt generalized weakness, slid down in bed, no head injury, reports trouble getting up, family found her around 1100, family noticed some trouble speaking that has now improved but not back to baseline. Denies LOC or head trauma. + headache. . Historical: - Allergies: 14:12 No Known Allergies; ph - Home Meds: 14:12 Hyzaar Oral [Active]; Metoprolol Tartrate Oral [Active]; Tramadol Oral for Chronic pain ph [Active]; - PMHx: 14:12 Back pain; High Cholesterol; Hypertension; TIA; ph - Immunization history:: Adult Immunizations unknown. - Social history:: Smoking status: Patient/guardian denies using tobacco. - Ebola Screening: : No symptoms or risks identified at this time. - Family history:: not pertinent. - Hospitalizations: : No recent hospitalization is reported. ROS: 14:59 Constitutional: Negative for fever, chills, and weight loss, Eyes: Negative for injury, rn pain, redness, and discharge, Neck: Negative for injury, pain, and swelling, Cardiovascular: Negative for chest pain, palpitations, and edema, Respiratory: Negative for shortness of breath, cough, wheezing, and pleuritic chest pain, Abdomen/GI: Negative for abdominal pain, nausea, vomiting, diarrhea, and constipation, MS/Extremity: Negative for injury and deformity, Skin: Negative for injury, rash, and discoloration, Neuro: Negative for numbness, tingling, and seizure. Exam: 14:59 Constitutional: This is a well developed, well nourished patient who is awake, alert, rn and in no acute distress. Head/Face: Normocephalic, atraumatic. Eyes: Pupils equal round and reactive to light, extra-ocular motions intact. Lids and lashes normal. Conjunctiva and sclera are non-icteric and not injected. Cornea within normal limits. Periorbital areas with no swelling, redness, or edema. ENT: MMM Cardiovascular: Regular rate and rhythm, No pulse deficits. Respiratory: Lungs have equal breath sounds bilaterally, clear to auscultation. No increased work of breathing, no retractions or nasal flaring. Abdomen/GI: soft, non-tender Skin: Warm, dry, no cellulitis. MS/ Extremity: Pulses equal, no cyanosis. Neurovascular intact. Full, normal range of motion. Equal circumference. Neuro: Awake and alert, GCS 15, oriented to person, place, and situation. Cranial nerves II-XII grossly intact. + trouble with word findings, seems frustrated when speaking. Motor strength 5/5 in all extremities. Sensory grossly intact. Vital Signs: 14:10 BP 181 / 96; Pulse 87; Resp 18; Temp 97.8; Pulse Ox 95% on R/A; ph 15:20 BP 195 / 97; Pulse 90; Resp 16; Pulse Ox 95% on R/A; ph 16:18 BP 189 / 95; Pulse 101; Resp 20; Pulse Ox 96% on R/A; ph 17:15 BP 149 / 95 (art line/); Pulse 113; Resp 18; Pulse Ox 96% on R/A; ph 18:30 BP 199 / 72; Pulse 92; Resp 16; Pulse Ox 96% on R/A; ph 19:07 BP 153 / 73; Pulse 92; Resp 16; Pulse Ox 95% on R/A; ph 19:53 BP 155 / 77; Pulse 89; Resp 18; Temp 98.0; Pulse Ox 97% on R/A; ph MDM: 14:08 Patient medically screened. rn 14:32 ED course: Pt states thinks slid out of bed around 0900, reports trouble speaking since rn then, family found her around 1100. + hx of TIA.. 14:58 ED course: CT head no acute findings per Dr. Johnson. . rn 16:04 Differential Diagnosis: CVA, electrolyte abnormality, hypoglycemia, intracranial bleed, rn pneumonia, TIA, UTI, volume depletion. Data reviewed: vital signs, nurses notes, lab test result(s), EKG, radiologic studies, CT scan, plain films, and as a result, I will admit patient. 16:20 Counseling: I had a detailed discussion with the patient and/or guardian regarding: the rn historical points, exam findings, and any diagnostic results supporting the discharge/admit diagnosis, lab results, radiology results, the need for further work-up and treatment in the hospital. Admission orders: after a detailed discussion of the patient's condition and case, the admit orders are written by me. ED course: Spoke with April Draper, will admit and requests MRI in AM. . 07/18 14:23 Order name: Troponin (emerg Dept Use Only); Complete Time: 15:47 07/18 14:23 Order name: Basic Metabolic Panel; Complete Time: 15:47 07/18 14:23 Order name: CBC with Diff; Complete Time: 15:47 07/18 14:23 Order name: Protime (+inr); Complete Time: 15:47 07/18 14:23 Order name: Ptt, Activated; Complete Time: 15:47 07/18 14:24 Order name: Urine Microscopic Only; Complete Time: 16:36 07/18 14:23 Order name: CT Stroke Brain w/o Contrast; Complete Time: 15:47 07/18 14:23 Order name: Stroke CXR 1 View; Complete Time: 15:47 07/18 15:57 Order name: Urine Dipstick--Ancillary (enter results) 07/18 15:58 Order name: Urine Dipstick-Ancillary; Complete Time: 16:36 [facility] 07/18 16:25 Order name: Urine Culture [facility] 07/18 14:23 Order name: IV Start; Complete Time: 15:30 07/18 14:23 Order name: EKG; Complete Time: 14:24 07/18 14:23 Order name: Accucheck; Complete Time: 15:28 07/18 14:23 Order name: Cardiac monitoring; Complete Time: 15:28 07/18 14:23 Order name: EKG - Nurse/Tech; Complete Time: 15:28 07/18 14:23 Order name: Labs collected and sent; Complete Time: 15:28 rn 07/18 14:23 Order name: NPO; Complete Time: 15:29 rn 07/18 14:23 Order name: O2 Per Protocol; Complete Time: 15:29 rn 07/18 14:23 Order name: O2 Sat Monitoring; Complete Time: 15:29 rn 07/18 14:23 Order name: Stroke Swallow Screen; Complete Time: 15:29 rn 07/18 14:24 Order name: Urine Dipstick-Ancillary (obtain specimen); Complete Time: 16:06 rn Administered Medications: 15:05 Drug: NS 0.9% 250 ml Route: IV; Rate: 1 bolus; Site: left antecubital; ph 16:06 Follow up: Response: No adverse reaction; IV Status: Completed infusion ph 17:55 Drug: Metoprolol 25 mg Route: PO; ph 18:58 Follow up: Response: No adverse reaction ph 17:56 Drug: Aspirin Chewable Tablet 324 mg Route: PO; ph 18:58 Follow up: Response: No adverse reaction ph Disposition: 07/18/18 16:36 Hospitalization ordered by Grabiel Draper for Inpatient Admission. Preliminary diagnosis are Aphasia, Transient cerebral ischemic attack, unspecified. - Bed requested for Telemetry/MedSurg (Inpatient). - Status is Inpatient Admission. ea - Condition is Stable. - Problem is new. - Symptoms are unchanged. UTI on Admission? No Signatures: Dispatcher [employer] Joan Ortiz RN RN dw Nieto, Roman, MD MD rn Hall, Patricia, RN RN ph Antunez, Elena, RN RN Corrections: (The following items were deleted from the chart) 18:39 16:36 Hospitalization Ordered by Grabiel Draper MD for Inpatient Admission. Preliminary dw diagnosis is Aphasia; Transient cerebral ischemic attack, unspecified. Bed requested for Telemetry/MedSurg (Inpatient). Status is Inpatient Admission. Condition is Stable. Problem is new. Symptoms are unchanged. UTI on Admission? No. rn 20:07 18:39 07/18/2018 16:36 Hospitalization Ordered by Grabiel Draper MD for Inpatient ea Admission. Preliminary diagnosis is Aphasia; Transient cerebral ischemic attack, unspecified. Bed requested for Telemetry/MedSurg (Inpatient). Status is Inpatient Admission. Condition is Stable. Problem is new. Symptoms are unchanged. UTI on Admission? No. dw
--- NOTE | 2018-07-18 16:36 | ER ---
Nurse's Notes [facility] Name: Itzel Nunez Age: 87 yrs Sex: Female : 1930 Arrival Date: 07/18/2018 Time: 14:06 Bed 15 Private MD: Diagnosis: Aphasia;Transient cerebral ischemic attack, unspecified Presentation: 07/18 14:06 Presenting complaint: EMS states: Pt reports that she slid from bed at approx 0900 this ph morning, found on floor by bed at approx 1100 by family who reported that pt had "garbled speech" and seemed confused, pt A\\T\\O x 4 w/ clear speech upon EMS arrival, pt denies pain or injury r/t fall, BGL 121, pt c/o pain to lower back but reports hx of chronic back pain, also hypertensive at 180s/100s and is c/o headache but states that she did not take BP medication this morning. Transition of care: patient was not received from another setting of care. Onset of symptoms was July 18, 2018. Risk Assessment: Do you want to hurt yourself or someone else? Patient reports no desire to harm self or others. Initial Sepsis Screen: Does the patient meet any 2 criteria? No. Patient's initial sepsis screen is negative. Does the patient have a suspected source of infection? No. Patient's initial sepsis screen is negative. Care prior to arrival: None. 14:06 Method Of Arrival: EMS: [facility] 14:06 Acuity: BRENDAN 3 ph Historical: - Allergies: 14:12 No Known Allergies; ph - Home Meds: 14:12 Hyzaar Oral [Active]; Metoprolol Tartrate Oral [Active]; Tramadol Oral for Chronic pain ph [Active]; - PMHx: 14:12 Back pain; High Cholesterol; Hypertension; TIA; ph - Immunization history:: Adult Immunizations unknown. - Social history:: Smoking status: Patient/guardian denies using tobacco. - Ebola Screening: : No symptoms or risks identified at this time. - Family history:: not pertinent. - Hospitalizations: : No recent hospitalization is reported. Screenin:12 Abuse screen: Denies threats or abuse. Denies injuries from another. Nutritional ph screening: No deficits noted. Tuberculosis screening: No symptoms or risk factors identified. Fall Risk Fall in past 12 months (25 points). No secondary diagnosis (0 pts). IV access (20 points). Ambulatory Aid- None/Bed Rest/Nurse Assist (0 pts). Gait- Weak (10 pts.). Mental Status- Oriented to own ability (0 pts). Total [place] Fall Scale indicates High Risk Score (45 or more points). Fall prevention measures have been instituted. Side Rails Up X 2 Placed Close to Nursing Station Frequent Obs/Assessments Occuring Family Present and informed to notify staff if the need to leave the bedside As available patient and family educated on Fall Prevention Program and Strategies. Assessment: 14:30 General: Appears in no apparent distress. comfortable, well groomed, Behavior is calm, ph cooperative, appropriate for age. Pain: Complains of pain in lumbar area. Neuro: Level of Consciousness is awake, alert, obeys commands, Oriented to person, place, time, situation, Hot Roll Inspector are equal bilaterally Moves all extremities. Facial symmetry appears normal, Facial symmetry: tongue is midline, Pupils are PERRLA, Reports headache weakness in "all over". Cardiovascular: Capillary refill < 3 seconds in bilateral fingers Patient's skin is warm and dry. Respiratory: Airway is patent Respiratory effort is even, unlabored, Respiratory pattern is regular, symmetrical. GI: No signs and/or symptoms were reported involving the gastrointestinal system. Patient currently denies abdominal pain, nausea, vomiting. : Denies burning with urination, urinary frequency. Derm: Skin is fragile, is thin, Skin is pink, warm \\T\\ dry. Rash noted that is red, raised, vesicular, on right supraclavicular area and right clavicle. Musculoskeletal: Circulation, motion, and sensation intact. Range of motion: intact in all extremities. 15:54 Reassessment: Patient appears in no apparent distress at this time. Patient and/or ph family updated on plan of care and expected duration. Pain level reassessed. Patient is alert, oriented x 3, equal unlabored respirations, skin warm/dry/pink. ERP at bedside to speak w/ pt and family. 16:00 Reassessment: Patient appears in no apparent distress at this time. Patient and/or ph family updated on plan of care and expected duration. Pain level reassessed. Patient is alert, oriented x 3, equal unlabored respirations, skin warm/dry/pink. Pt assisted onto bedside commode, very unsteady and unbalanced when placing pt back in bed. 17:45 Reassessment: Patient appears in no apparent distress at this time. Patient and/or ph family updated on plan of care and expected duration. Pain level reassessed. Patient is alert, oriented x 3, equal unlabored respirations, skin warm/dry/pink. Pt resting quietly, daughter at bedside, awaiting room assignment. 18:54 Reassessment: Patient appears in no apparent distress at this time. No changes from ph previously documented assessment. Patient and/or family updated on plan of care and expected duration. Pain level reassessed. Patient is alert, oriented x 3, equal unlabored respirations, skin warm/dry/pink. 19:00 General: Appears in no apparent distress. Behavior is calm, cooperative, appropriate ph for age. Pain: Denies pain. Neuro: Level of Consciousness is awake, alert, obeys commands, Oriented to person, place, time, situation. Cardiovascular: Patient's skin is warm and dry. Respiratory: Airway is patent Respiratory effort is even, unlabored, Respiratory pattern is regular, symmetrical. Derm: Skin is pink, warm \\T\\ dry. Musculoskeletal: Circulation, motion, and sensation intact. 20:04 Reassessment: Report called to Ulysses on fourth floor. Pt admitted to fourth floor, ph taken via stretcher per tech accompanied by daughter. Pt tolerating well. Vital Signs: 14:10 BP 181 / 96; Pulse 87; Resp 18; Temp 97.8; Pulse Ox 95% on R/A; ph 15:20 BP 195 / 97; Pulse 90; Resp 16; Pulse Ox 95% on R/A; ph 16:18 BP 189 / 95; Pulse 101; Resp 20; Pulse Ox 96% on R/A; ph 17:15 BP 149 / 95 (art line/); Pulse 113; Resp 18; Pulse Ox 96% on R/A; ph 18:30 BP 199 / 72; Pulse 92; Resp 16; Pulse Ox 96% on R/A; ph 19:07 BP 153 / 73; Pulse 92; Resp 16; Pulse Ox 95% on R/A; ph 19:53 BP 155 / 77; Pulse 89; Resp 18; Temp 98.0; Pulse Ox 97% on R/A; ph ED Course: 13:30 Maintain EMS IV. Dressing intact. Good blood return noted. Site clean \\T\\ dry. Gauge \\T\\ ph site: 20 LAC. 14:06 Patient arrived in ED. ph 14:08 Corey Gonzales MD is Attending Physician. rn 14:10 Triage completed. ph 14:12 Arm band placed on Patient placed in an exam room, on a stretcher. ph 14:13 Patient has correct armband on for positive identification. Placed in gown. Bed in low ph position. Call light in reach. Side rails up X2. monitoring and evaluation advisor on. Pulse ox on. NIBP on. Door closed. Noise minimized. Warm blanket given. Pillow given. 14:52 Samira Wells, RN is Primary Nurse. ph 14:52 CT completed. Patient tolerated procedure well. Patient moved back from CT. bq 15:04 Stroke CXR 1 View In Process Unspecified. EDMS 15:37 CT Stroke Brain w/o Contrast In Process Unspecified. EDMS 16:03 Assist provider with bone marrow aspiration. ph 16:35 Grabiel Draper MD is Hospitalizing Provider. rn 19:53 Patient admitted, IV remains in place. ph Administered Medications: 15:05 Drug: NS 0.9% 250 ml Route: IV; Rate: 1 bolus; Site: left antecubital; ph 16:06 Follow up: Response: No adverse reaction; IV Status: Completed infusion ph 17:55 Drug: Metoprolol 25 mg Route: PO; ph 18:58 Follow up: Response: No adverse reaction ph 17:56 Drug: Aspirin Chewable Tablet 324 mg Route: PO; ph 18:58 Follow up: Response: No adverse reaction ph Outcome: 16:36 Decision to Hospitalize by Provider. rn 19:52 Admitted to Med/surg accompanied by tech, room 403, on monitor, Report called to Ulysses swanson RN 19:52 Condition: stable 19:52 Instructed on the need for admit. 20:07 Patient left the ED. ea Signatures: Dispatcher [employer] EDSujey Earl Roman, MD MD rn Hall, Patricia, RN RN ph Antunez, Elena, RN RN ea
[2018-07-18] MEDS ORDERED: METOPROLOL TAR 25 MG TAB ONE (17:49)
[2018-07-18] MEDS ORDERED: ASPIRIN 81 MG CHEWABLE TABLET ONE (17:49)
[2018-07-18] MEDS ORDERED: TRAMADOL HCL 50 MG TAB PO PRN (20:36)
[2018-07-18] MEDS ORDERED: MAGNES/ALUMIN/SIMET 30ML UCUP PO PRN (20:36)
[2018-07-18] MEDS: METOPROLOL TAR 50 MG TAB PO SCH (21:00)
[2018-07-18] MEDS: TRAZODONE 50 MG TABLET PO SCH (21:00)
[2018-07-18] MEDS: NA CHLORIDE 0.9% 1,000 ML IV SCH (21:34)
[2018-07-18] MEDS: LOSARTAN/HCTZ 50-12.5 PO SCH (23:17)
[2018-07-18] MEDS: DULOXETINE 30 MG CAP PO SCH (23:19)
[2018-07-19] MEDS: PANTOPRAZOLE 40MG TABLET PO SCH (06:07)
[2018-07-19] MEDS ORDERED: PNEUMOCOCCAL VACCINE 0.5 ML IMVAC ONE (08:00)
[2018-07-19] MEDS ORDERED: INFLUENZA VACCINE (for 3y+) 0.5 ML DOSE IMVAC ONE (08:00)
[2018-07-19] MEDS: DULOXETINE 30 MG CAP PO SCH ×3 (09:05→21:04)
[2018-07-19] MEDS: ENOXAPARIN 30 MG/0.3 ML SQ SCH (09:05)
[2018-07-19] MEDS: LOSARTAN/HCTZ 50-12.5 PO SCH ×3 (09:05→21:07)
[2018-07-19] MEDS: METOPROLOL TAR 50 MG TAB PO SCH ×3 (09:09→21:05)
[2018-07-19] MEDS: AMLODIPINE 5 MG TAB PO SCH (09:09)
[2018-07-19] MEDS: ASPIRIN EC 81 MG TAB PO SCH (09:10)
[2018-07-19] MEDS: CALCITONIN NASAL SPRAY 200 IU/DOSE NAS SCH (09:19)
[2018-07-19] MEDS: NA CHLORIDE 0.9% 1,000 ML IV SCH ×2 (09:19→23:02)
--- NOTE | 2018-07-19 11:19 | RAD REPORT ---
EXAM DESCRIPTION: MRI - Brain W/Wo Cont - 07/19/2018 11:09 am CLINICAL HISTORY: aphasia, weaknes CVA symptomology COMPARISON: MRA Head Wo Cont dated 07/19/2018; MRI BRAIN WITHOUT CONTRAST dated 03/07/2010; Ct Stroke Brain Wo Cont dated 07/18/2018; Ct Stroke Brain Wo Cont dated 05/31/2018 TECHNIQUE: Multi-sequence, multiplanar MR imaging of the brain was performed with contrast. FINDINGS: No intracranial hemorrhage, hydrocephalus, or extra-axial fluid collection.Moderate brain atrophy is present. Moderate confluent T2/FLAIR hyperintensity in the periventricular and deep white matter is present compatible with chronic microvascular ischemic changes. No edema or shift of midlin e structures. No intracranial mass. DWI is negative for acute CVA. The midline structures are normally formed. Mastoid air cells and paranasal sinuses are clear. Post-contrast images show no abnormal enhancement to suggest tumor or infection. The post-contrast se quences are mildly motion degraded. IMPRESSION: Negative for acute CVA or other acute intracranial abnormality.
--- NOTE | 2018-07-19 11:26 | RAD REPORT ---
EXAM DESCRIPTION: MRI - MRA Head Wo Cont - 07/19/2018 11:09 am CLINICAL HISTORY: aphasia, weakness CVA COMPARISON: Ct Stroke Brain Wo Cont dated 07/18/2018 FINDINGS: 3D noncontrast [id number] MR angiography of the [place] of [place] was performed. No aneurysm, flow-limiting stenosis or vascular malformation is seen. Forward flow seen in codominant vertebral arteries. The visualized dural venous sinuses appear patent. IMPRESSION: No significant flow abnormality of the [place] of [place] is identified.
--- NOTE | 2018-07-19 11:45 | RAD REPORT ---
EXAM DESCRIPTION: MRI - MRA Neck W/Wo Cont - 07/19/2018 11:09 am CLINICAL HISTORY: aphasia, weaknes CVA symptomology COMPARISON: No comparisons FINDINGS: Contrast enhance 2D [id number] MR angiography of the neck vessels was performed. A left aortic arch is seen with normal great vessel branching pattern. Both common carotid arteries a nd subclavian arteries are widely patent. Both common carotid arteries are widely patent. No significant internal carotid artery stenosis seen. Forward flow is seen in both vertebral arteries. IMPRESSION: No significant flow abnormality of the neck vessels identified.
[2018-07-19] MEDS: TRAZODONE 50 MG TABLET PO SCH ×2 (21:00→21:04)
--- NOTE | 2018-07-20 04:42 | HP ---
Date of Admission: 07/19/2018 Chief Complaint: Feeling weak and difficulty with speech. History Of Present Illness: An 87-year-old female patient, who had TIA about a month ago, and at that time, she was admitted to [facility] in [place]. The patient takes her medications regularly and she lives at home by herself. Her daughter lives close by, and says yesterday morning, she was in the bed, her daughter went to her house to do some things and when the patient' s daughter came back to the patient's house, she found out that the patient was on the floor and had some difficulty with speech and was weak and confused. The patient was brought to the emergency room. After she was evaluated in the ER, she was admitted to the hospital. CAT scan of the brain was done in the ER , it was negative for any acute stroke. When I saw her this morning, her speech was back to normal. No focal weakness or neurological deficit noted. Denies any head injury or headache. No fever, nausea, vomiting, or diarrhea lately. Allergies: NO KNOWN ALLERGIES. Medications: List reviewed. Review of Systems: RECREATION CENTER DIRECTOR: As mentioned above. CONSTITUTIONAL: As mentioned above. All other systems reviewed and negative. Past Surgical History: Tonsillectomy and kyphoplasty. Family History: Prostate cancer and hypertension. Social History: Negative for smoking or alcohol use. Past Medical History: Hypertension; TIA; mixed hyperlipidemia; osteoarthritis at multiple sites; osteoporosis; chronic kidney disease, stage III; diverticulosis; compression fracture of spine; gastroesophageal reflux disease and depression. Physical Examination: Vital Signs: Temperature 98.1, pulse 76, respiratory rate 16, blood pressure 193/100, and oxygen saturation 94%. Height 5 feet. Weight 136 pounds. General: Awake, alert, oriented, not in distress. HEENT: Head atraumatic, normocephalic. Conjunctivae nonerythematous. Sclerae white. Mouth, no thrush or edema noted. Ears/Nose, no mass, lesion, discharge noted. Neck: Supple. No JVD, lymph nodes, bruit, thyromegaly noted. Lungs: Bilateral good equal air entry. Clear to auscultation. No rhonchi. No rales. Heart: Normal heart sounds, no murmur or gallop. Abdomen: Soft, bowel sounds normal. No guarding, rigidity, tenderness, mass, hepatosplenomegaly, distention, or bruit noted. Extremities: No leg edema. No calf tenderness. Skin: No rash, ulcer, cellulitis. Lymphatics: No lymph node enlargement in neck, supraclavicular, infraclavicular region. Neuro: No focal neurological deficit. Chest: Unremarkable. External Genitalia: Deferred. Rectal: Deferred. Laboratory Data: White count 7.7, hemoglobin 12.8, and platelets 286. Sodium 142, potassium 3.9, chloride 109, bicarb 26, BUN 19, creatinine 0.92, and glucose 88. Triglycerides 125, cholesterol 82, HDL 97, and LDL 60. Urinalysis negative except trace leukocyte esterase. Impression: 1. Transient ischemic attack. 2. Hypertension. 3. Mixed hyperlipidemia. 4. Osteoarthritis, multiple sites. 5. Osteoporosis. 6. Diverticulosis. 7. Gastroesophageal reflux disease. 8. Depression. Plan: Admit the patient to hospital for further evaluation and management of this problem. MRI of the brain was done today per stroke protocol, which came back negative for any acute stroke. We will consult Physical Therapy and home medications will be continued per order. We will go ahead and consider to add Plavix 75 mg daily and depending on the patient's condition tomorrow, we will decide about the discharge planning. At home, the patient takes aspirin everyday 81 mg daily, so we will consider adding Plavix starting tomorrow. Details and plan of treatment discussed with the patient. I will see her tomorrow for followup. We will continue antihypertensive medication. Blood pressure was elevated this morning, but once we get her blood pressure medication on schedule, we will decide whether we need to make any adjustment on medication or not. The patient takes Livalo at home and she has tolerated that very well, but in the past, multiple other statin medications were not tolerated by her. RAMONA/VIJAY Voice ID: [id number]
[2018-07-20] MEDS: PANTOPRAZOLE 40MG TABLET PO SCH (06:30)
[2018-07-20] MEDS: ENOXAPARIN 30 MG/0.3 ML SQ SCH (09:00)
[2018-07-20] MEDS: AMLODIPINE 5 MG TAB PO SCH (09:00)
[2018-07-20] MEDS: ASPIRIN EC 81 MG TAB PO SCH (09:00)
[2018-07-20] MEDS: LOSARTAN/HCTZ 50-12.5 PO SCH (09:00)
[2018-07-20] MEDS: DULOXETINE 30 MG CAP PO SCH (09:00)
[2018-07-20] MEDS: CALCITONIN NASAL SPRAY 200 IU/DOSE NAS SCH (09:00)
[2018-07-20] MEDS: METOPROLOL TAR 50 MG TAB PO SCH (09:00)
[2018-07-20] MEDS: NA CHLORIDE 0.9% 1,000 ML IV SCH (12:22)
--- NOTE | 2018-07-21 07:07 | DS ---
Date of Discharge: 07/20/2018 Disposition: Discharged to go home. Physical Examination: HEENT: Unremarkable. Lungs: Clear to auscultation. Heart: Sounds normal. Abdomen: Soft. Bowel sounds normal. No guarding, rigidity, tenderness, or distention. Extremities: No leg edema. Laboratory Data: Labs done during this hospitalization, white count 7.7, hemoglobin 12.8, platelets 287. Sodium 142, potassium 3.9, chloride 109, bicarb 26, BUN 19, creatinine 0.92, glucose 88. Hospital Course: An 87-year-old female patient living at home, was brought into emergency room with complaints of feeling weak and difficulty with her speech. Please see dictated H and P for more info rmation. We were concerned about possibility of stroke, so she was admitted to the hospital. CAT sc an of the head was negative. MRI of the brain was done, which came back negative for any acute strok e. Patient's neurological symptoms that she had with slurred speech actually resolved. She did not have any further neurological deficit or neurological symptoms. Yesterday when I saw her, she was an swering all the questions appropriately. Awake, alert, oriented like her normal self. No confusion at all. This morning when I saw her, her daughter was present with her and there was obvious change that she was confused this morning and this is different compared to yesterday. Patient's daughter i nformed me that when she was in the hospital in [place], she had similar problem with confusion and t hat got better after she came home. We strongly believe that her confusion will improve more likely if she is at home versus being in the hospital. There is no need for ongoing hospitalization and we believe that she will make better recovery at home as far as her mental status is concerned with this confusion problem, which is likely due to delirium from being in the hospital, not getting enough sl eep, changes of environment, etc. There is a possibility that she may have a mild case of urinary tr act infection. She has some low-grade fever, which was noted this morning. Her urinalysis results r eviewed, urine culture results reviewed and we will initiate oral antibiotics therapy upon discharge. Also recommended home health and home physical therapy and patient's daughter will make sure that p joshua is not left alone to start with and she will provide care to her at her house and as her condi tion improves, then she may withdraw out that extra care that she may need right now, but I have lexi mmended 24-hour care at home. Final Diagnoses: 1.Transient ischemic attack. 2.Urinary tract infection. 3.Hypertension. 4.Mixed hyperlipidemia. 5.Osteoarthritis, multiple sites. 6.Osteoporosis. 7.Diverticulosis. 8.Gastroesophageal reflux disease. 9.Depression. Discharge Medications And Instructions: 1.Continue all prior home medications. 2.Add clopidogrel 75 mg p.o. daily and Cipro as prescribed for 1 week. 3.Follow up at my office per scheduled appointment this month. 4.Social Service was consulted to help arrange for home health care, home physical therapy. RAMONA/MODL Voice ID: [id number] Report ID: [id number]
== END 2018-07-20 13:35 | disposition home health service (06) ==
LOC: ER 14:02 → INTOOBSV 16:38 → ERHOLD 16:38 → 4TH 19:59
PROVIDERS: ADMIT Internal Medicine; ATTEND Internal Medicine
DX: G45.9 Transient cerebral ischemic attack, unspecified (principal); N39.0 Urinary tract infection, site not specified; I10 Essential (primary) hypertension; E78.2 Mixed hyperlipidemia; M19.90 Unspecified osteoarthritis, unspecified site; M81.0 Age-related osteoporosis without current pathological fracture; K57.90 Diverticulosis of intestine, part unspecified, without perforation or abscess without bleeding; K21.9 Gastro-esophageal reflux disease without esophagitis; F32.9 Major depressive disorder, single episode, unspecified
CPT/HCPCS: 96365; 87088; 85025; 87086; 80048; 36415; 85610; 80061; 85730; 84484; 70450; 71045; 70553; 70544; 70549; 97116; 97163; 97530; 99285; A9577; J1650; J7030 ×2; G0378 ×2; 81003; 81015

== ENCOUNTER 2018-07-30 18:02 | Emergency (ER) | payer OTHER ==
--- OUTSIDE RECORDS SUMMARY | 2018-07-30 18:06 | XMS REPORT | Continuity of Care Document ---
:1930 Author Organization Interface Problems Problem Status Onset Classification Date Comments Source Date Reported TIA Active 05/31/[address] SPINE KYPHOPLASTY Active 04/30/19 [place] [id number] Anxiety and Active Problem 06/09/2018 [facility] depression [facility] GERD (<span Active Problem 06/09/2018 [facility] ID="[id number]" [facility] >Confirmed</span> [facility] ) Osteoarthritis Active Problem 06/09/2018 [facility] Osteoporosis Active Problem 06/09/2018 [facility] ILLNESS, Active [facility] UNSPECIFIED [facility] Medications Medication Details Route Status Patient Ordering Order Source Instructions Provider Date Ambien 5 mg, 1 tab, Inactive Route: PO, 2018 [facility] Drug form: [place] TAB, Bedtime, Dosing Weight 65.3, kg, Start date: 06/07/18 21:00:00 DRAUGHTSMAN, Duration: 30 day, Stop date: 07/06/18 21:00:00 CDTNotes: (Same As: Ambien) Melatonin 3 MG 3 mg, 1 tab, No Longer Extended Release Route: PO, Active 2018 [facility] Tablet Drug Form: [place] TAB, Dosing Weight 65.3, kg, Bedtime, Start date: 06/06/18 21:00:00 DRAUGHTSMAN, Duration: 30 day, Stop date: 07/05/18 21:00:00 CDTNotes: (Same as: Melatonin) losartan 100 mg 100 mg=1 tab, Active oral tablet PO, Daily, # 2019 [facility], 0 City Refill(s), Pharmacy: [facility]/pharmacy #[id number] amLODIPine 5 mg 7.5 mg=1.5 Active oral tablet tab, PO, 2019 [facility] Daily, # 45 City tab, 0 Refill(s), Pharmacy: [facility]/pharmacy #[id number] atorvastatin 40 mg 40 mg=1 tab, Active oral tablet PO, Bedtime, # 2019 [facility] 30 tab, 0 City Refill(s), Pharmacy: [facility]/pharmacy #[id number] Aspirin 81 MG 81 mg=1 tab, Active Enteric Coated PO, Daily, 0 2018 [facility] Tablet Refill(s) [facility] Amlodipine 7.5 mg, 1.5 No Longer tab, Route: Active 2018 [facility] PO, Drug form: [place]oss[place] TAB, Daily, Dosing Weight 65.3, kg, Start date: 06/04/18 9:00:00 DRAUGHTSMAN, Duration: 30 day, Stop date: 07/03/18 9:00:00 CDTNotes: (Same as: Norvasc) Aspirin 81 mg, 1 tab, No Longer Route: PO, 2018 [facility] Drug form: [facility] ECTAB, Daily, Dosing Weight 65.3, kg, Start date: 06/04/18 9:00:00 DRAUGHTSMAN, Duration: 30 day, Stop date: 07/03/18 9:00:00 CDTNotes: Do not crush or chew. (Same As: Ecotrin) duloxetine 30 mg, 1 cap, No Longer Route: PO, 2018 [facility] Drug form: [facility] DRC, BID, Dosing Weight 65.3, kg, Start date: 06/03/18 9:44:00 DRAUGHTSMAN, Duration: 30 day, Stop date: 07/03/18 9:00:00 CDTNotes: (Same as: Cymbalta) (Do Not Crush) Citalopram 20 mg, 1 tab, No Longer Route: PO, 2018 [facility] Drug form: [facility] TAB, Daily, Dosing Weight 65.3, kg, Start date: 06/03/18 9:44:00 DRAUGHTSMAN, Duration: 30 day, Stop date: 07/03/18 9:00:00 CDTNotes: (Same As: CeleXA) metoprolol 50 mg, 1 tab, No Longer tartrate Route: PO, Active 2018 [facility] Drug form: [facility] TAB, Q12H, Dosing Weight 65.3, kg, Priority: NOW, Start date: 06/03/18 9:40:00 DRAUGHTSMAN, Duration: 30 day, Stop date: 07/03/18 9:00:00 CDTNotes: (Same as: Lopressor) Metoprolol 5 mg, 5 mL, No Longer Route: IV, Active 2018 [facility] Drug form: [facility] INJ, ONCE, Dosing Weight 65.3, kg, Start date: 06/02/18 23:40:00 DRAUGHTSMAN, Stop date: 06/02/18 23:40:00 CSTNotes: (Same as: Lopressor) Push over 2 minutes normal saline 0.9% 1,000 mL, No Longer IV 1,000 mL Rate: 90 Active 2019 [facility] ml/hr, Infuse [facility] over: 11.1 hr, Route: IV, Dosing Weight 65.3 kg, Total Volume: 1,000, Start date: 06/02/18 15:27:00 DRAUGHTSMAN, Duration: 1 day, Stop date: 06/03/18 15:26:00 DRAUGHTSMAN, 1.69, m2 Magnesium Sulfate 2 gm, 50 mL, Inactive Route: IVPB, 2018 [facility] Drug form: [facility] INJ, ONCE, Dosing Weight 65.3, kg, Start date: 06/02/18 9:34:00 DRAUGHTSMAN, Stop date: 06/02/18 9:34:00 CSTNotes: WASTE: F/P - Sink; E - [facility]ash [facility] Potassium Chloride 40 mEq, 2 tab, Inactive Route: PO, 2018 [facility] Drug form: [facility] ERTAB, ONCE, Dosing Weight 65.3, kg, Start date: 06/02/18 5:24:00 DRAUGHTSMAN, Stop date: 06/02/18 5:24:00 CSTNotes: (Same as: K-Dur 20) "Do Not Crush" Give with food and full glass of water For patients unable to swallow tablet, dissolve in one half glass of water. Allow about 2 minutes for the tablets to disintegrate. Stir before giving to prepare slurry and administer. Please exclude Patients with feeding tube less than 14 [place] (Dobhoff, J-tube etc) and pediatric and patients. atorvastatin 40 mg, 1 tab, No Longer Route: PO, Active 2018 [facility] Drug form: [place]ossy TAB, Bedtime, Dosing Weight 65.3, kg, Start date: 06/01/18 21:00:00 DRAUGHTSMAN, Duration: 30 day, Stop date: 06/30/18 21:00:00 CDTNotes: (Same as: Lipitor) Melatonin 6 mg, 2 tab, No Longer Route: PO, Active 2018 [facility] Drug form: [place] TAB, Bedtime, Dosing Weight 65.3, kg, PRN as needed for sleep, Start date: 06/01/18 20:11:00 DRAUGHTSMAN, Duration: 30 day, Stop date: 07/01/18 20:10:00 CDTNotes: (Same as: Melatonin) Losartan 100 mg, 1 tab, No Longer Route: PO, Active 2018 [facility] Drug form: [place] TAB, Daily, Dosing Weight 65.3, kg, Priority: NOW, Start date: 06/01/18 18:40:00 DRAUGHTSMAN, Duration: 30 day, Stop date: 07/01/18 9:00:00 CDTNotes: (Same as: Ivethzaar) Hydralazine 10 mg, 0.5 mL, No Longer Route: IVP, Active 2018 [facility] Drug form: [place] INJ, Q2H, Dosing Weight 65.3, kg, PRN Hypertension, Start date: 06/01/18 18:40:00 DRAUGHTSMAN, Duration: 30 day, Stop date: 07/01/18 18:39:00 CDTNotes: (Same as: Apresoline) Push over 5 minutes Losartan 100 mg, 1 tab, Inactive Route: PO, 2018 [facility] Drug form: [place] TAB, Daily, Dosing Weight 65.3, kg, Start date: 06/01/18 9:00:00 DRAUGHTSMAN, Duration: 30 day, Stop date: 06/30/18 9:00:00 CDTNotes: (Same as: Chandan) Amlodipine 5 mg, 1 tab, No Longer Route: PO, Active 2018 [facility] Drug form: [place] TAB, Daily, Dosing Weight 65.3, kg, Start date: 06/01/18 9:00:00 DRAUGHTSMAN, Duration: 30 day, Stop date: 06/30/18 9:00:00 CDTNotes: (Same as: Norvasc) Enoxaparin 30 mg, 0.3 mL, No Longer Route: SUB-Q, Active 2018 [facility] Drug form: [place] INJ, [id number], Dosing Weight 65.3, kg, Start date: 06/01/18 9:00:00 DRAUGHTSMAN, Duration: 30 day, Stop date: 06/30/18 9:00:00 CDTNotes: (Same as: Lovenox) Saline Flush 0.9% 10 ml, Route: Inactive IVP, Drug 2018 [facility] Form: INJ, [facility] Dosing Weight 65.3, kg, Q12H, Start date: 06/01/18 9:00:00 DRAUGHTSMAN, Duration: 30 day, Stop date: 06/30/18 21:00:00 CDTNotes: (Same as: BD Posiflush) pantoprazole 40 mg, 1 tab, No Longer Route: PO, Active 2018 [facility] Drug form: [place] ECTAB, Daily, Dosing Weight 65.3, kg, Start date: 06/01/18 9:00:00 DRAUGHTSMAN, Duration: 30 day, Stop date: 06/30/18 9:00:00 CDTNotes: Tablet should not be chewed or crushed. (Same as: Protonix) Sodium Chloride 25 mL, Route: No Longer 0.9% IV IV, Start Active 2018 [facility] date: 06/01/18 [facility] 7:02:00 DRAUGHTSMAN, Duration: 30 day, Stop date: 07/01/18 8:01:00 CDT, PRN Line Flush BD Normal Saline 10 mL, Route: Inactive Flush IV, Drug Form: 2018 [facility] INJ, PRN, PRN [facility] Line Flush, Start date: 06/01/18 7:02:00 DRAUGHTSMAN, Duration: 30 day, Stop date: 07/01/18 8:01:00 CDTNotes: (Same as: BD Posiflush) citalopram 20 mg 20 mg=1 tab, Active oral tablet PO, Daily, 0 2018 [facility] Refill(s) [facility] pitavastatin 2 mg 2 mg=1 tab, No Longer oral tablet PO, Daily, 0 Active 2018 [facility] Refill(s) [facility] Aspirin 325 MG 325 mg, 1 tab, No Longer Enteric Coated Route: PO, Active 2018 [facility] Tablet Drug form: [place]ossy ECTAB, Q24H, Dosing Weight 65.3, kg, Start date: 05/31/18 22:00:00 DRAUGHTSMAN, Duration: 30 day, Stop date: 06/29/18 22:00:00 CDTNotes: (Do Not Crush) Do not crush or chew. Saline Flush 0.9% 10 ml, Route: No Longer IVP, Drug Active 2018 [facility] Form: INJ, [facility] Dosing Weight 65.3, kg, PRN, PRN Line Flush, Start date: 05/31/18 21:03:00 DRAUGHTSMAN, Duration: 30 day, Stop date: 06/30/18 22:02:00 CDTNotes: (Same as: BD Posiflush) Acetaminophen 650 mg, 2 tab, No Longer Route: PO, Active 2018 [facility] Drug form: [facility] TAB, Q4H, Dosing Weight 65.3, kg, PRN Pain 1-3/Temp > 100.4 F, Start date: 05/31/18 21:03:00 DRAUGHTSMAN, Duration: 30 day, Stop date: 06/30/18 21:02:00 CDTNotes: Do not exceed 4 gm/day. (Same as: Tylenol) Labetalol 10 mg, 2 mL, No Longer Route: IVP, [facility] 2018 [facility] Drug form: [facility] INJ, Q10Min, Dosing Weight 65.3, kg, PRN Hypertension, For SBP > 180 mmHg and/or DBP > 105 mmHg, Start date: 05/31/18 21:03:00 DRAUGHTSMAN, Duration: 30 day, Stop date: 06/30/18 22:02:00 CDTNotes: (Same as: Normodyne, Trandate) Push over 2 minutes Give bolus over 2-3 minutes. Sodium Chloride 1,000 mL, No Longer 0.9% IV 1,000 mL Rate: [address] ml/hr, Infuse [facility] over: 20 hr, Route: IV, Dosing Weight 65.3 kg, Total Volume: 1,000, Start date: 05/31/18 21:03:00 DRAUGHTSMAN, Duration: 30 day, Stop date: 06/30/18 21:02:00 CDT, 1.69, m2 Metoprolol 5 mg, Route: Inactive IV, POST OP, [address] [place] [address] Dosing Weight 66.364, kg, Start date: 05/27/18 15:00:00 DRAUGHTSMAN, Duration: 30 day, Stop date: 06/26/18 14:59:00 DRAUGHTSMAN Morphine 2 mg, Route: Inactive IVP, Q5Min, 2018 [facility] Dosing Weight 66.364, kg, PRN Pain Score 4-6, Start date: 05/27/18 13:38:00 DRAUGHTSMAN, Duration: 5 doses or times, Stop date: Limited # of times Flumazenil 0.2 mg, Route: Inactive IVP, PRN, 2019 [facility] Dosing Weight 66.364, kg, PRN Benzodiazepine Reversal, Initial dose, Start date: 05/27/18 13:38:00 DRAUGHTSMAN, Duration: 30 day, Stop date: 06/26/18 13:37:00 DRAUGHTSMAN Hydromorphone 0.5 mg, Route: Inactive IVP, Q5Min, 2018 [facility] Dosing Weight 66.364, kg, PRN Pain Score 7-10, Start date: 05/27/18 13:38:00 DRAUGHTSMAN, Duration: 4 doses or times, Stop date: Limited # of times Naloxone 0.4 mg, Route: Inactive IVP, Q2MIN, 2018 [facility] Dosing Weight 66.364, kg, PRN Narcotic Reversal, Start date: 05/27/18 13:38:00 DRAUGHTSMAN, Duration: 8 doses or times, Stop date: Limited # of times Ondansetron 4 mg, Route: Inactive IVP, ONCE, 2018 [facility] Dosing Weight 66.364, kg, PRN Nausea & Vomiting, Start date: 05/27/18 13:38:00 DRAUGHTSMAN Acetaminophen 1,000 mg, Inactive Route: IVPB, 2018 [facility] Drug form: INJ, ONCE, Dosing Weight 66.364, kg, PRN Pain Score 1-3, Start date: 05/27/18 13:38:00 DRAUGHTSMAN Labetalol 10 mg, Route: Inactive IVP, Q5Min, 2018 [facility] Dosing Weight 66.364, kg, PRN Elevated BP, Start date: 05/27/18 13:38:00 DRAUGHTSMAN, Duration: 5 doses or times, Stop date: Limited # of times Calcium Chloride 1,000 mL, Inactive 0.0014 MEQ/ML / Rate: 125 2018 [facility] Potassium Chloride ml/hr, Infuse 0.004 MEQ/ML / over: 8 hr, Sodium Chloride Route: IV, 0.103 MEQ/ML / Dosing Weight Sodium Lactate 66.364 kg, 0.028 MEQ/ML Total Volume: Injectable 1,000, Start Solution date: 05/27/18 13:38:00 DRAUGHTSMAN, Duration: 30 day, Stop date: 06/26/18 13:37:00 DRAUGHTSMAN, 1.73, m2 Albuterol 0.833 3 mL, Route: Inactive MG/ML / NEB, Dosing 2019 [facility] Ipratropium Weight 66.364, [place] 0.167 kg, ONCE, MG/ML Inhalant STAT, Start Solution date: 05/27/18 11:07:00 DRAUGHTSMAN, Stop date: 05/27/18 11:07:00 DRAUGHTSMAN Calcium Chloride 1,000 mL, Inactive 0.0014 MEQ/ML / Rate: 25 2018 [facility] Potassium Chloride ml/hr, Infuse 0.004 MEQ/ML / over: 40 hr, Sodium Chloride Route: IV, 0.103 MEQ/ML / Dosing Weight Sodium Lactate 66.364 kg, 0.028 MEQ/ML Total Volume: Injectable 1,000, Start Solution date: 05/27/18 11:07:00 DRAUGHTSMAN, Duration: 30 day, Stop date: 06/26/18 11:06:00 DRAUGHTSMAN, 1.73, m2 tramadol 50 mg=1 tab, Active hydrochloride 50 PO, Q8H 2019 [facility] MG Oral Tablet Docusate Sodium 50 2 tab, PO, Active MG / sennosides, Bedtime, 0 2018 [facility] FCI 8.6 MG Oral Refill(s) Tablet Omeprazole 20 mg, PO, Active Daily, 0 2018 [facility] Refill(s) amLODIPine 5 mg 5 mg=1 tab, Active oral tablet PO, Daily, 0 2018 [facility] Refill(s) Melatonin 3 MG 3 mg=1 tab, Active Extended Release PO, Bedtime, 2019 [facility] Tablet PRN for insomnia, # 14 tab, 0 Refill(s) Hydrochlorothiazid 1 tab, PO, Active e 25 MG / Losartan Daily, 0 2018 [facility] Potassium 100 MG Refill(s) Oral Tablet metoprolol 50 mg, PO, Active tartrate BID, 0 2018 [facility] Refill(s) escitalopram 10 mg 10 mg=1 [...] 11.9 meq/L 10.0 - 06/05 ES 20.0 [facility] ELECTROLYT Glucose Lvl 93 mg/dL 70 - 99 06/05 [facility] ELECTROLYT BUN 18 mg/dL 7 - 22 06/05 [facility] ELECTROLYT CO2 25 meq/L 24 - 32 06/05 [facility] ELECTROLYT Sodium Lvl 138 meq/L 135 - 145 06/05 [facility] ELECTROLYT Chloride Lvl 105 meq/L 95 - 109 06/05 [facility] ELECTROLYT Potassium 3.9 meq/L 3.5 - 5.1 06/05 ES Lvl [facility] ELECTROLYT eGFR 51 06/05 Result Comment: [...] is not recommended in the following populations: [address] Individuals with unstable creatinine concentrations, including [...] 0.50 - 02/16 MH ES Lvl 1.40 [facility] ELECTROLYT Phosphorus 3.4 mg/dL 2.5 - 4.5 06/05 [facility] ELECTROLYT Albumin Lvl 3.3 g/dL 3.5 - 5.0 06/05 [facility] ELECTROLYT Calcium Lvl 9.0 mg/dL 8.5 - 10.5 06/05 [facility] CHEM PANEL Phosphorus 3.0 mg/dL 2.5 - 4.5 06/03 [facility] CHEM PANEL Magnesium 2.1 mg/dL 1.8 - 2.4 06/03 Lv [facility] CHEM PANEL eGFR 40 06/03 Result [...] is not recommended in the following populations: [address] Individuals with unstable creatinine concentrations, including [...] 1.20 mg/dL 0.50 - 06/03 Lvl 1.40 [facility] CHEM PANEL Calcium Lvl 9.4 mg/dL 8.5 - 10.5 06/03 [facility] CHEM PANEL Glucose Lvl 192 mg/dL 70 - 99 06/03 [facility] CHEM PANEL CO2 21 meq/L 24 - 32 06/03 [facility] CHEM PANEL AGAP 16.9 meq/L 10.0 - 06/03 20. [facility] CHEM PANEL BUN 15 mg/dL 7 - 22 06/03 [facility] CHEM PANEL Sodium Lvl 140 meq/L 135 - 145 06/03 [facility] CHEM PANEL Potassium 3.9 meq/L 3.5 - 5.1 06/03 Lv [facility] CHEM PANEL Chloride Lvl 106 meq/L 95 - 109 06/03 [facility] CHEM PANEL Magnesium 1.5 mg/dL 1.8 - 2.4 06/02 Lvl [facility] ELECTROLYT AGAP 13.3 meq/L 10.0 - 06/02 ES 20.0 [facility] ELECTROLYT Chloride Lvl 104 meq/L 95 - 109 06/02 [facility] ELECTROLYT Potassium 3.3 meq/L 3.5 - 5.1 06/02 ES Lvl [facility] ELECTROLYT Sodium Lvl 141 meq/L 135 - 145 06/02 [facility] ELECTROLYT Calcium Lvl 9.3 mg/dL 8.5 - 10.5 06/02 ES [facility] ELECTROLYT CO2 27 meq/L 24 - 32 06/02 [facility] ELECTROLYT BUN 11 mg/dL 7 - 22 06/02 [facility] ELECTROLYT Glucose Lvl 106 mg/dL 70 - 99 06/02 [facility] ELECTROLYT eGFR 57 06/02 Result Comment: [...] is not recommended in the following populations: [address] Individuals with unstable creatinine concentrations, including [...] mg/dL 0.50 - 06/02 ES Lvl 1.40 [facility] HEMATOLOGY Hgb 13.1 g/dL 12.0 - 06/02 16. [facility] HEMATOLOGY Hct 37.7 % 36.0 - 06/02 MH 48.0 [facility] HEMATOLOGY MCV 91.7 fL 80.0 - 06/02 98.0 [facility] HEMATOLOGY MCH 31.8 pg 27.0 - 06/02 MH 31.0 [facility] MCHC 34.7 g/dL 32.0 - 06/02 MH 36.0 [facility] HEMATOLOGY RDW 13.4 % 11.5 - 06/02 MH 14.5 [facility] Platelet 303 K/CMM 133 - 450 06/02 [facility] MPV 7.7 fL 7.4 - 10.4 06/02 [facility] RBC 4.12 M/CMM 4.20 - 06/02 MH 5.40 /2018 [facility] WBC 8.7 K/CMM 3.7 - 10.4 06/02 [facility] Eosinophils 0.2 K/CMM 0.0 - 0.5 06/02 [facility] Basophils # 0.1 K/CMM 0.0 - 0.2 06/02 [facility] Monocytes 11.2 % 2.0 - 12.0 06/02 [facility] HEMATOLOGY Lymphocytes 25.0 % 20.0 - 06/02 MH 40.0 [facility] Segs 60.7 % 45.0 - 06/02 MH 75.0 [facility] Lymphocytes 2.2 K/CMM 1.0 - 5.5 06/02 [facility] HEMATOLOGY Monocytes # 1.0 K/CMM 0.0 - 0.8 06/02 [facility] Neutrophils 5.3 K/CMM 1.5 - 8.1 06/02 [facility] HEMATOLOGY Eosinophils 2.1 % 0.0 - 4.0 06/02 [facility] Basophils 1.0 % 0.0 - 1.0 06/02 [facility] Chest CTA Chest CTA EXAMINATION: CT ANGIOGRAPHY OF THE CHEST WITH CONTRAST 06/02 - - [facility] HISTORY: Altered mental status; history of [...] 254 - 1320 06/01 STUDY Lvl /2018 [facility] CARDIAC Troponin-I null 0.00 - 06/01 ENZYMES 0.40 [facility] CHEM PANEL Ammonia 12.0 <=45.0 06/01 umol/L uMol/L /2018 [facility] CARDIAC Troponin-I null 0.00 - 06/01 ENZYMES 0.40 [facility] Brain/Neck Brain/Neck EXAM: CTA NECK WITH CONTRAST 06/01 CTA CTA /2018 [facility] EXAM: CTA BRAIN WITH CONTRAST [facility] EXAM: NONCONTRAST CT BRAIN Read by: Fabrice Hatch MD Dictated Date/time: 06/01/18 11:49 Electronically Signed by: Fabrice Hatch MD 06/01/18 11:57 FINAL REPORT DATE: 06/01/2018 8:12 DRAUGHTSMAN ORDERING PHYSICIAN: Ashwin Bell MD CLINICAL INDICATION: [...] stenosis. There is mild cast right atherosclerosis. [place]: Standard configuration without proximal stenosis [...] evident in the right MCA and left COVERAGE ANALYST. 3. Neck CTA: No evidence of hemodynamically significant cervical carotid or vertebral stenosis All quantitative and qualitative assessments of carotid bifurcation and proximal internal carotid artery stenosis are made at referencing the distal internal carotid artery (NASCET criteria). CARDIAC Troponin-I null 0.00 - 02 ENZYMES 0.40 [facility] CHEM PANEL Alk Phos 77 unit/L 39 - 136 06/01 [facility] CHEM PANEL Albumin Lvl 3.0 g/dL 3.5 - 5.0 06/01 [facility] CHEM PANEL ALT 14 unit/L 0 - 65 06/01 [facility] CHEM PANEL AST 13 unit/L 0 - 37 06/01 [facility] CHEM PANEL Total 6.5 g/dL 6.4 - 8.4 06/01 [facility] CHEM PANEL Bili Total 0.4 mg/dL 0.2 - 1.3 06/01 [facility] CHEM PANEL B/C Ratio 13 6 - 25 06/01 [facility] CHEM PANEL Globulin 3.5 g/dL 2.7 - 4.2 06/01 [facility] CHEM PANEL A/G Ratio 0.9 0.7 - 1.6 06/01 [facility] HEMATOLOGY Eosinophils 0.1 K/CMM 0.0 - 0.5 / MH # /2019 [facility] HEMATOLOGY Eosinophils 0.8 % 0.0 - 4.0 06/01 [facility] HEMATOLOGY Monocytes 10.4 % 2.0 - 12.0 06/01 [facility] HEMATOLOGY Lymphocytes 2.7 K/CMM 1.0 - 5.5 06/01 MH # /2019 [facility] HEMATOLOGY Lymphocytes 30.3 % 20.0 - 02 MH 40.0 [facility] HEMATOLOGY Monocytes # 0.9 K/CMM 0.0 - 0.8 06/01 [facility] HEMATOLOGY Neutrophils 5.1 K/CMM 1.5 - 8.1 06/01 MH # /2018 [facility] HEMATOLOGY Basophils 0.4 % 0.0 - 1.0 06/01 [facility] HEMATOLOGY Segs 58.1 % 45.0 - 02 75.0 [facility] HEMATOLOGY PTT 32.9 s 22.9 - 02/ MH 35.8 /2019 [facility] HEMATOLOGY INR 1.08 0.85 - 02 MH 1.17 [facility] HEMATOLOGY PT 13.8 s 12.0 - 06/01 MH 14.7 /2019 [facility] HEMATOLOGY RBC 3.77 M/CMM 4.20 - 02 5.40 /2019 [facility] HEMATOLOGY WBC 8.8 K/CMM 3.7 - 10.4 02 [facility] HEMATOLOGY MCV 92.0 fL 80.0 - 06/01 98.0 /2019 [facility] HEMATOLOGY MCH 31.5 pg 27.0 - 06/01 MH 31.0 /2019 [facility] HEMATOLOGY MCHC 34.3 g/dL 32.0 - 02 MH 36.0 /2019 [facility] HEMATOLOGY Hct 34.7 % 36.0 - 06/01 MH 48.0 /2019 [facility] HEMATOLOGY MPV 7.6 fL 7.4 - 10.4 06/01 [facility] HEMATOLOGY Hgb 11.9 g/dL 12.0 - 06/01 16.0 [facility] HEMATOLOGY Platelet 296 K/CMM 133 - 450 02 [facility] HEMATOLOGY RDW 13.3 % 11.5 - 06/01 14.5 [facility] LIPIDS VLDL 23 02 /2018 [facility] LIPIDS HDL 59 mg/dL >=61 mg/dL 06/01 [facility] LIPIDS LDL 112 mg/dL <=99 mg/dL 06/01 (Calculated) [facility] LIPIDS Trig 115 mg/dL <=149 06/01 mg/dL [facility] LIPIDS Chol 194 mg/dL <=199 06/01 mg/dL /2018 [facility] LIPIDS CHD Risk 3.29 3.90 - 06/01 5.80 /2019 [facility] SPECIAL Hgb A1C 6.1 % <=5.6 % 06/01 CHEMISTRY /2018 [facility] URINE AND UA RBC 1 /HPF 0 - 2 06/01 STOOL [facility] URINE AND UA WBC 4 /HPF 0 - 5 06/01 STOOL [facility] URINE AND UA Nitrite Negative Negative 06/01 STOOL [facility] (05/31/18 9:44 PM) [facility] URINE AND UA <=1.0 0.1 - 1.0 06/01 STOOL Urobilinogen mg/dL [facility] URINE AND UA Ketones Trace Negative 06/01 STOOL [facility] *ABN* [facility] (05/31/18 9:44 PM) URINE AND UA Blood Negative Negative 06/01 STOOL [facility] (05/31/18 9:44 PM) [facility] URINE AND UA Sq Epi Occasional Few /LPF 06/01 STOOL /LPF [facility] URINE AND UA Leuk Est Negative Negative 06/01 [facility] (05/31/18 9:44 PM) [facility] URINE AND UA Bacteria Occasional None Seen 06/01 STOOL /HPF /HPF [facility] URINE AND UA Protein Negative Negative 06/01 [facility] (05/31/18 9:44 PM) [facility] URINE AND UA pH 7.0 5.0 - 8.0 06/01 STOOL [facility] URINE AND UA Turbidity Clear Clear 06/01 [facility] (05/31/18 9:44 PM) [facility] URINE AND UA Spec Grav 1.010 <=1.030 06/01 [facility] URINE AND UA Bili Negative Negative 06/01 [facility] *NA* [facility] (05/31/18 9:44 PM) URINE AND UA Glucose Negative Negative 06/01 [facility] *NA* [facility] (05/31/18 9:44 PM) URINE AND UA Color Straw 06/01 [facility] Brain wo Brain wo EXAM: Brain wo contrast MRI 05/31 - contrast contrast MRI - [facility] MRI [facility] DATE: 05/31/2018 21:03 DRAUGHTSMAN. Read by: Melvin Gonzáles MD Dictated Date/time: [...] Cast 3 /LPF 0 - 2 05/24 [facility] URINE AND UA Color Yellow Yellow 05/24 *NA* (05/24/18 11:44 AM) URINE AND UA Glucose Negative Negative 05/24 [facility] *NA* (05/24/18 11:44 AM) URINE AND UA Ketones Negative Negative 05/24 [facility] *NA* (05/24/18 11:44 AM) URINE AND UA Bacteria None Seen None Seen 05/24 [facility] (05/24/18 11:44 AM) URINE AND UA Mucus Moderate None Seen 05/24 STOOL /LPF /LPF [facility] URINE AND UA Protein Negative Negative 05/24 [facility] (05/24/18 11:44 AM) URINE AND UA pH 5.0 5.0 - 8.0 05/24 [facility] URINE AND UA Spec Grav 1.017 <=1.030 05/24 [facility] URINE AND UA Turbidity Slight Clear 05/24 [facility] *ABN* (05/24/18 11:44 AM) URINE AND UA RBC 2 /HPF 0 - 2 05/24 [facility] URINE AND UA WBC 4 /HPF 0 - 5 05/24 [facility] URINE AND UA Sq Epi Occasional Few /LPF 05/24 STOOL /LPF [facility] URINE AND Micro? Performed 05/24 [facility] (05/24/18 11:44 AM) URINE AND UA Leuk Est Small Negative 05/24 [facility] *ABN* (05/24/18 11:44 AM) URINE AND UA Nitrite Negative Negative 05/24 [facility] (05/24/18 11:44 AM) URINE AND UA Bili Negative Negative 05/24 STOOL [facility] *NA* (05/24/18 11:44 AM) URINE AND UA Blood Negative Negative 05/24 STOOL [facility] (05/24/18 11:44 AM) URINE AND UA <=1.0 0.1 - 1.0 05/24 STOOL Urobilinogen mg/dL [facility] Culture: <10,000 05/24 Urine CFU/mL /2018 [facility] Skin [place] CHEM PANEL eGFR 47 [...] is not recommended in the following populations: [facility] 3m2 Individuals with unstable creatinine concentrations, [...] CO2 27 meq/L 24 - 32 05/24 [facility] CHEM PANEL Calcium Lvl 9.1 mg/dL 8.5 - 10.5 05/24 [facility] CHEM PANEL Sodium Lvl 141 meq/L 135 - 145 05/24 [facility] CHEM PANEL Chloride Lvl 106 meq/L 95 - 109 05/24 [facility] CHEM PANEL Potassium 4.7 meq/L 3.5 - 5.1 05/24 Lvl [facility] CHEM PANEL BUN 20 mg/dL 7 - 22 05/24 [facility] CHEM PANEL Creatinine 1.06 mg/dL 0.50 - 05/24 Lvl 1.40 /2018 [facility] CHEM PANEL Glucose Lvl 93 mg/dL 70 - 99 05/24 [facility] CHEM PANEL AGAP 12.7 meq/L 10.0 - 02 MH 20.0 [facility] HEMATOLOGY Eosinophils 0.1 K/CMM 0.0 - 0.5 05/24 # /2019 [facility] HEMATOLOGY Basophils # 0.1 K/CMM 0.0 - 0.2 05/24 /2018 [facility] HEMATOLOGY Monocytes # 0.7 K/CMM 0.0 - 0.8 05/24 [facility] HEMATOLOGY Basophils 0.9 % 0.0 - 1.0 05/24 /2018 [facility] HEMATOLOGY Eosinophils 1.5 % 0.0 - 4.0 05/24 /2018 [facility] HEMATOLOGY Segs 60.6 % 45.0 - 02/ 75.0 /2018 [facility] HEMATOLOGY Monocytes 9.0 % 2.0 - 12.0 05/24 /2018 [facility] HEMATOLOGY Lymphocytes 28.0 % 20.0 - 02 MH 40.0 /2018 [facility] HEMATOLOGY Lymphocytes 2.2 K/CMM 1.0 - 5.5 05/24 MH # /2018 [facility] HEMATOLOGY Neutrophils 4.7 K/CMM 1.5 - 8.1 05/24 # /2018 [facility] HEMATOLOGY INR 1.04 0.85 - 05/24 1.17 [facility] HEMATOLOGY PT 13.4 s 12.0 - 05/24 14.7 [facility] HEMATOLOGY PTT 33.6 s 22.9 - 05/24 35.8 /2018 [facility] HEMATOLOGY MCH 31.2 pg 27.0 - 02 31.0 /2018 [facility] HEMATOLOGY RBC 4.08 M/CMM 4.20 - 02 5.40 /2018 [facility] HEMATOLOGY Hgb 12.7 g/dL 12.0 - 05/24 16.0 /2018 [facility] HEMATOLOGY Platelet 291 K/CMM 133 - 450 02 [facility] HEMATOLOGY WBC 7.7 K/CMM 3.7 - 10.4 02 /2018 [facility] HEMATOLOGY Hct 37.9 % 36.0 - 05/24 48.0 /2019 [facility] HEMATOLOGY MCV 92.8 fL 80.0 - 02 98.0 /2018 [facility] HEMATOLOGY MPV 7.8 fL 7.4 - 10.4 05/24 [facility] HEMATOLOGY MCHC 33.6 g/dL 32.0 - 02 36.0 [facility] HEMATOLOGY RDW 13.6 % 11.5 - 02/ 14.5 [facility] Vital Signs Vital Sign Value Date Comments Source Temperature Oral (F) 97.9 F 06/07/2018 [facility] Respitory Rate 19 06/07/2018 [facility] Heart Rate 78 06/07/2018 [facility] Systolic (mm Hg) 120 06/07/2018 [facility] Diastolic (mm Hg) 75 06/07/2018 [facility] Systolic (mm Hg) 145 06/07/2018 [facility] Diastolic (mm Hg) 75 06/07/2018 [facility] Respitory Rate 17 06/07/2018 [facility] Heart Rate 77 06/07/2018 [facility] Temperature Oral (F) 97.7 F 06/07/2018 [facility] Respitory Rate 16 06/07/2018 [facility] Systolic (mm Hg) 138 06/07/2018 [facility] Diastolic (mm Hg) 74 06/07/2018 [facility] Heart Rate 77 06/07/2018 [facility] Temperature Oral (F) 98.0 F 06/07/2018 [facility] Height 152.4 cm 06/01/2018 [facility] Weight 65.3 06/01/2018 [facility] BMI Calculated 28.12 06/01/2018 [facility] Systolic (mm Hg) 194 05/27/2018 [facility] Diastolic (mm Hg) 85 05/27/2018 [facility] Systolic (mm Hg) 198 05/27/2018 [facility] Diastolic (mm Hg) 82 05/27/2018 [facility] Systolic (mm Hg) 190 05/27/2018 [facility] Diastolic (mm Hg) 70 05/27/2018 [facility] Respitory Rate 20 05/27/2018 [facility] Heart Rate 57 05/24/2018 [facility] Temperature Oral (F) 97.7 F 05/24/2018 [facility] Respitory Rate 18 05/24/2018 [facility] BMI Calculated 26.76 05/24/2018 [facility] Weight 66.364 05/24/2018 [facility] Height 157.48 cm 05/24/2018 [facility] Encounters Location Location Encounter Encounter Reason Attending ADM DC Status Source Details Type Number For Provider Date Date Visit [id number] Chris 05/27 05/27 [facility] Sharri /2018 [facility] Inpatient [id number] Stephan 06/01 06/07 Diego Flores /2018 [facility] Procedures Procedure Code Date Perfomer Comments Source Spinal cord [id number] No metal [facility] operation<sup>1< [place] /sup> Spinal cord [id number] [facility] operation
--- NOTE | 2018-07-30 18:26 | RAD REPORT ---
EXAM DESCRIPTION: CT - Ct Stroke Brain Wo Cont - 07/30/2018 6:17 pm CLINICAL HISTORY: Confusion/alteration of awareness COMPARISON: July 19, 2018 TECHNIQUE: Computed axial tomography of the head was obtained. All CT scans are performed using dose optimization technique as appropriate and may include automated exposure control or mA/KV adjustment according to patient size. FINDINGS: An intracranial bleed is not seen . The ventricles are normal in caliber. No extra-axial fluid collection is noted. No abnormal enhancement seen. Mild to moderate low-density within periventricular, deep and subcortic al white matter likely ischemic changes secondary to small vessel disease Fluid within the sinuses/ mastoids is not seen. IMPRESSION: No acute intracranial abnormality is seen. If patient's symptoms persist MRI of the bra in would be recommended. Dr Pteer of the emergency room was notified at 6:20 p.m. July 30, 2018
[2018-07-30 19:19] LABS: Absolute Lymphocytes (CBC) 2.9 K/uL (0.7-4.9); Absolute Monocytes 1.1 K/uL (0.1-1.3); Absolute Neutrophil 5.9 K/uL (1.8-8.0); Basophils % 0.8 % (0-1.3); Eosinophils % 1.5 % (0-4.4); Hematocrit 37.8 % (36.0-45.0); Lymphocytes % 28.7 % (15.3-44.8); MPV 8.1 fL (7.6-11.3); Monocytes % 10.4 % (3.3-12.3); RBC Red Blood Cell Count 3.99 M/uL (3.86-4.86)
--- NOTE | 2018-07-30 19:20 | RAD REPORT ---
EXAM DESCRIPTION: [facility]enez Single View07/30/2018 6:51 pm CLINICAL HISTORY: Hypertension COMPARISON: June 2018 FINDINGS: Elevation of the right hemidiaphragm unchanged The lungs appear clear of acute infiltrate. The heart is mildly enlarged IMPRESSION: No acute abnormalities displayed
[2018-07-30 19:24] LABS: Protime INR 0.95
[2018-07-30 19:37] LABS: Potassium 3.8 mmol/L (3.5-5.1)
--- NOTE | 2018-07-30 21:11 | ER ---
Nurse's Notes [facility] Name: Itzel Nunez Age: 87 yrs Sex: Female : 1930 Arrival Date: 07/30/2018 Time: 18:05 Bed 23 Private MD: Diagnosis: Transient cerebral ischemic attack, unspecified Presentation: 07/30 18:06 Presenting complaint: EMS states: she had sudden onset weakness about 25 minutes ago tw2 around 1740, she had facial droop with slurred speech, when we arrived the facial droop had resolved but she was a\T\ox1, now she is a\T\ox3, she is in afib, and has a hx of afib. Transition of care: patient was not received from another setting of care. Onset of symptoms was July 30, 2018 at 17:40. Risk Assessment: Do you want to hurt yourself or someone else? Patient reports no desire to harm self or others. 18:06 Method Of Arrival: EMS: [facility] tw2 18:06 Acuity: BRENDAN 2 tw2 18:26 No acute neurological deficit is noted. The patients blood glucose was checked before tw2 arriving to the hospital and was found to be normal. Initial Sepsis Screen: Does the patient meet any 2 criteria? No. Patient's initial sepsis screen is negative. Does the patient have a suspected source of infection? No. Patient's initial sepsis screen is negative. Care prior to arrival: Medication(s) given: Normal saline infusion, 100 ml IV initiated. 20 GA, in the right antecubital area. Triage Assessment: 17:40 The onset of the patients symptoms was less than three hours ago. General: Appears in tw2 no apparent distress. well groomed. Neuro: Reports weakness. 18:38 The onset of the patients symptoms was July 30, 2018 at 17:40. tw2 Stroke Activation: Symptom onset < 3 hours Physician: Stroke Attending; Name: ; Notified At: ; Arrived At: Physician: Chief Stroke Resident; Name: ; Notified At: ; Arrived At: Physician: Stroke Resident; Name: ; Notified At: ; Arrived At: Physician: ED Attending; Name: ; Notified At: ; Arrived At: Physician: ED Resident; Name: ; Notified At: ; Arrived At: 18:06 time called at 1804 tw2 Historical: - Allergies: 18:25 No Known Allergies; tw2 - Home Meds: 18:25 Tramadol Oral for Chronic pain [Active]; Metoprolol Tartrate Oral [Active]; Hyzaar Oral tw2 [Active]; - PMHx: 18:25 Back pain; High Cholesterol; Hypertension; TIA; tw2 - Immunization history:: Adult Immunizations. - Social history:: Smoking status: . - Ebola Screening: : Patient denies travel to an Ebola-affected area in the 21 days before illness onset. Screenin:26 Abuse screen: Denies threats or abuse. Nutritional screening: No deficits noted. tw2 Tuberculosis screening: No symptoms or risk factors identified. Fall Risk Fall in past 12 months (25 points). Secondary diagnosis (15 points) TIA, impaired mobility. Assessment: 18:09 Reassessment: pt moved to MO at this time with MANDY Lemushot metal charger nurse. tw2 18:25 Patient has been NPO before screening. The patient is alert, and able to follow tw2 commands. The patient does not exhibit slurred or garbled speech. The patient is not exhibiting difficulty speaking. The patient is exhibiting difficulty understanding words. The patient is able to swallow own secretions with no drooling or need for suction. Patient tolerated one teaspoon of water. No drooling, immediate coughing, gurgling, or clearing of the throat was noted. The patient tolerated 90mL of water. No drooling, immediate coughing, gurgling, or clearing of the throat was noted. The patient passed the bedside swallow screening. Oral medications may be given as ordered. Contact Physician for further diet orders. Provider notified of bedside swallow screening results: Hermilo Peter MD. 18:35 VAN Scoring: Arm Drift: Patients demonstrates NO arm weakness. Patient is VAN Negative. tw2 T-PA (Activase) Screening:. General: Appears in no apparent distress. well groomed, Behavior is calm, cooperative, appropriate for age. Pain: Denies pain. Neuro: Level of Consciousness is awake, alert, obeys commands, Oriented to person, place, time, situation. Cardiovascular: Heart tones S1 S2 Patient's skin is warm and dry. Respiratory: Airway is patent Respiratory effort is even, unlabored, Respiratory pattern is regular, symmetrical, Breath sounds are clear bilaterally. GI: No signs and/or symptoms were reported involving the gastrointestinal system. GI: Abdomen is round non-distended, Bowel sounds present X 4 quads. : No signs and/or symptoms were reported regarding the genitourinary system. EENT: No signs and/or symptoms were reported regarding the EENT system. Derm: No signs and/or symptoms reported regarding the dermatologic system. Musculoskeletal: Range of motion: intact in all extremities. 18:58 Reassessment: Patient appears in no apparent distress at this time. No changes from tw2 previously documented assessment. Patient and/or family updated on plan of care and expected duration. Pain level reassessed. Patient is alert, oriented x 3, equal unlabored respirations, skin warm/dry/pink. 19:25 Reassessment: Patient appears in no apparent distress at this time. Patient and/or jb4 family updated on plan of care and expected duration. Pain level reassessed. Patient is alert, oriented x 3, equal unlabored respirations, skin warm/dry/pink. Family member at the bedside reports that patient appears to be back at her normal baseline. Neuro: Level of Consciousness is awake, alert, obeys commands, Oriented to person, place, time, situation, Mending Carrier are equal bilaterally Moves all extremities. Speech is normal, Facial symmetry appears normal. 20:52 Reassessment: Patient appears in no apparent distress at this time. No changes from jb4 previously documented assessment. Patient and/or family updated on plan of care and expected duration. Pain level reassessed. Provider is at the bedside. 21:17 Reassessment: Pt a,d Caregiver (daughter) requested to leave AMA, Provider notified, jb4 AMA forms signed. Instructed to keep appointment with PCP upon leaving the ED. Leaving via wheelchair with caretaker resort, being assisted out of ED with technology coach, IV Dc'ed intact, bleeding controlled, pressure bandage applied. Pt is A\T\o x4, no s/s of distress or pain noted. Vital Signs: 18:32 BP 154 / 84; Pulse 73; Resp 16 S; Temp 98.6; Pulse Ox 97% on R/A; Pain 0/10; tw2 18:40 Weight 66.22 kg (M); tw2 18:58 BP 150 / 86; Pulse 76; Resp 22; Pulse Ox 97% on R/A; tw2 19:45 BP 163 / 84; Pulse 70; Resp 19; Pulse Ox 96% on R/A; jb4 20:45 BP 169 / 91; Pulse 70; Resp 24; Pulse Ox 97% on R/A; jb4 NIH Stroke Scale Scores: 18:35 NIHSS Score: 0 tw2 ED Course: 18:05 Patient arrived in ED. tw2 18:06 Placed in gown. Bed in low position. Side rails up X2. electric power line repairer on. Pulse ox on. tw2 NIBP on. 18:09 Triage completed. tw2 18:09 Arm band placed on. tw2 18:12 Svetlana Wahl RN is Primary Nurse. tw2 18:18 CT Stroke Brain w/o Contrast In Process Unspecified. EDMS 18:27 No provider procedures requiring assistance completed. Maintain EMS IV. Dressing tw2 intact. Good blood return noted. Site clean \T\ dry. Gauge \T\ site: 18 g RIGHT AC. 18:37 Hermilo Peter MD is Attending Physician. kdr 18:51 Stroke CXR 1 View In Process Unspecified. EDMS 18:59 Report given to MANDY Mchugh. tw2 19:14 Attending Physician role handed off by Hermilo Peter MD tw4 19:14 Vince Melendez MD is Attending Physician. tw4 21:09 Grabiel Draper MD is Referral Physician. tw4 21:17 IV discontinued, intact, bleeding controlled, No redness/swelling at site. jb4 Administered Medications: No medications were administered Point of Care Testing: Blood Glucose: 18:08 Blood Glucose: 128 mg/dL; tw2 Ranges: Outcome: 21:17 Discharged to home via wheelchair, with family. jb4 21:17 Condition: stable 21:17 Discharge instructions given to patient, family, Instructed on discharge instructions, follow up and referral plans. Demonstrated understanding of instructions, follow-up care. 21:20 Patient left the ED. jb4 NIH Stroke Scale - NIH Stroke Score Date: 07/30/2018 Time: 18:35 Total Score = 0 1a. Level of Consciousness (LOC) - 0(Alert) 1b. Level of Consciousness (LOC) (Year \T\ Age) - 0(Both) 1c. LOC Commands (Open \T\ Closes Eyes/Milling/Polishing Operator) - 0(Both) 2. Best Gaze (Lateral Gaze Paresis) - 0(Normal) 3. Visual Field Loss - 0(No visual loss) 4. Facial Palsy - 0(Normal) 5a. Left Arm: Motor (10-second hold) - 0(No drift) 5b. Right Arm: Motor (10-second hold) - 0(No drift) 6a. Left Leg: Motor (5-second hold - always test supine) - 0(No drift) 6b. Right Leg: Motor (5-second hold - always test supine) - 0(No drift) 7. Limb Ataxia (finger/nose \T\ heel/soto - test with eyes open) - 0(Absent) 8. Sensory Loss (pinprick arms/legs/face) - 0(Normal) 9. Best Language: Aphasia (description/naming/reading) - 0(No aphasia) 10. Dysarthria (speech clarity - read or repeat words) - 0(Normal) 11. Extinction and Inattention (visual/tactile/auditory/spatial/personal) - 0(No abnormality) Initials: tw2 Signatures: Dispatcher [employer] EDMS Hermilo Peter MD MD kdr Mariah Lieberman RN RN iw Svetlana Wahl RN RN tw2 Chris Ahmadi RN RN jb4 Vince Melendez MD MD tw4 Corrections: (The following items were deleted from the chart) 18:39 18:32 BP 154 / 84; Pulse 73bpm; Resp 16bpm; Spontaneous; Pulse Ox 97% RA; iw tw2 18:57 18:06 Presenting complaint: EMS states: she had sudden onset weakness about 25 tw2 minutes ago around 1740, she had facial droop with slurred speech, when we arrived the facial droop had resolved but she was a\T\ox1, now she is a\T\ox2, she is in afib, and has a hx of afib tw2
--- NOTE | 2018-07-30 21:11 | EDPHYS ---
Physician Documentation [facility] Name: Itzel Nunez Age: 87 yrs Sex: Female : 1930 Arrival Date: 07/30/2018 Time: 18:05 Bed 23 Private MD: ED Physician Vince Melendez HPI: 07/31 04:36 This 87 yrs old Female presents to ER via EMS with complaints of S/S of tw4 Possible Stroke. 04:36 The patient's problem is reported as paresthesias, in left upper extremity. Onset: The tw4 symptoms/episode began/occurred today. Duration: This was a single incident. Context: the episode(s) was witnessed, by family, occurred at home. The symptoms are alleviated by nothing. The symptoms are aggravated by nothing. Severity of symptoms: At their worst the symptoms were moderate in the emergency department the symptoms are unchanged. 04:36 Duration: This was a single incident, symptoms have resolved. Associated signs and tw4 symptoms: The patient has no apparent associated signs or symptoms. Patient's baseline: Neuro: alert and fully oriented, Motor: no deficits, Ambulation: walks without assistance, Speech: normal. The patient has experienced a previous episode, approximately 2 months ago. Historical: - Allergies: 07/30 18:25 No Known Allergies; tw2 - Home Meds: 18:25 Tramadol Oral for Chronic pain [Active]; Metoprolol Tartrate Oral [Active]; Hyzaar Oral tw2 [Active]; - PMHx: 18:25 Back pain; High Cholesterol; Hypertension; TIA; tw2 - Immunization history:: Adult Immunizations. - Social history:: Smoking status: . - Ebola Screening: : Patient denies travel to an Ebola-affected area in the 21 days before illness onset. ROS: 07/31 04:36 Constitutional: Negative for fever, chills, and weight loss, Eyes: Negative for injury, tw4 pain, redness, and discharge, Cardiovascular: Negative for chest pain, palpitations, and edema, Respiratory: Negative for shortness of breath, cough, wheezing, and pleuritic chest pain, Abdomen/GI: Negative for abdominal pain, nausea, vomiting, diarrhea, and constipation, Back: Negative for injury and pain, MS/Extremity: Negative for injury and deformity, Skin: Negative for injury, rash, and discoloration. Neuro: Positive for numbness, weakness. Exam: 04:40 Radiologist reports: negative for any acute findings tw4 04:40 Constitutional: This is a well developed, well nourished patient who is awake, alert, and in no acute distress. Head/Face: Normocephalic, atraumatic. Chest/axilla: Normal chest wall appearance and motion. Nontender with no deformity. No lesions are appreciated. Cardiovascular: Regular rate and rhythm with a normal S1 and S2. No gallops, murmurs, or rubs. Normal PMI, no JVD. No pulse deficits. Respiratory: Lungs have equal breath sounds bilaterally, clear to auscultation and percussion. No rales, rhonchi or wheezes noted. No increased work of breathing, no retractions or nasal flaring. Abdomen/GI: Soft, non-tender, with normal bowel sounds. No distension or tympany. No guarding or rebound. No evidence of tenderness throughout. MS/ Extremity: Pulses equal, no cyanosis. Neurovascular intact. Full, normal range of motion. Neuro: Awake and alert, GCS 15, oriented to person, place, time, and situation. Cranial nerves II-XII grossly intact. Motor strength 5/5 in all extremities. Sensory grossly intact. Cerebellar exam normal. Normal gait. Vital Signs: 07/30 18:32 BP 154 / 84; Pulse 73; Resp 16 S; Temp 98.6; Pulse Ox 97% on R/A; Pain 0/10; tw2 18:40 Weight 66.22 kg (M); tw2 18:58 BP 150 / 86; Pulse 76; Resp 22; Pulse Ox 97% on R/A; tw2 19:45 BP 163 / 84; Pulse 70; Resp 19; Pulse Ox 96% on R/A; jb4 20:45 BP 169 / 91; Pulse 70; Resp 24; Pulse Ox 97% on R/A; jb4 NIH Stroke Scale Scores: 18:35 NIHSS Score: 0 tw2 MDM: 19:14 Patient medically screened. tw4 07/31 04:40 Differential diagnosis: CVA, TIA, Dementia. Data reviewed: vital signs, nurses notes. tw4 Data interpreted: Pulse oximetry: Interpretation: normal. Counseling: I had a detailed discussion with the patient and/or guardian regarding: the historical points, exam findings, and any diagnostic results supporting the discharge/admit diagnosis, lab results, radiology results. Refusal of service: The patient/guardian displays adequate decision making capability and despite a detailed discussion of alternatives, benefits, risks, and consequences refuses: Admission to the hospital for further work-up and treatment. Special discussion: instructed patient to followup with PCP this week with scheduled appt although pt is signing out AMA. 07/30 18:38 Order name: Basic Metabolic Panel; Complete Time: 20:57 [facility] 07/30 20:57 Interpretation: Normal except: GLUC 125; BUN 27; GFR 41. [facility] 07/30 18:38 Order name: CBC with Diff; Complete Time: 20:57 [facility] 07/30 20:57 Interpretation: Normal except: WBC 10.1. [facility] 07/30 18:13 Order name: CT Stroke Brain w/o Contrast; Complete Time: 20:57 07/30 18:38 Order name: Protime (+inr); Complete Time: 20:57 [facility] 07/30 20:57 Interpretation: Within normal limits: PT 11.2. [facility] 07/30 18:38 Order name: Ptt, Activated; Complete Time: 20:57 [facility] 07/30 20:57 Interpretation: Within normal limits: PTT 32.3. [facility] 07/30 18:38 Order name: Stroke CXR 1 View; Complete Time: 20:57 [facility] 07/30 18:38 Order name: EKG; Complete Time: 18:39 kdr 07/30 18:38 Order name: Accucheck; Complete Time: 18:38 [facility] 07/30 18:38 Order name: Cardiac monitoring; Complete Time: 18:38 [facility] 07/30 18:38 Order name: EKG - Nurse/Tech; Complete Time: 18:38 [facility] 07/30 18:38 Order name: IV Saline Lock; Complete Time: 18:38 [facility] 07/30 18:38 Order name: Labs collected and sent; Complete Time: 18:38 [facility] 07/30 18:38 Order name: NPO; Complete Time: 18:38 kdr 07/30 18:38 Order name: O2 Per Protocol; Complete Time: 18:38 kdr 07/30 18:38 Order name: O2 Sat Monitoring; Complete Time: 18:39 [facility] 07/30 18:38 Order name: Stroke Swallow Screen; Complete Time: 18:39 kdr Administered Medications: No medications were administered Point of Care Testing: Blood Glucose: 07/30 18:08 Blood Glucose: 128 mg/dL; tw2 Ranges: Critical Glucose Levels:Adult <50 mg/dl or >400 mg/dl <40 mg/dl or >180 mg/dl Disposition: 07/30/18 21:10 Patient has left against medical advice. Impression: Transient cerebral ischemic attack, unspecified. - Patients states they are going to Home. - Condition is Stable. - Discharge Instructions: Transient Ischemic Attack, [id number]. Follow up: Grabiel Draper MD; When: Upon discharge from the Emergency Department; Reason: If symptoms return, Recheck today's complaints, Continuance of care. - Problem is new. - Symptoms have improved. NIH Stroke Scale - NIH Stroke Score Date: 07/30/2018 Time: 18:35 Total Score = 0 1a. Level of Consciousness (LOC) - 0(Alert) 1b. Level of Consciousness (LOC) (Year \T\ Age) - 0(Both) 1c. LOC Commands (Open \T\ Closes Eyes/[employer]) - 0(Both) 2. Best Gaze (Lateral Gaze Paresis) - 0(Normal) 3. Visual Field Loss - 0(No visual loss) 4. Facial Palsy - 0(Normal) 5a. Left Arm: Motor (10-second hold) - 0(No drift) 5b. Right Arm: Motor (10-second hold) - 0(No drift) 6a. Left Leg: Motor (5-second hold - always test supine) - 0(No drift) 6b. Right Leg: Motor (5-second hold - always test supine) - 0(No drift) 7. Limb Ataxia (finger/nose \T\ heel/soto - test with eyes open) - 0(Absent) 8. Sensory Loss (pinprick arms/legs/face) - 0(Normal) 9. Best Language: Aphasia (description/naming/reading) - 0(No aphasia) 10. Dysarthria (speech clarity - read or repeat words) - 0(Normal) 11. Extinction and Inattention (visual/tactile/auditory/spatial/personal) - 0(No abnormality) Initials: tw2 Signatures: Dispatcher [employer] EDMS Hermilo Peter MD MD [facility] Svetlana Wahl RN RN tw2 Chris Ahmadi RN RN 4 Vince Melendez MD MD tw4 Corrections: (The following items were deleted from the chart) 18:54 18:38 CT-STROKE BRAIN W/O CONTRAST+[id number].RAD.BRZ ordered. EDMS EDMS 21:20 21:10 07/30/2018 21:10 Patients has left against medical advice. Impression: jb4 Transient cerebral ischemic attack, unspecified. Patient states they are going to Home. Condition is Stable. Follow up: Grabiel Draper; When: Upon discharge from the Emergency Department; Reason: If symptoms return, Recheck today's complaints, Continuance of care. Problem is new. Symptoms have improved. tw4 07/31 04:40 04:36 The patient has not experienced similar symptoms in the past, tw4 tw4
--- NOTE | 2018-07-31 09:44 | EKG ---
Test Date: 2018-07-30 Test Time: 18:19:21 [employer] Observer: SOBEIDA MEASUREMENT RESULTS: Intervals: Rate: 80 MO: 176 QRSD: 88 QT: 402 QTc: 463 [place]: P: 17 MO: 176 QRS: -38 T: 33 INTERPRETIVE STATEMENTS: Sinus rhythm with occasional premature ventricular complexes Left axis deviation Anteroseptal infarct, age undetermined Abnormal ECG Compared to ECG 05/31/2018 13:12:15 Left-axis deviation now present Myocardial infarct finding still present Electronically Signed On 07-31-18 09:42:54 CDT by Narayan Narayanan
== END 2018-07-30 21:20 | disposition left against medical advice (07) ==
LOC: ER 18:02
DX: G45.9 Transient cerebral ischemic attack, unspecified (principal); I10 Essential (primary) hypertension; E78.00 Pure hypercholesterolemia, unspecified; Z86.73 Personal history of transient ischemic attack (TIA), and cerebral infarction without residual deficits
CPT/HCPCS: 36415; 70450; 71045; 80048; 82962; 85025; 85610; 85730; 93005; 99284